=== PATIENT | male | born 1950 | race Caucasian/White ===

== ENCOUNTER 2019-04-09 15:58 | Inpatient (IN) | payer BC, MEDICARE, OTHER ==
[2019-04-09] MEDS ORDERED: SODIUM CHLORIDE 0.9% 1,000 ML IV STA (16:33)
[2019-04-09] MEDS ORDERED: cefTRIAXone IN SWFI 1,000 MG/10 ML SYRINGE IVP STA (17:10)
[2019-04-09 18:07] LABS: Basophils % (A) 1 %; Eosinophils # (A) 0.4 k/uL (0-0.7); Eosinophils % (A) 6 %; HCT 38.9 % (39.0-53.0); HGB 12.5 gm/dL (13.0-17.5); Hypochromasia Slight; Lymphocytes # (A) 2.7 k/uL (1.0-4.8); Lymphocytes % (A) 36 %; MCH 29.5 pg (25.0-35.0); Mean Platelet Volume 6.8; Monocytes # (A) 0.4 k/uL (0-1.0); Monocytes % (A) 5 %; Neutrophils # (A) 3.9 k/uL (1.3-7.7); Neutrophils % (A) 52 %; Platelet Count 241 k/uL (150-450); RBC 4.23 m/uL (4.30-5.90); RDW 14.1 % (11.5-15.5); WBC 7.5 k/uL (3.8-10.6)
[2019-04-09 18:12] LABS: Appearance,Urine Clear (Clear); Bacteria,Urine Few /hpf; Bilirubin,Urine Negative (Negative); Blood,Urine Negative (Negative); Color,Urine Yellow; Glucose,Urine (UA) Negative (Negative); Ketones,Urine Negative (Negative); Leukocyte Esterase,Urine Trace (Negative); Mucus,Urine Rare /hpf; Nitrite,Urine Negative (Negative); PH, Urine 6.5 (5.0-8.0); Protein,Urine Negative (Negative); RBC,Urine <1 /hpf (0-5); Specific Gravity,Urine 1.008 (1.001-1.035); Sperm,Urine Rare /hpf; Squamous Epithelial Cell,Urine <1 /hpf (0-4); WBC,Urine 4 /hpf (0-5)
[2019-04-09 18:16] LABS: ALT 11 U/L (21-72); AST 24 U/L (17-59); African American GFR (CKD) >90 (>60 ml/min/1.73 sqM); Albumin 3.7 g/dL (3.5-5.0); Alkaline Phosphatase 64 U/L (38-126); Anion Gap 7 mmol/L; Blood Urea Nitrogen 9 mg/dL (9-20); Calcium 9.5 mg/dL (8.4-10.2); Carbon Dioxide 33 mmol/L (22-30); Chloride 101 mmol/L (98-107); Glucose 108 mg/dL (74-99); Magnesium 1.7 mg/dL (1.6-2.3); Non-African American GFR(CKD) 89 (>60 ml/min/1.73 sqM); Potassium 4.3 mmol/L (3.5-5.1); Sodium 141 mmol/L (137-145); Total Bilirubin 0.7 mg/dL (0.2-1.3); Total Protein 7.4 g/dL (6.3-8.2)
--- NOTE | 2019-04-09 18:17 | XR ---
EXAMINATION TYPE: XR femur LT DATE OF EXAM: 04/09/2019 COMPARISON: NONE HISTORY: Leg infection TECHNIQUE: 4 views FINDINGS: There is left hip prosthesis. Components are in anatomic position. Knee joint appears intac t. I see no focal bone destruction. There is atherosclerotic vascular calcification. IMPRESSION: Previous surgery. No acute abnormality of the left femur.
--- NOTE | 2019-04-09 19:19 | ED ---
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 Patient is seen by a wound care nurse. Patient was previously on 3 antibiotics for cellulitis and his left femur region. These were oral antibiotics. Patient did complete these, however does have some residual erythema in this region. Patient was advised wound care nurse who presented to ED. Denies any systemic symptoms. Denies other complaints. Systemic: Pt denies fatigue, fever/chills, rash. Pt denies weakness, night sweats, weight loss. Neuro: Pt denies headache, visual disturbances, syncope or pre-syncope. HEENT: Pt denies ocular discharge or irritation, otalgia, rhinorrhea, pharyngitis or notable lymphadenopathy. Cardiopulmonary: Pt denies chest pain, SOB, heart palpitations, dyspnea on exertion. Abdominal/GI: Pt denies abdominal pain, n/v/d. : Pt denies dysuria, burning w/ urination, frequency/urgency. Denies new onset urinary or bowel incontinence. MSK: Pt denies myalgia, loss of strength or function in extremities. Neuro: Pt denies new onset weakness, paresthesias. (Bryn Ching) - Related Data Allergies Allergy/AdvReac Type Severity Reaction Status Date / Time No Known Allergies Allergy Verified 04/09/19 16:04 Review of Systems ROS Other: All systems not noted in ROS Statement are negative. <Raul Mooney - Last Filed: 04/09/19 19:26> ROS Other: All systems not noted in ROS Statement are negative. <Bryn Ching - Last Filed: 04/09/19 19:39> ROS Statement: Those systems with pertinent positive or pertinent negative responses have been documented in the HPI. Past Medical History Past Medical History: CVA/TIA, Diabetes Mellitus, Hyperlipidemia, Hypertension, Myocardial Infarction ([place]) History of Any Multi-Drug Resistant Organisms: None Reported Past Surgical History: Appendectomy, Cholecystectomy, Coronary Bypass/CABG, Orthopedic Surgery Additional Past Surgical History / Comment(s): ANEURYSM REPAIR Past Psychological History: No Psychological Hx Reported Smoking Status: Former smoker Past Alcohol Use History: None Reported Past Drug Use History: None Reported <Bryn Ching - Last Filed: 04/09/19 19:39> General Exam Limitations: physical limitation <Bryn Ching - Last Filed: 04/09/19 19:39> - General Exam Comments Initial Comments: Constitutional: NAD, AOX3, Pt has pleasant affect. HEENT: NC/AT, trachea midline, neck supple, no lymphadenopathy. Posterior pharynx non erythematous, without exudates. External ears appear normal, without discharge. Mucous membranes moist. Eyes PERRLA, EOM intact. There is no scleral icterus. No pallor noted. Cardiopulmonary: RRR, no murmurs, rubs or gallops, no JVD noted. Lungs CTAB in anterior and posterior lan. No peripheral edema. Abdominal exam: Abdomen soft and non-distended. Abdomen non-tender to palpation in all 4 quadrants. Bowel sounds active in LLQ. No hepatosplenomegaly. No ecchymosis Neuro: CN II-XII grossly intact. No nuchal rigidity. No raccon eyes, no castillo sign, no hemotympanum. No cervical spinal tenderness. MSK: No posterior calf tenderness bilaterally, homans sign negative bilaterally. Posterior tibialis and radial pulse +2 bilaterally. Sensation intact in upper and lower extremities. Full active ROM in upper and lower extremities, 5/5 stregnth. Derm: Cellulitis noted on left lateral femur region. No fluctuance. No discharge. Intertrigo noted that skin flaps. (Bryn Ching) Course <Raul Mooney - Last Filed: 04/09/19 19:26> Vital Signs 04/09/19 04/09/19 04/09/19 16:05 16:30 17:00 Temperature 97.1 F L Pulse Rate 66 65 68 Respiratory 18 16 19 Rate Blood Pressure 105/71 105/71 105/71 O2 Sat by Pulse 98 97 Oximetry 04/09/19 04/09/19 17:30 18:30 Temperature Pulse Rate 67 66 Respiratory 15 16 Rate Blood Pressure 142/76 136/67 O2 Sat by Pulse 97 97 Oximetry - Reevaluation(s) Reevaluation #1: 04/09/19 19:26 PA supervision: I proceeded evaluate this case patient does demonstrate evidence of cellulitis. He will require admission with wound care and infectious disease consultation the case is discussed with Dr. Guerrero (Raul Mooney) Medical Decision Making - Lab Data Result diagrams: 04/09/19 17:39 04/09/19 17:39 <Raul Mooney - Last Filed: 04/09/19 19:26> - Lab Data Result diagrams: 04/09/19 17:39 04/09/19 17:39 <Bryn Ching - Last Filed: 04/09/19 19:39> - Medical Decision Making 69-year-old male patient presented to ED for cellulitis and left femur. Patient was in stable, afebrile. Physical exam displayed cellulitis, intertrigo. Laboratory investigations non-impressive. Plain film femur did not display acute process. Patient will be admitted, started on Rocephin. Blood cultures pending. Accepting physician Dr. Guerrero, ID on consult. Case discussed with Dr. Mooney. (Bryn Ching) - Lab Data Lab Results 04/09/19 04/09/19 04/09/19 Range/Units 17:39 17:39 17:42 WBC 7.5 (3.8-10.6) k/uL RBC 4.23 L (4.30-5.90) m/uL Hgb 12.5 L (13.0-17.5) gm/dL Hct 38.9 L (39.0-53.0) % MCV 92.0 (80.0-100.0) fL MCH 29.5 (25.0-35.0) pg MCHC 32.0 (31.0-37.0) g/dL RDW 14.1 (11.5-15.5) % Plt Count 241 (150-450) k/uL Neutrophils % 52 % Lymphocytes % 36 % Monocytes % 5 % Eosinophils % 6 % Basophils % 1 % Neutrophils # 3.9 (1.3-7.7) k/uL Lymphocytes # 2.7 (1.0-4.8) k/uL Monocytes # 0.4 (0-1.0) k/uL Eosinophils # 0.4 (0-0.7) k/uL Basophils # 0.0 (0-0.2) k/uL Hypochromasia Slight Sodium 141 (137-145) mmol/L Potassium 4.3 (3.5-5.1) mmol/L Chloride 101 (98-107) mmol/L Carbon Dioxide 33 H (22-30) mmol/L Anion Gap 7 mmol/L BUN 9 (9-20) mg/dL Creatinine 0.83 (0.66-1.25) mg/dL Est GFR (CKD-EPI)AfAm >90 (>60 ml/min/1.73 sqM) Est GFR (CKD-EPI)NonAf 89 (>60 ml/min/1.73 sqM) Glucose 108 H (74-99) mg/dL Plasma Lactic Acid [place] (0.7-2.0) mmol/L Calcium 9.5 (8.4-10.2) mg/dL Magnesium 1.7 (1.6-2.3) mg/dL Total Bilirubin 0.7 (0.2-1.3) mg/dL AST 24 (17-59) U/L ALT 11 L (21-72) U/L Alkaline Phosphatase 64 (38-126) U/L Total Protein 7.4 (6.3-8.2) g/dL Albumin 3.7 (3.5-5.0) g/dL Urine Color Yellow Urine Appearance Clear (Clear) Urine pH 6.5 (5.0-8.0) Ur Specific [place] 1.008 (1.001-1.035) Urine Protein Negative (Negative) Urine Glucose (UA) Negative (Negative) Urine Ketones Negative (Negative) Urine Blood Negative (Negative) Urine Nitrite Negative (Negative) Urine Bilirubin Negative (Negative) Urine Urobilinogen 2.0 (<2.0) mg/dL Ur Leukocyte Esterase Trace H (Negative) Urine RBC <1 (0-5) /hpf Urine WBC 4 (0-5) /hpf Ur Squamous Epith Cells <1 (0-4) /hpf Urine Bacteria Few H (None) /hpf Urine Mucus Rare H (None) /hpf Urine Sperm Rare (None) /hpf 04/09/19 Range/Units 18:00 WBC (3.8-10.6) k/uL RBC (4.30-5.90) m/uL Hgb (13.0-17.5) gm/dL Hct (39.0-53.0) % MCV (80.0-100.0) fL MCH (25.0-35.0) pg MCHC (31.0-37.0) g/dL RDW (11.5-15.5) % Plt Count (150-450) k/uL Neutrophils % % Lymphocytes % % Monocytes % % Eosinophils % % Basophils % % Neutrophils # (1.3-7.7) k/uL Lymphocytes # (1.0-4.8) k/uL Monocytes # (0-1.0) k/uL Eosinophils # (0-0.7) k/uL Basophils # (0-0.2) k/uL Hypochromasia Sodium (137-145) mmol/L Potassium (3.5-5.1) mmol/L Chloride (98-107) mmol/L Carbon Dioxide (22-30) mmol/L Anion Gap mmol/L BUN (9-20) mg/dL Creatinine (0.66-1.25) mg/dL Est GFR (CKD-EPI)AfAm (>60 ml/min/1.73 sqM) Est GFR (CKD-EPI)NonAf (>60 ml/min/1.73 sqM) Glucose (74-99) mg/dL Plasma Lactic Acid [place] 1.5 (0.7-2.0) mmol/L Calcium (8.4-10.2) mg/dL Magnesium (1.6-2.3) mg/dL Total Bilirubin (0.2-1.3) mg/dL AST (17-59) U/L ALT (21-72) U/L Alkaline Phosphatase (38-126) U/L Total Protein (6.3-8.2) g/dL Albumin (3.5-5.0) g/dL Urine Color Urine Appearance (Clear) Urine pH (5.0-8.0) Ur Specific [place] (1.001-1.035) Urine Protein (Negative) Urine Glucose (UA) (Negative) Urine Ketones (Negative) Urine Blood (Negative) Urine Nitrite (Negative) Urine Bilirubin (Negative) Urine Urobilinogen (<2.0) mg/dL Ur Leukocyte Esterase (Negative) Urine RBC (0-5) /hpf Urine WBC (0-5) /hpf Ur Squamous Epith Cells (0-4) /hpf Urine Bacteria (None) /hpf Urine Mucus (None) /hpf Urine Sperm (None) /hpf Disposition <Raul Mooney - Last Filed: 04/09/19 19:26> Is patient prescribed a controlled substance at d/c from ED?: No <Bryn Ching - Last Filed: 04/09/19 19:39> Clinical Impression: Cellulitis Disposition: ADMITTED IP TO THIS HOSP Condition: Fair Referrals: [facility],Clinic [Primary Care Provider] - 1-2 days
[2019-04-09] MEDS ORDERED: NALOXONE 0.4 MG/ML 1 ML VIAL IV PRN (19:39)
[2019-04-09] MEDS ORDERED: IBUPROFEN 400 MG TAB PO PRN (19:39)
[2019-04-09] MEDS: SODIUM CHLORIDE 0.9% 1,000 ML IV SCH (20:22)
[2019-04-09] MEDS: PIPERACILLIN-TAZOBACTAM 3.375 GM in SODIUM CHLORIDE 0.9% 100 ML IVPB SCH (20:23)
[2019-04-09] MEDS ORDERED: ALPRAZolam 0.5 MG TAB PO PRN (21:12)
[2019-04-09] MEDS ORDERED: FLUCONAZOLE 100 MG TAB PO ONE (21:14)
[2019-04-09 21:33] LABS: Glucose,Whole Blood 88 mg/dL (75-99)
[2019-04-09 21:36] VITALS: BMI 78.1
--- NOTE | 2019-04-09 23:54 | HP ---
HISTORY AND PHYSICAL CHIEF COMPLAINT: Pain and swelling of the left leg. HISTORY OF PRESENT ILLNESS: This 69-year-old gentleman with a past medical history of multiple medical problems, including a stroke on the left side in July, history of diabetes, hypertension, hyperlipidemia, myocardial infarction, cholecystectomy, CAD, CABG being followed by Dr. Fernandez in the outpatient setting was noted to have significant ulcerations, cellulitis on the left femur area. The patient also excoriated, the patient apparently had some urinary incontinence. External urinary catheter is also being used. The patient presented to [facility] Emergency Room and was admitted for further evaluation and treatment. Minimal areas of excoriations noted. There is no history of fever, rigors, chills at this time. PAST MEDICAL HISTORY: CVA, TIA, diabetes type 2, hypertension, hyperlipidemia, myocardial infarction, appendectomy, CAD, CABG, aneurysm repair. MEDICATIONS: Home medications are: 1. Simvastatin 1 tablet p.o. daily. 2. Multivitamins 1 p.o. daily. 3. Melatonin 5 mg q.h.s. 4. Prinivil 10 mg p.o. daily. 5. Lantus 40 units subcu daily. 6. Imdur 1 tab. 7. Hydrochlorothiazide 1 tab daily. 8. Hydrocodone. 9. [place] 5 mg daily. 10.Neurontin 300 mg p.o. daily. 11.Effexor XR 1 capsule p.o. daily. 12.Plavix 75 mg p.o. daily. 13.Tenormin 12.5 mg p.o. daily. 14.Ecotrin 81 mg p.o. daily. 15.Xanax 0.5 daily p.r.n. ALLERGIES: None. FAMILY HISTORY: No history of heart disease or strokes in the family. SOCIAL HISTORY: Previous history of smoking. No history of alcohol or smoking currently. REVIEW OF SYSTEMS: ENT diminished vision. Diminished hearing. CARDIOVASCULAR: No angina or palpitations. RESPIRATION: No cough or hemoptysis. GI no nausea or vomiting. : As mentioned earlier. NERVOUS SYSTEM: As mentioned earlier. ALLERGY/IMMUNOLOGY: No asthma or hayfever. MUSCULOSKELETAL: As mentioned earlier. HEMATOLOGY/ONCOLOGY: No history of anemia. ENDOCRINE: As mentioned earlier. CONSTITUTIONAL: As mentioned earlier. DERMATOLOGY negative. PSYCHIATRY as mentioned. RHEUMATOLOGY: Negative. PHYSICAL EXAMINATION: Alert and oriented x3. Pulse is 67. Blood pressure 142/70. Respirations 20. Temperature normal. Pulse ox 97% on room air. HEENT: Conjunctivae normal. Oral mucosa moist. NECK is no jugular venous distention. No carotid bruit. No lymph node enlargement. CARDIOVASCULAR: S1, S2 muffled. RESPIRATORY: Breath sounds diminished in the bases. A few scattered rhonchi. No crackles. ABDOMEN: Soft, nontender. No mass palpable. LEGS: Significant erythema and cellulitis. Excoriation of the left femur in the groin area also present. NERVOUS SYSTEM: Higher functions as mentioned earlier, significant weakness of the left side with some contractures also present. SKIN: As mentioned earlier. JOINTS: No active deforming arthropathy. Lymphatics: No lymph nodes palpable in the neck, axillae or groin. LAB: WBC 7.5, hemoglobin 12.5. Other labs are reviewed. UA noted. Femur x-ray reviewed which showed previous surgery. No acute fracture. ASSESSMENT: 1. Significant cellulitis and severe pain of the left leg with failure of outpatient treatment. 2. Possibly candidal intertrigo. 3. Cerebrovascular accident, transient ischemic attack history with left-sided residual paralysis/weakness. 4. Diabetes mellitus type 2. 5. Hypertension. 6. Hyperlipidemia. 7. Gait dysfunction. 8. History of myocardial infarction. 9. History of coronary artery disease, coronary artery bypass grafting. 10.History of orthopedic surgery. 11.History of aneurysm repair. 12.History of nicotine dependence. 13.Obesity with body mass index of 34.4. RECOMMENDATIONS AND DISCUSSION: In this 69-year-old gentleman who presented with multiple complex medical issues, we will monitor the patient closely, continue the current medications, management and we will initiate broad-spectrum antibiotics and antifungals. Symptomatic treatment, pain management. Otherwise DVT prophylaxis and also Infectious Disease evaluation. Resume the home medication. Monitor blood sugars closely. Prognosis guarded because of multiple complex medical issues. A copy of this dictation being forwarded to Dr. Fernandez who is the primary physician. MMODL / IJN: [id number] /
[2019-04-10] MEDS: SODIUM CHLORIDE 0.9% 1,000 ML IV SCH (05:51)
[2019-04-10 07:03] LABS: Glucose,Whole Blood 119 mg/dL (75-99)
[2019-04-10] MEDS: PANTOPRAZOLE 40 MG TABLET PO SCH (08:13)
[2019-04-10] MEDS: GABAPENTIN 300 MG CAP PO SCH (08:13)
[2019-04-10] MEDS: CLOPIDOGREL 75 MG TAB PO SCH (08:13)
[2019-04-10] MEDS: ASPIRIN 81 MG PO SCH (08:13)
[2019-04-10] MEDS: MULTIVITAMINS, THERA 1 EACH TAB PO SCH (08:13)
[2019-04-10] MEDS: ATENOLOL 25 MG TAB PO SCH (08:14)
[2019-04-10] MEDS: LISINOPRIL 10 MG TAB PO SCH (08:14)
[2019-04-10] MEDS: FLUCONAZOLE 100 MG TAB PO SCH (08:14)
[2019-04-10] MEDS: INSULIN DETEMIR (LEVEMIR) 100 UNIT/ML SYR SQ SCH (08:14)
[2019-04-10] MEDS: HEPARIN SODIUM,PORCINE 5,000 UNIT/ML 1 ML VIAL SQ SCH ×2 (08:15→21:56)
[2019-04-10] MEDS: INSULIN ASPART (NovoLOG) 100 UNIT/ML VIAL SQ SCH ×4 (08:29→21:59)
[2019-04-10] MEDS: PIPERACILLIN-TAZOBACTAM 3.375 GM in SODIUM CHLORIDE 0.9% 100 ML IVPB SCH ×2 (08:37→15:05)
[2019-04-10 08:57] LABS: Basophils % (A) 1 %; Eosinophils # (A) 0.4 k/uL (0-0.7); Eosinophils % (A) 5 %; HCT 40.7 % (39.0-53.0); HGB 12.5 gm/dL (13.0-17.5); Hypochromasia Slight; Lymphocytes # (A) 2.3 k/uL (1.0-4.8); Lymphocytes % (A) 33 %; MCH 28.6 pg (25.0-35.0); MCHC 30.7 g/dL (31.0-37.0); Mean Platelet Volume 6.8; Monocytes # (A) 0.4 k/uL (0-1.0); Monocytes % (A) 6 %; Neutrophils # (A) 3.8 k/uL (1.3-7.7); Neutrophils % (A) 54 %; Platelet Count 237 k/uL (150-450); RBC 4.37 m/uL (4.30-5.90); RDW 13.9 % (11.5-15.5)
[2019-04-10] MEDS ORDERED: HYDROcodone/APAP 5-325MG 1 EACH TAB PO PRN (09:00)
[2019-04-10 09:12] LABS: African American GFR (CKD) >90 (>60 ml/min/1.73 sqM); Anion Gap 9 mmol/L; Blood Urea Nitrogen 8 mg/dL (9-20); Calcium 9.2 mg/dL (8.4-10.2); Carbon Dioxide 27 mmol/L (22-30); Chloride 106 mmol/L (98-107); Glucose 113 mg/dL (74-99); Non-African American GFR(CKD) 89 (>60 ml/min/1.73 sqM); Potassium 4.3 mmol/L (3.5-5.1); Sodium 142 mmol/L (137-145)
[2019-04-10 12:32] LABS: Glucose,Whole Blood 114 mg/dL (75-99)
[2019-04-10] MEDS: ATORVASTATIN 20 MG TAB PO SCH (15:04)
[2019-04-10] MEDS: VENLAFAXINE HCL ER 37.5 MG CAP PO SCH (15:05)
[2019-04-10] MEDS: ISOSORBIDE MONONITRATE ER 30 MG TAB.ER.24H PO SCH (15:05)
[2019-04-10 17:25] LABS: Glucose,Whole Blood 83 mg/dL (75-99)
--- NOTE | 2019-04-10 17:43 | PN ---
PROGRESS NOTE DATE OF SERVICE: 04/10/2019 This is 69-year-old gentleman who had a past medical history of significant stroke was admitted with significant cellulitis and fungal candidiasis to the hospital. The patient was given IV antibiotics. Patient being closely monitored at this time. Infectious Disease following the patient closely. PAST MEDICAL HISTORY: Reviewed. REVIEW OF SYSTEMS: CARDIOVASCULAR SYSTEM: No angina or palpitations. RESPIRATORY: As mentioned earlier. GI no nausea or vomiting. no dysuria. NERVOUS SYSTEM: No numbness or weakness. CURRENT MEDICATIONS: Reviewed and include: 1. [place] 5 mg q.4 p.r.n. 2. Xanax 0.5 daily. 3. Aspirin 81 mg daily. 4. Tenormin 12.5 mg. 5. Lipitor 20 mg daily. 6. Plavix 75 mg daily. 7. Diflucan 100 mg p.o. daily. 8. Neurontin 300 mg p.o. daily. 9. Heparin 5000 units subcu b.i.d. 10.Motrin 400 mg q.6h. 11.NovoLog scale. 12.Levemir 40 units subcu daily. 13.Imdur 30 mg p.o. daily. 14.Zestril 10 mg p.o. daily. 15.Melatonin 5 mg p.o. q.h.s. 16.Multivitamins one p.o. daily. 17.Narcan 0.2 q.2 p.r.n. 18.Protonix 40 mg daily. 19.Zosyn 3.375 IV q.8. 20.Effexor XR 37.5 mg p.o. daily. PHYSICAL EXAMINATION: Alert and oriented times three. Pulse 62, blood pressure 150/55, respiration 16, temperature 98 degrees, pulse ox 98% on room air. HEENT: Conjunctivae normal. Oral mucosa moist. NECK is no jugular venous distention. No carotid bruit. No lymph node enlargement. CARDIOVASCULAR: S1, S2 muffled. RESPIRATORY: Breath sounds diminished in the bases. A few scattered rhonchi and crackles. ABDOMEN: Soft. Nontender. LEGS significant swelling and edema and erythema of the left leg present. Fungal intertrigo present. NERVOUS SYSTEM: Higher functions as mentioned earlier. Moves right-sided. Left-sided hemiplegia with some contractures present. SKIN as mentioned. JOINTS: No active deforming arthropathy. LABS: WBC 7, hemoglobin 12.5, glucose 113. ASSESSMENT: 1. Severe cellulitis and severe pain of the left leg with failure of outpatient treatment. 2. Possibly [place] intertrigo. 3. Cerebrovascular accident/transient ischemic attack with history of left-sided residual paralysis and weakness. 4. Diabetes type 2. 5. Hypertension. 6. Hyperlipidemia. 7. Gait dysfunction. 8. History of myocardial infarction. 9. History of coronary artery disease, coronary artery bypass grafting. 10.History of orthopedic surgery. 11.History of aneurysm repair. 12.History of nicotine dependence. 13.History of obesity with body mass index of 34.4. RECOMMENDATIONS AND DISCUSSION: I recommend to continue current medications, management and continue the antibiotics, antifungals. Continue symptomatic treatment. DVT prophylaxis. Resume the home medications. Repeat labs. Monitor blood sugars closely. Prognosis guarded because of multiple complex medical issues. Further recommendations to follow. DONNA / SUBHA: [id number] /
[2019-04-10 20:53] LABS: Glucose,Whole Blood 120 mg/dL (75-99)
--- NOTE | 2019-04-10 23:48 | P.CONS ---
History of Present Illness - Reason for Consult Consult date: 04/10/19 - Chief Complaint Weakness and tenderness - History of Present Illness 69 male who has a long-standing history of many medical troubles and includes diabetes hypertension coronary artery disease and this past year developed a cerebrovascular accident with dense left hemiparesis. He is cared for by family in the home setting. Is having increasing difficulties with the irritation to the skin in the groin as well as onto the left lateral thigh area. It's become painful a to feel poorly and low-grade fever Lorenzo was brought to Hospital further evaluation. He is not a good historian. Transfer text Review of Systems HEENT:Denies headache or acute visual change. Has had some chronic sinus difficulties no difficulty with swallowing after his stroke. Lungs: Denies significant shortness of breath, cough, sputum production, or hemoptysis. Cardiovascular: Denies significant shortness of breath, chest pain, chest wall pain, orthopnea, dyspnea on exertion, syncope Gastrointestinal:Denies nausea, vomiting, diarrhea, constipation, hematemesis, melena, hematochezia. No no significant change of bowel habit noticed. Musculoskeletal: denies significant myalgias or arthralgias. No new joint swelling. Denies new back pain. Skin: Denies new rash or lesions. No new ulcers or wounds are related.. Neuro: Chronic left hemiparesis, relates that with a walker is able to stand briefly on the right lower extremity which helps him with his transfers at home they do utilize slide boards also no Marlene lift Psychiatric: Chronic anxiety and depression since the stroke Endocrine: Chronic fatigue weight has increased Past Medical History Past Medical History: CVA/TIA, Diabetes Mellitus, Hyperlipidemia, Hypertension, Myocardial Infarction (DE) Additional Past Medical History / Comment(s): CVA July 2018. Last Myocardial Infarction Date:: 1998 History of Any Multi-Drug Resistant Organisms: None Reported Past Surgical History: Appendectomy, Cholecystectomy, Coronary Bypass/CABG, Orthopedic Surgery Additional Past Surgical History / Comment(s): ANEURYSM REPAIR Past Psychological History: No Psychological Hx Reported Additional Psychological History / Comment(s): and lives in the family home with the and family members. Moved from [place]. 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 No tobacco use. No experience. No recent travel. Pet dog in the home Smoking Status: Former smoker Past Alcohol Use History: None Reported Past Drug Use History: None Reported Medications and Allergies Home Medications and Allergies Comment(s): Current Medications Hydrocodone Bitart/Acetaminophen (Ralston 5-325) 1 each PO Q4HR PRN PRN Reason: Moderate Pain Hydrocodone Bitart/Acetaminophen (Ralston 5-325) 1 each PO DAILY PRN PRN Reason: MODERATE PAIN Alprazolam (Xanax) 0.5 mg PO DAILY PRN PRN Reason: Anxiety Aspirin (Aspirin) 81 mg PO DAILY [facility] Last Admin: 04/10/19 08:13 Dose: 81 mg Documented by: Atenolol (Tenormin) 12.5 mg PO DAILY [facility] Last Admin: 04/10/19 08:14 Dose: 12.5 mg Documented by: Atorvastatin Calcium (Lipitor) 20 mg PO DAILY [facility] Last Admin: 04/10/19 15:04 Dose: 20 mg Documented by: Clopidogrel Bisulfate (Plavix) 75 mg PO DAILY [facility] Last Admin: 04/10/19 08:13 Dose: 75 mg Documented by: Fluconazole (Diflucan) 100 mg PO DAILY [facility] Last Admin: 04/10/19 08:14 Dose: 100 mg Documented by: Gabapentin (Neurontin) 300 mg PO DAILY [facility] Last Admin: 04/10/19 08:13 Dose: 300 mg Documented by: Heparin Sodium (Porcine) (Heparin) 5,000 unit SQ Q12HR [facility] Last Admin: 04/10/19 21:56 Dose: 5,000 unit Documented by: Sodium Chloride (Saline 0.9%) 1,000 mls @ 20 mls/hr IV .Q24H [facility] Last Admin: 04/10/19 05:51 Dose: Not Given Documented by: Piperacillin Sod/Tazobactam (Sod 3.375 gm/ Sodium Chloride) 100 mls @ 25 mls/hr IVPB Q8HR [facility] Last Admin: 04/10/19 15:05 Dose: 25 mls/hr Documented by: Ibuprofen (Motrin) 400 mg PO Q6HR PRN PRN Reason: Mild Pain or Fever > 100.5 Insulin Aspart (Novolog) 0 unit SQ ACHS [facility]; Protocol Last Admin: 04/10/19 21:59 Dose: Not Given Documented by: Insulin Detemir (Levemir) 40 unit SQ DAILY@0700 [facility] Last Admin: 04/10/19 08:14 Dose: 40 unit Documented by: Isosorbide Mononitrate (Imdur) 30 mg PO DAILY [facility] Last Admin: 04/10/19 15:05 Dose: 30 mg Documented by: Lisinopril (Zestril) 10 mg PO DAILY [facility] Last Admin: 04/10/19 08:14 Dose: 10 mg Documented by: Melatonin (Melatonin) 5 mg PO HS PRN PRN Reason: Insomnia Multivitamins (Theragran) 1 each PO DAILY [facility] Last Admin: 04/10/19 08:13 Dose: 1 each Documented by: Naloxone HCl (Narcan) 0.2 mg IV Q2M PRN PRN Reason: Opioid Reversal Pantoprazole Sodium (Protonix) 40 mg PO AC-BRKFST [facility] Last Admin: 04/10/19 08:13 Dose: 40 mg Documented by: Venlafaxine HCl (Effexor Xr) 37.5 mg PO DAILY [facility] Last Admin: 04/10/19 15:05 Dose: 37.5 mg Documented by: Home Medications Medication Instructions Recorded Confirmed Type ALPRAZolam [Xanax] 0.5 mg PO DAILY PRN 04/09/19 04/09/19 History Aspirin EC [Ecotrin Low Dose] 81 mg PO DAILY 04/09/19 04/09/19 History Atenolol [Tenormin] 12.5 mg PO DAILY 04/09/19 04/09/19 History Clopidogrel [Plavix] 75 mg PO DAILY 04/09/19 04/09/19 History Gabapentin [Neurontin] 300 mg PO DAILY 04/09/19 04/09/19 History HYDROcodone/APAP 5-325MG [Ralston 1 tab PO DAILY 04/09/19 04/09/19 History 5-325] Insulin Glargine,Hum.rec.anlog 40 unit SQ DAILY 04/09/19 04/09/19 History [Lantus Solostar] Lisinopril [Prinivil] 10 mg PO DAILY 04/09/19 04/09/19 History Melatonin 5 mg PO HS 04/09/19 04/09/19 History Multivitamins, Thera [Multivitamin 1 tab PO DAILY 04/09/19 04/09/19 History (formulary)] Hydrochlorothiazide 12.5 mg PO DAILY 04/10/19 04/10/19 History Isosorbide Mononitrate ER [Imdur] 30 mg PO DAILY 04/10/19 04/10/19 History Simvastatin [Zocor] 40 mg PO DAILY 04/10/19 04/10/19 History Venlafaxine HCl ER [Effexor Xr] 37.5 mg PO DAILY 04/10/19 04/10/19 History Allergies Allergy/AdvReac Type Severity Reaction Status Date / Time No Known Allergies Allergy Verified 04/09/19 19:58 Physical Exam Vitals: Vital Signs Temp Pulse Resp BP Pulse Ox 04/10/19 13:10 98.0 F 62 16 150/55 98 04/10/19 04:35 98.2 F 76 20 134/69 96 Intake and Output 04/10/19 04/10/19 04/11/19 14:59 22:59 06:59 Intake Total 950 Balance 950 Intake: Oral 950 Other: Voiding Method Urinal Urinal # Voids 3 0 # Bowel Movements 1 Obese 69-year-old male comfortable HEENT: Anicteric conjunctiva are pink and moist nasal mucosa grossly intact without significant lesions, there is no thrush. Neck: The neck is supple without significant lymphadenopathy or thyromegaly. Lungs: Good bilateral air entry without significant crackles or wheezing. There is no significant bronchial sounds. There is no egophony or dullness. Heart: Regular rate and rhythm with an audible S1-S2, no S3 no S4. There is no significant murmur click or rub, PMI was nondisplaced. Abdomen: Positive bowel sounds soft and nontender without palpable masses or organomegaly. There was no guarding or rebound. Extremities: The upper extremities have excellent pulses they are symmetric, no significant petechiae or telangiectasia. No splinter hemorrhages were noted. The lower extremities are free from significant edema. The peripheral pulses were 2+ and symmetric. Neuro: Dense left hemiparesis is able to speak, he is able to self feed. Skin reveals evidence of the dense erythema to the groin and upper thighs and lateral left thigh area. There is some mild erythema also to the base of the scrotum but no significant ulcerations are seen at this time. Results CBC & Chem 7: 04/10/19 08:04 04/10/19 08:04 Labs: Abnormal Lab Results - Last 24 Hours (Table) 04/10/19 04/10/19 04/10/19 Range/Units 07:01 08:04 08:04 Hgb 12.5 L (13.0-17.5) gm/dL MCHC 30.7 L (31.0-37.0) g/dL BUN 8 L (9-20) mg/dL Glucose 113 H (74-99) mg/dL POC Glucose (mg/dL) 119 H (75-99) mg/dL 04/10/19 04/10/19 Range/Units 12:24 20:49 Hgb (13.0-17.5) gm/dL MCHC (31.0-37.0) g/dL BUN (9-20) mg/dL Glucose (74-99) mg/dL POC Glucose (mg/dL) 114 H 120 H (75-99) mg/dL Microbiology - Last 24 Hours (Table) 04/09/19 17:39 Blood Culture - Preliminary Blood No Growth after 24 hours 04/10/19 04:45 Gram Stain - Preliminary Thigh - Left Wound Culture - Preliminary 04/10/19 04:45 Anaerobic Culture - Preliminary Thigh - Left Laboratory Results WBC 7.0 k/uL (3.8-10.6) 04/10/19 08:04 RBC 4.37 m/uL (4.30-5.90) 04/10/19 08:04 Hgb 12.5 gm/dL (13.0-17.5) L 04/10/19 08:04 Hct 40.7 % (39.0-53.0) 04/10/19 08:04 MCV 93.0 fL (80.0-100.0) 04/10/19 08:04 MCH 28.6 pg (25.0-35.0) 04/10/19 08:04 MCHC 30.7 g/dL (31.0-37.0) L 04/10/19 08:04 RDW 13.9 % (11.5-15.5) 04/10/19 08:04 Plt Count 237 k/uL (150-450) 04/10/19 08:04 Neutrophils % 54 % 04/10/19 08:04 Lymphocytes % 33 % 04/10/19 08:04 Monocytes % 6 % 04/10/19 08:04 Eosinophils % 5 % 04/10/19 08:04 Basophils % 1 % 04/10/19 08:04 Neutrophils # 3.8 k/uL (1.3-7.7) 04/10/19 08:04 Lymphocytes # 2.3 k/uL (1.0-4.8) 04/10/19 08:04 Monocytes # 0.4 k/uL (0-1.0) 04/10/19 08:04 Eosinophils # 0.4 k/uL (0-0.7) 04/10/19 08:04 Basophils # 0.0 k/uL (0-0.2) 04/10/19 08:04 Hypochromasia Slight 04/10/19 08:04 Sodium 142 mmol/L (137-145) 04/10/19 08:04 Potassium 4.3 mmol/L (3.5-5.1) 04/10/19 08:04 Chloride 106 mmol/L (98-107) 04/10/19 08:04 Carbon Dioxide 27 mmol/L (22-30) 04/10/19 08:04 Anion Gap 9 mmol/L 04/10/19 08:04 BUN 8 mg/dL (9-20) L 04/10/19 08:04 Creatinine 0.81 mg/dL (0.66-1.25) 04/10/19 08:04 Est GFR (CKD-EPI)AfAm >90 (>60 ml/min/1.73 sqM) 04/10/19 08:04 Est GFR (CKD-EPI)NonAf 89 (>60 ml/min/1.73 sqM) 04/10/19 08:04 Glucose 113 mg/dL (74-99) H 04/10/19 08:04 POC Glucose (mg/dL) 120 mg/dL (75-99) H 04/10/19 20:49 POC Glu [employer] Supervisor ID Allie Martin 04/10/19 20:49 Plasma Lactic Acid Deangelo 1.5 mmol/L (0.7-2.0) 04/09/19 18:00 Calcium 9.2 mg/dL (8.4-10.2) 04/10/19 08:04 Magnesium 1.7 mg/dL (1.6-2.3) 04/09/19 17:39 Total Bilirubin 0.7 mg/dL (0.2-1.3) 04/09/19 17:39 AST 24 U/L (17-59) 04/09/19 17:39 ALT 11 U/L (21-72) L 04/09/19 17:39 Alkaline Phosphatase 64 U/L (38-126) 04/09/19 17:39 Total Protein 7.4 g/dL (6.3-8.2) 04/09/19 17:39 Albumin 3.7 g/dL (3.5-5.0) 04/09/19 17:39 Urine Color Yellow 04/09/19 17:42 Urine Appearance Clear (Clear) 04/09/19 17:42 Urine pH 6.5 (5.0-8.0) 04/09/19 17:42 Ur Specific [place] 1.008 (1.001-1.035) 04/09/19 17:42 Urine Protein Negative (Negative) 04/09/19 17:42 Urine Glucose (UA) Negative (Negative) 04/09/19 17:42 Urine Ketones Negative (Negative) 04/09/19 17:42 Urine Blood Negative (Negative) 04/09/19 17:42 Urine Nitrite Negative (Negative) 04/09/19 17:42 Urine Bilirubin Negative (Negative) 04/09/19 17:42 Urine Urobilinogen 2.0 mg/dL (<2.0) 04/09/19 17:42 Ur Leukocyte Esterase Trace (Negative) H 04/09/19 17:42 Urine RBC <1 /hpf (0-5) 04/09/19 17:42 Urine WBC 4 /hpf (0-5) 04/09/19 17:42 Ur Squamous Epith Cells <1 /hpf (0-4) 04/09/19 17:42 Urine Bacteria Few /hpf (None) H 04/09/19 17:42 Urine Mucus Rare /hpf (None) H 04/09/19 17:42 Urine Sperm Rare /hpf (None) 04/09/19 17:42 Microbiology 04/09/19 17:39 Blood Blood Culture - Preliminary No Growth after 24 hours 04/10/19 04:45 Thigh - Left Gram Stain - Preliminary 04/10/19 04:45 Thigh - Left Wound Culture - Preliminary 04/10/19 04:45 Thigh - Left Anaerobic Culture - Preliminary Assessment and Plan (1) Cellulitis Narrative/Plan: 69-year-old male who has a history of obesity, diabetes, coronary artery disease in the extensive stroke with the left hemiparesis is under the care of his family home setting. He has difficulty with urinary incontinence is now developed evidence of the stability and irritation to the skin in the perineum bilateral thighs and on the left lateral thigh. There are no significant open ulcerations but there is evidence of the significant erythema and Eloise infection of this region. Antibiotic therapy has been initiated with Zosyn and antifungal therapy with fluconazole. Intertrigo is requested for the abdominal fold. And from the cart with thick zinc cream can be utilized to cover all of these areas to allow some healing. Cultures are process will further help direct antibiotic therapy. It is not clear if the plan at this point in time is for the patient to go to rehab for a while to allow some improvement of his status. Assessment of his equipment for home could be helpful ensure that he has an air mattress, Roho cushion for his wheelchair and may do well to have a Marlene lift if needed. Enhance glucose control will help with the cutaneous infections. Current Visit: Yes Status: Acute Code(s): L03.90 - CELLULITIS, UNSPECIFIED SNOMED Code(s): 177444590 (2) Eloise infection Current Visit: Yes Status: Acute Code(s): B37.9 - CANDIDIASIS, UNSPECIFIED SNOMED Code(s): 59218510 (3) Eloise infection of genital region Current Visit: Yes Status: Acute Code(s): B37.49 - OTHER UROGENITAL CANDIDIASIS SNOMED Code(s): 911064796 (4) Hemiparesis affecting left side as late effect of cerebrovascular accident Current Visit: Yes Status: Acute Code(s): I69.354 - HEMIPLGA FOLLOWING CEREBRAL INFRC AFFECTING LEFT NONDOM SIDE SNOMED Code(s): 181092825
[2019-04-11] MEDS: PIPERACILLIN-TAZOBACTAM 3.375 GM in SODIUM CHLORIDE 0.9% 100 ML IVPB SCH ×4 (00:20→23:34)
[2019-04-11] MEDS: SODIUM CHLORIDE 0.9% 1,000 ML IV SCH (06:04)
[2019-04-11 07:04] LABS: Glucose,Whole Blood 110 mg/dL (75-99)
[2019-04-11] MEDS: INSULIN ASPART (NovoLOG) 100 UNIT/ML VIAL SQ SCH ×4 (07:11→22:29)
[2019-04-11] MEDS: ATORVASTATIN 20 MG TAB PO SCH (08:22)
[2019-04-11] MEDS: CLOPIDOGREL 75 MG TAB PO SCH (08:22)
[2019-04-11] MEDS: FLUCONAZOLE 100 MG TAB PO SCH (08:22)
[2019-04-11] MEDS: PANTOPRAZOLE 40 MG TABLET PO SCH (08:22)
[2019-04-11] MEDS: ASPIRIN 81 MG PO SCH (08:22)
[2019-04-11] MEDS: LISINOPRIL 10 MG TAB PO SCH (08:23)
[2019-04-11] MEDS: ATENOLOL 25 MG TAB PO SCH (08:23)
[2019-04-11] MEDS: MULTIVITAMINS, THERA 1 EACH TAB PO SCH (08:23)
[2019-04-11] MEDS: VENLAFAXINE HCL ER 37.5 MG CAP PO SCH (08:23)
[2019-04-11] MEDS: ISOSORBIDE MONONITRATE ER 30 MG TAB.ER.24H PO SCH (08:23)
[2019-04-11] MEDS: GABAPENTIN 300 MG CAP PO SCH (08:23)
[2019-04-11] MEDS: INSULIN DETEMIR (LEVEMIR) 100 UNIT/ML SYR SQ SCH (08:24)
[2019-04-11] MEDS: HEPARIN SODIUM,PORCINE 5,000 UNIT/ML 1 ML VIAL SQ SCH ×2 (08:27→22:29)
[2019-04-11 08:36] LABS: Basophils # (A) 0.1 k/uL (0-0.2); Basophils % (A) 1 %; Eosinophils # (A) 0.3 k/uL (0-0.7); Eosinophils % (A) 4 %; HCT 37.1 % (39.0-53.0); HGB 11.8 gm/dL (13.0-17.5); Lymphocytes # (A) 2.5 k/uL (1.0-4.8); Lymphocytes % (A) 33 %; MCH 29.6 pg (25.0-35.0); MCHC 31.7 g/dL (31.0-37.0); MCV 93.4 fL (80.0-100.0); Mean Platelet Volume 7.1; Monocytes # (A) 0.5 k/uL (0-1.0); Monocytes % (A) 6 %; Neutrophils # (A) 4.2 k/uL (1.3-7.7); Neutrophils % (A) 55 %; Platelet Count 216 k/uL (150-450); RBC 3.98 m/uL (4.30-5.90); RDW 15.1 % (11.5-15.5); WBC 7.7 k/uL (3.8-10.6)
[2019-04-11 08:41] LABS: African American GFR (CKD) >90 (>60 ml/min/1.73 sqM); Anion Gap 5 mmol/L; Blood Urea Nitrogen 8 mg/dL (9-20); Calcium 8.9 mg/dL (8.4-10.2); Carbon Dioxide 29 mmol/L (22-30); Chloride 107 mmol/L (98-107); Glucose 110 mg/dL (74-99); Non-African American GFR(CKD) 82 (>60 ml/min/1.73 sqM); Potassium 4.1 mmol/L (3.5-5.1); Sodium 141 mmol/L (137-145)
[2019-04-11] MEDS: HYDROcodone/APAP 5-325MG 1 EACH TAB PO PRN (09:55)
[2019-04-11 12:02] LABS: Glucose,Whole Blood 100 mg/dL (75-99)
[2019-04-11 16:59] LABS: Glucose,Whole Blood 101 mg/dL (75-99)
--- NOTE | 2019-04-11 17:41 | PN ---
PROGRESS NOTE DATE OF SERVICE: 04/11/2019 This 69-year-old gentleman was admitted with acute cellulitis and pain is being closely monitored at this time. No chest pain. No palpitations. No fever. Infectious Disease following the patient closely. The patient is on IV antibiotics. PHYSICAL EXAM: Alert and oriented x3. Pulse 79, blood pressure 150/70, respiration 20, temperature 97.6, pulse ox 94% on room air. HEENT are conjunctivae normal. Oral mucosa moist. NECK is no jugular venous distention. No carotid bruit. No lymph node enlargement. Cardiovascular system: S1, S2 muffled. RESPIRATORY: Breath sounds diminished in the bases. Scattered rhonchi. ABDOMEN: Soft, nontender. LEGS: Significant pain and swelling and infection of the left leg all the present from the groin cellulitis. Significantly Eloise intertrigo also present. Neurology unchanged. LABORATORY DATA: WBC 7.2, hemoglobin 11.8, glucose noted. ASSESSMENT: 1. Severe cellulitis with severe pain of the left leg with failure of outpatient treatment. 2. Possible Eloise intertrigo. 3. Cerebrovascular accident/transient ischemic attack with history of left-sided residual weakness with residual weakness and paralysis. 4. Diabetes type 2. 5. Hypertension. 6. Hyperlipidemia. 7. Gait dysfunction. 8. History of myocardial infarction. 9. History of coronary artery disease, coronary artery bypass grafting. 10.History of orthopedic surgery. 11.History of aneurysm repair. 12.History of nicotine dependence. 13.Obesity with body mass index of 34.4. RECOMMENDATIONS AND DISCUSSION: Recommend to continue current medications, management and symptomatic treatment. Continue with IV antibiotics. PT/OT evaluation. The patient would like to return home at this time. Further recommendations to follow. MMODL / IJN: [id number] / LAVON
[2019-04-11 21:01] LABS: Glucose,Whole Blood 99 mg/dL (75-99)
[2019-04-12] MEDS: SODIUM CHLORIDE 0.9% 1,000 ML IV SCH (04:51)
[2019-04-12 07:24] LABS: Glucose,Whole Blood 95 mg/dL (75-99)
[2019-04-12] MEDS: INSULIN ASPART (NovoLOG) 100 UNIT/ML VIAL SQ SCH ×4 (08:16→20:36)
[2019-04-12] MEDS: ATORVASTATIN 20 MG TAB PO SCH (08:18)
[2019-04-12] MEDS: PANTOPRAZOLE 40 MG TABLET PO SCH (08:18)
[2019-04-12] MEDS: ISOSORBIDE MONONITRATE ER 30 MG TAB.ER.24H PO SCH (08:18)
[2019-04-12] MEDS: LISINOPRIL 10 MG TAB PO SCH (08:18)
[2019-04-12] MEDS: CLOPIDOGREL 75 MG TAB PO SCH (08:18)
[2019-04-12] MEDS: INSULIN DETEMIR (LEVEMIR) 100 UNIT/ML SYR SQ SCH (08:18)
[2019-04-12] MEDS: VENLAFAXINE HCL ER 37.5 MG CAP PO SCH (08:18)
[2019-04-12] MEDS: GABAPENTIN 300 MG CAP PO SCH (08:19)
[2019-04-12] MEDS: HEPARIN SODIUM,PORCINE 5,000 UNIT/ML 1 ML VIAL SQ SCH ×2 (08:19→20:37)
[2019-04-12] MEDS: ATENOLOL 25 MG TAB PO SCH (08:19)
[2019-04-12] MEDS: FLUCONAZOLE 100 MG TAB PO SCH (08:19)
[2019-04-12] MEDS: PIPERACILLIN-TAZOBACTAM 3.375 GM in SODIUM CHLORIDE 0.9% 100 ML IVPB SCH ×3 (08:20→23:52)
[2019-04-12] MEDS: ASPIRIN 81 MG PO SCH (08:20)
[2019-04-12] MEDS: MULTIVITAMINS, THERA 1 EACH TAB PO SCH (08:20)
[2019-04-12 08:22] LABS: Basophils # (A) 0.1 k/uL (0-0.2); Basophils % (A) 1 %; Eosinophils # (A) 0.4 k/uL (0-0.7); Eosinophils % (A) 6 %; HCT 38.6 % (39.0-53.0); HGB 12.1 gm/dL (13.0-17.5); Lymphocytes # (A) 2.7 k/uL (1.0-4.8); Lymphocytes % (A) 39 %; MCH 29.1 pg (25.0-35.0); MCHC 31.3 g/dL (31.0-37.0); MCV 93.2 fL (80.0-100.0); Monocytes # (A) 0.4 k/uL (0-1.0); Monocytes % (A) 6 %; Neutrophils # (A) 3.2 k/uL (1.3-7.7); Neutrophils % (A) 47 %; Platelet Count 247 k/uL (150-450); RBC 4.14 m/uL (4.30-5.90); RDW 15.3 % (11.5-15.5); WBC 6.8 k/uL (3.8-10.6)
[2019-04-12 08:33] LABS: Calcium 9.4 mg/dL (8.4-10.2); Potassium 4.1 mmol/L (3.5-5.1)
[2019-04-12 11:59] LABS: Glucose,Whole Blood 93 mg/dL (75-99)
[2019-04-12] MEDS ORDERED: VANCOMYCIN IV PER PHARMACY 1 EACH MISC MISCELLANE PRN (13:07)
[2019-04-12] MEDS ORDERED: SODIUM CHLORIDE 0.9% IVPB ONE (13:07)
[2019-04-12] MEDS ORDERED: VANCOMYCIN IVPB ONE (13:07)
[2019-04-12] MEDS ORDERED: VANCOMYCIN 2,000 MG in SODIUM CHLORIDE 0.9% 500 ML 500 ML IVPB ONE (14:00)
[2019-04-12 17:30] LABS: Glucose,Whole Blood 101 mg/dL (75-99)
--- NOTE | 2019-04-12 19:54 | PN ---
PROGRESS NOTE DATE OF SERVICE: 04/12/2019 This 69-year-old gentleman admitted with severe cellulitis also growing MRSA and Pseudomonas aeruginosa from the wound. The patient was also seen by Infectious Disease. Patient is on broad-spectrum IV antibiotics, Zosyn and vancomycin have been initiated. No chest pain. No palpitations. No fever. EXAM: Alert and oriented x3. Pulse 55, blood pressure 160/81, respiration 18, temperature 97.8, pulse ox 98% on room air. HEENT: Conjunctivae normal. Oral mucosa moist. NECK: No jugular venous distention. No lymph node enlargement. CARDIOVASCULAR: S1, S2. RESPIRATORY: Diminished breath sounds at the bases. Scattered rhonchi, no crackles. ABDOMEN: Soft, nontender. LEGS: Significant swelling and erythema of the left leg present. NERVOUS SYSTEM: No focal deficits. LABS: WBC 6.2, hemoglobin 12.1. ASSESSMENT: 1. Severe cellulitis with severe pain of the left leg with failure of outpatient treatment. 2. Possible Eloise intertrigo. 3. Cerebrovascular accident, transient ischemic attack with history of left-sided weakness with residual weakness and paralysis. 4. Diabetes mellitus type 2. 5. Gait dysfunction. 6. Hypertension. 7. Hyperlipidemia. 8. History of myocardial infarction. 9. History of coronary artery disease, coronary artery bypass graft. 10.History of orthopedic surgery. 11.History of aneurysm repair. 12.History of nicotine dependence. 13.Obesity with body mass index of 34.4. RECOMMENDATIONS AND DISCUSSION: Recommend to continue current medications, continue to monitor, continue symptomatic treatment. At this time I would recommend broad-spectrum IV antibiotics and continue to monitor. DVT prophylaxis. Closely follow with Infectious Disease. Guarded prognosis. Further recommendations to follow. MMODL / IJN: [id number] /
[2019-04-12 20:33] LABS: Glucose,Whole Blood 94 mg/dL (75-99)
[2019-04-12] MEDS: HYDROcodone/APAP 5-325MG 1 EACH TAB PO PRN (20:43)
[2019-04-12] MEDS: MELATONIN 5 MG TABLET PO PRN (20:45)
[2019-04-12] MEDS: VANCOMYCIN 1,500 MG in SODIUM CHLORIDE 0.9% 250 ML IVPB SCH (23:40)
[2019-04-13] MEDS: SODIUM CHLORIDE 0.9% 1,000 ML IV SCH (05:45)
[2019-04-13 07:30] LABS: Glucose,Whole Blood 126 mg/dL (75-99)
[2019-04-13] MEDS: PIPERACILLIN-TAZOBACTAM 3.375 GM in SODIUM CHLORIDE 0.9% 100 ML IVPB SCH ×2 (07:46→16:21)
[2019-04-13] MEDS: INSULIN DETEMIR (LEVEMIR) 100 UNIT/ML SYR SQ SCH (07:46)
[2019-04-13] MEDS: ISOSORBIDE MONONITRATE ER 30 MG TAB.ER.24H PO SCH (07:47)
[2019-04-13] MEDS: FLUCONAZOLE 100 MG TAB PO SCH (07:47)
[2019-04-13] MEDS: VENLAFAXINE HCL ER 37.5 MG CAP PO SCH (07:47)
[2019-04-13] MEDS: ASPIRIN 81 MG PO SCH (07:47)
[2019-04-13] MEDS: GABAPENTIN 300 MG CAP PO SCH (07:47)
[2019-04-13] MEDS: ATORVASTATIN 20 MG TAB PO SCH (07:47)
[2019-04-13] MEDS: HEPARIN SODIUM,PORCINE 5,000 UNIT/ML 1 ML VIAL SQ SCH ×2 (07:48→21:44)
[2019-04-13] MEDS: PANTOPRAZOLE 40 MG TABLET PO SCH (07:48)
[2019-04-13] MEDS: ATENOLOL 25 MG TAB PO SCH (07:48)
[2019-04-13] MEDS: MULTIVITAMINS, THERA 1 EACH TAB PO SCH (07:48)
[2019-04-13] MEDS: LISINOPRIL 10 MG TAB PO SCH (07:48)
[2019-04-13] MEDS: INSULIN ASPART (NovoLOG) 100 UNIT/ML VIAL SQ SCH ×4 (08:03→21:20)
[2019-04-13] MEDS: CLOPIDOGREL 75 MG TAB PO SCH (08:04)
[2019-04-13] MEDS: VANCOMYCIN 1,500 MG in SODIUM CHLORIDE 0.9% 250 ML IVPB SCH (11:32)
[2019-04-13 12:43] LABS: Glucose,Whole Blood 68 mg/dL (75-99)
[2019-04-13 13:08] LABS: Glucose,Whole Blood 77 mg/dL (75-99)
[2019-04-13 17:39] LABS: Glucose,Whole Blood 117 mg/dL (75-99)
--- NOTE | 2019-04-13 19:43 | PN ---
PROGRESS NOTE . DATE OF SERVICE: 04/13/2019 This 69-year-old gentleman who was admitted with severe cellulitis and severe pain also had MRSA grown from the culture. Patient started on IV vancomycin. No chest pain. No palpitations. No fever. EXAM: Alert and oriented times three. Pulse 59, blood pressure 140/72, respirations 16, temperature 97.9, pulse ox 94% on room air. HEENT: Conjunctivae normal. NECK: No jugular venous distention. CARDIOVASCULAR: S1, S2 muffled. RESPIRATIONS: Breath sounds diminished in the bases. A few scattered rhonchi. No crackles. ABDOMEN is soft, nontender. LEGS: Significant swelling in the left leg, which is improving. Eloise intertrigo present. LABS: Accu-Cheks 68 and 77. WBC 6.8, hemoglobin 12.1. ASSESSMENT: 1. Severe cellulitis with severe pain of the left leg with failure of outpatient treatment with MRSA. 2. Possible Eloise intertrigo. 3. Cerebrovascular accident/transient ischemic attack with history of left-sided weakness, residual weakness and paralysis. 4. Diabetes mellitus type 2. 5. Gait dysfunction. 6. Hypertension. 7. Hyperlipidemia. 8. History of myocardial infarction. 9. History of coronary artery disease, coronary artery bypass grafting. 10.History of orthopedic surgery. 11.History of aneurysm repair. 12.History of nicotine dependence. 13.Obesity with body mass index of 34.4. RECOMMENDATIONS AND DISCUSSION: Recommend to continue current medications, symptomatic treatment, management. Continue with vancomycin at this time. Closely follow with Infectious Disease. Continue the rest of medications including Diflucan. Guarded prognosis. Further recommendations to follow. MMODL / IJN: [id number] /
[2019-04-13 21:37] LABS: Glucose,Whole Blood 103 mg/dL (75-99)
[2019-04-13] MEDS: MELATONIN 5 MG TABLET PO PRN (21:44)
[2019-04-14] MEDS: VANCOMYCIN 1,500 MG in SODIUM CHLORIDE 0.9% 250 ML IVPB SCH ×2 (00:03→11:41)
[2019-04-14] MEDS: PIPERACILLIN-TAZOBACTAM 3.375 GM in SODIUM CHLORIDE 0.9% 100 ML IVPB SCH ×2 (00:03→07:32)
[2019-04-14] MEDS: SODIUM CHLORIDE 0.9% 1,000 ML IV SCH (05:53)
[2019-04-14 07:15] VITALS: BP 195/74; PULSE 72; RESP 16; TEMP 97.8
[2019-04-14 07:18] LABS: Glucose,Whole Blood 79 mg/dL (75-99)
[2019-04-14] MEDS: INSULIN ASPART (NovoLOG) 100 UNIT/ML VIAL SQ SCH ×2 (07:18→12:10)
[2019-04-14] MEDS: ISOSORBIDE MONONITRATE ER 30 MG TAB.ER.24H PO SCH (07:29)
[2019-04-14] MEDS: PANTOPRAZOLE 40 MG TABLET PO SCH (07:30)
[2019-04-14] MEDS: HEPARIN SODIUM,PORCINE 5,000 UNIT/ML 1 ML VIAL SQ SCH (07:30)
[2019-04-14] MEDS: ASPIRIN 81 MG PO SCH (07:30)
[2019-04-14] MEDS: CLOPIDOGREL 75 MG TAB PO SCH (07:30)
[2019-04-14] MEDS: FLUCONAZOLE 100 MG TAB PO SCH (07:30)
[2019-04-14] MEDS: ATENOLOL 25 MG TAB PO SCH (07:30)
[2019-04-14] MEDS: ATORVASTATIN 20 MG TAB PO SCH (07:30)
[2019-04-14] MEDS: VENLAFAXINE HCL ER 37.5 MG CAP PO SCH (07:31)
[2019-04-14] MEDS: LISINOPRIL 10 MG TAB PO SCH (07:31)
[2019-04-14] MEDS: INSULIN DETEMIR (LEVEMIR) 100 UNIT/ML SYR SQ SCH (07:31)
[2019-04-14] MEDS: MULTIVITAMINS, THERA 1 EACH TAB PO SCH (07:31)
[2019-04-14] MEDS: GABAPENTIN 300 MG CAP PO SCH (07:32)
[2019-04-14] MEDS ORDERED: VANCOMYCIN TROUGH DUE 1 EACH MISC MISCELLANE ONE (11:00)
[2019-04-14 11:41] LABS: African American GFR (CKD) >90 (>60 ml/min/1.73 sqM); Non-African American GFR(CKD) >90 (>60 ml/min/1.73 sqM)
[2019-04-14 12:09] LABS: Glucose,Whole Blood 77 mg/dL (75-99)
--- NOTE | 2019-04-14 18:11 | P.DS ---
Providers Date of admission: 04/12/19 07:58 Attending physician: Dale Guerrero MD Consults: 04/09/19 19:39 Consult Physician Stat Consulting Provider: Delon Serra Consult Reason/Comments: cellulitis Do you want consulting provider notified?: Yes Primary care physician: [facility] Hospital Course: patient appears to have cellulitis secondary to the intertrigo and fungal infection of the folds of the abdomen and inguinal area patient appears to cellulitis of the both bilateral thigh area wound cultures are positive for MRSA and Pseudomonas although fortunately assisted multiple antibiotics and patient is being discharged on 10 days of Cipro and Bactrim infectious disease evaluated the patient. PHYSICAL EXAMINATION: GENERAL: The patient is alert and oriented x3, not in any acute distress. Well developed, well nourished. HEENT: Pupils are round and equally reacting to light. EOMI. No scleral icterus. No conjunctival pallor. Normocephalic, atraumatic. No pharyngeal erythema. No thyromegaly. CARDIOVASCULAR: S1 and S2 present. No murmurs, rubs, or gallops. PULMONARY: Chest is clear to auscultation, no wheezing or crackles. ABDOMEN: Soft, nontender, nondistended, normoactive bowel sounds. No palpable organomegaly. MUSCULOSKELETAL: No joint swelling or deformity. EXTREMITIES: No cyanosis, clubbing, or pedal edema. NEUROLOGICAL: Gross neurological examination did not reveal any focal deficits. SKIN: fungal intertrigo with cellulitis as mentioned above for the chronic medical problems as physician course please refer to dictation from Dr. Blevins from yesterday Patient Condition at Discharge: Fair Plan - Discharge Summary Discharge Rx Participant: No New Discharge Prescriptions: New Ciprofloxacin HCl [Cipro] 500 mg PO Q12HR #20 tablet Sulfamethox-Tmp 800-160Mg [Bactrim DS 800-160 mg] 1 tab PO Q12HR #20 tab Nystatin 100,000 Unit/gm Powd [Mycostatin Powder] 1 applic TOPICAL BID #30 gm Continue Multivitamins, Thera [Multivitamin (formulary)] 1 tab PO DAILY Insulin Glargine,Hum.rec.anlog [Lantus Solostar] 40 unit SQ DAILY Clopidogrel [Plavix] 75 mg PO DAILY Aspirin EC [Ecotrin Low Dose] 81 mg PO DAILY Melatonin 5 mg PO HS Gabapentin [Neurontin] 300 mg PO DAILY Lisinopril [Prinivil] 10 mg PO DAILY HYDROcodone/APAP 5-325MG [Avera 5-325] 1 tab PO DAILY Atenolol [Tenormin] 12.5 mg PO DAILY ALPRAZolam [Xanax] 0.5 mg PO DAILY PRN PRN Reason: Anxiety Venlafaxine HCl ER [Effexor XR] 37.5 mg PO DAILY Simvastatin [Zocor] 40 mg PO DAILY Isosorbide Mononitrate ER [Imdur] 30 mg PO DAILY Discontinued Hydrochlorothiazide 12.5 mg PO DAILY Discharge Medication List ALPRAZolam [Xanax] 0.5 mg PO DAILY PRN 04/09/19 [History] Aspirin EC [Ecotrin Low Dose] 81 mg PO DAILY 04/09/19 [History] Atenolol [Tenormin] 12.5 mg PO DAILY 04/09/19 [History] Clopidogrel [Plavix] 75 mg PO DAILY 04/09/19 [History] Gabapentin [Neurontin] 300 mg PO DAILY 04/09/19 [History] HYDROcodone/APAP 5-325MG [Avera 5-325] 1 tab PO DAILY 04/09/19 [History] Insulin Glargine,Hum.rec.anlog [Lantus Solostar] 40 unit SQ DAILY 04/09/19 [History] Lisinopril [Prinivil] 10 mg PO DAILY 04/09/19 [History] Melatonin 5 mg PO HS 04/09/19 [History] Multivitamins, Thera [Multivitamin (formulary)] 1 tab PO DAILY 04/09/19 [History] Isosorbide Mononitrate ER [Imdur] 30 mg PO DAILY 04/10/19 [History] Simvastatin [Zocor] 40 mg PO DAILY 04/10/19 [History] Venlafaxine HCl ER [Effexor XR] 37.5 mg PO DAILY 04/10/19 [History] Ciprofloxacin HCl [Cipro] 500 mg PO Q12HR #20 tablet 04/13/19 [Rx] Nystatin 100,000 Unit/gm Powd [Mycostatin Powder] 1 applic TOPICAL BID #30 gm 04/14/19 [Rx] Sulfamethox-Tmp 800-160Mg [Bactrim DS 800-160 mg] 1 tab PO Q12HR #20 tab 04/14/19 [Rx] Follow up Appointment(s[facility] - As [facility]eded [facility]inic [Primary Care Provider] - 04/21/19 11:00 am Patient Instructions/Handouts: MRSA (Methicillin-Resistant Staphylococcus Aureus) (DC), Cellulitis (DC), Skin Yeast Infection (GEN) Discharge Disposition: HOME WITH HOME HEALTH SERVICES
--- NOTE | 2019-04-14 22:55 | P.PN ---
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 He is cared for by family in the home setting. Is having increasing difficulties with the irritation to the skin in the groin as well as onto the left lateral thigh area. It's become painful a to feel poorly and low-grade fever Lorenzo was brought to Hospital further evaluation. He is not a good historian. 04/14/2018 the patient's status is improved. The cellulitis of the groin and genitals is improved. He is more comfortable. He ready for transfer back to home. Objective - Vital Signs Vital signs: Vital Signs Temp 97.8 F 04/14/19 05:35 Pulse 72 04/14/19 05:35 Resp 16 04/14/19 05:35 BP 195/74 04/14/19 05:35 Pulse Ox 96 04/14/19 05:35 Intake & Output 04/14/19 04/14/19 04/15/19 06:59 18:59 06:59 Output Total 1825 1150 Balance -1825 -1150 Output: Urine 1175 1150 Straight 650 Post Void Residual 650 Other: Voiding Method Urinal # Voids 6 # Bowel Movements 4 - Exam Obese 69-year-old male comfortable HEENT: Anicteric conjunctiva are pink and moist nasal mucosa grossly intact without significant lesions, there is no thrush. Neck: The neck is supple without significant lymphadenopathy or thyromegaly. Lungs: Good bilateral air entry without significant crackles or wheezing. There is no significant bronchial sounds. There is no egophony or dullness. Heart: Regular rate and rhythm with an audible S1-S2, no S3 no S4. There is no significant murmur click or rub, PMI was nondisplaced. Abdomen: Positive bowel sounds soft and nontender without palpable masses or organomegaly. There was no guarding or rebound. Extremities: The upper extremities have excellent pulses they are symmetric, no significant petechiae or telangiectasia. No splinter hemorrhages were noted. The lower extremities are free from significant edema. The peripheral pulses were 2+ and symmetric. Neuro: Dense left hemiparesis is able to speak, he is able to self feed. Skin reveals evidence of the dense erythema to the groin and upper thighs and lateral left thigh area. There is some mild erythema also to the base of the scrotum but no significant ulcerations are seen at this time. - Labs CBC & Chem 7: 04/12/19 07:27 04/14/19 11:10 Labs: Microbiology - Last 24 Hours (Table) 04/09/19 17:39 Blood Culture - Preliminary Blood No Growth after 120 hours 04/10/19 04:45 Anaerobic Culture - Final Thigh - Left Laboratory Results WBC 6.8 k/uL (3.8-10.6) 04/12/19 07:27 RBC 4.14 m/uL (4.30-5.90) L 04/12/19 07:27 Hgb 12.1 gm/dL (13.0-17.5) L 04/12/19 07:27 Hct 38.6 % (39.0-53.0) L 04/12/19 07:27 MCV 93.2 fL (80.0-100.0) 04/12/19 07:27 MCH 29.1 pg (25.0-35.0) 04/12/19 07:27 MCHC 31.3 g/dL (31.0-37.0) 04/12/19 07:27 RDW 15.3 % (11.5-15.5) 04/12/19 07:27 Plt Count 247 k/uL (150-450) 04/12/19 07:27 Neutrophils % 47 % 04/12/19 07:27 Lymphocytes % 39 % 04/12/19 07:27 Monocytes % 6 % 04/12/19 07:27 Eosinophils % 6 % 04/12/19 07:27 Basophils % 1 % 04/12/19 07:27 Neutrophils # 3.2 k/uL (1.3-7.7) 04/12/19 07:27 Lymphocytes # 2.7 k/uL (1.0-4.8) 04/12/19 07:27 Monocytes # 0.4 k/uL (0-1.0) 04/12/19 07:27 Eosinophils # 0.4 k/uL (0-0.7) 04/12/19 07:27 Basophils # 0.1 k/uL (0-0.2) 04/12/19 07:27 Hypochromasia Slight 04/10/19 08:04 Sodium 143 mmol/L (137-145) 04/12/19 07:27 Potassium 4.1 mmol/L (3.5-5.1) 04/12/19 07:27 Chloride 107 mmol/L (98-107) 04/12/19 07:27 Carbon Dioxide 29 mmol/L (22-30) 04/12/19 07:27 Anion Gap 7 mmol/L 04/12/19 07:27 BUN 8 mg/dL (9-20) L 04/12/19 07:27 Creatinine 0.80 mg/dL (0.66-1.25) 04/14/19 11:10 Est GFR (CKD-EPI)AfAm >90 (>60 ml/min/1.73 sqM) 04/14/19 11:10 Est GFR (CKD-EPI)NonAf >90 (>60 ml/min/1.73 sqM) 04/14/19 11:10 Glucose 89 mg/dL (74-99) 04/12/19 07:27 POC Glucose (mg/dL) 77 mg/dL (75-99) 04/14/19 12:07 POC Glu Billing Services Manager ID Mariama Bernstein 04/14/19 12:07 Plasma Lactic Acid Deangelo 1.5 mmol/L (0.7-2.0) 04/09/19 18:00 Calcium 9.4 mg/dL (8.4-10.2) 04/12/19 07:27 Magnesium 1.7 mg/dL (1.6-2.3) 04/09/19 17:39 Total Bilirubin 0.7 mg/dL (0.2-1.3) 04/09/19 17:39 AST 24 U/L (17-59) 04/09/19 17:39 ALT 11 U/L (21-72) L 04/09/19 17:39 Alkaline Phosphatase 64 U/L (38-126) 04/09/19 17:39 Total Protein 7.4 g/dL (6.3-8.2) 04/09/19 17:39 Albumin 3.7 g/dL (3.5-5.0) 04/09/19 17:39 Urine Color Yellow 04/09/19 17:42 Urine Appearance Clear (Clear) 04/09/19 17:42 Urine pH 6.5 (5.0-8.0) 04/09/19 17:42 Ur Specific [place] 1.008 (1.001-1.035) 04/09/19 17:42 Urine Protein Negative (Negative) 04/09/19 17:42 Urine Glucose (UA) Negative (Negative) 04/09/19 17:42 Urine Ketones Negative (Negative) 04/09/19 17:42 Urine Blood Negative (Negative) 04/09/19 17:42 Urine Nitrite Negative (Negative) 04/09/19 17:42 Urine Bilirubin Negative (Negative) 04/09/19 17:42 Urine Urobilinogen 2.0 mg/dL (<2.0) 04/09/19 17:42 Ur Leukocyte Esterase Trace (Negative) H 04/09/19 17:42 Urine RBC <1 /hpf (0-5) 04/09/19 17:42 Urine WBC 4 /hpf (0-5) 04/09/19 17:42 Ur Squamous Epith Cells <1 /hpf (0-4) 04/09/19 17:42 Urine Bacteria Few /hpf (None) H 04/09/19 17:42 Urine Mucus Rare /hpf (None) H 04/09/19 17:42 Urine Sperm Rare /hpf (None) 04/09/19 17:42 Vancomycin Trough 20.7 ug/mL 04/14/19 11:10 Assessment and Plan (1) Cellulitis Narrative/Plan: 69-year-old male who has a history of obesity, diabetes, coronary artery disease in the extensive stroke with the left hemiparesis is under the care of his family home setting. He has difficulty with urinary incontinence is now developed evidence of the stability and irritation to the skin in the perineum bilateral thighs and on the left lateral thigh. There are no significant open ulcerations but there is evidence of the significant erythema and Eloise infection of this region. Antibiotic therapy has been initiated with Zosyn and antifungal therapy with fluconazole. Intertrigo is requested for the abdominal fold. And from the cart with thick zinc cream can be utilized to cover all of these areas to allow some healing. Cultures are process will further help direct antibiotic therapy. It is not clear if the plan at this point in time is for the patient to go to rehab for a while to allow some improvement of his status. Assessment of his equipment for home could be helpfu l ensure that he has an air mattress, Roho cushion for his wheelchair and may do well to have a Marlene lift if needed. Enhance glucose control will help with the cutaneous infections. 04/14/2018 the patient is improving and is being readied for discharge to home. Wound cultures are evaluation evidence of the MRSA in the pseudomonas that have been isolated. We'll be able to utilize trimethoprim sulfamethoxazole within ciprofloxacin for the next 10 days to complete the treatment of his cutaneous infection. Topical antifungal powder and barrier cream should be continued to be utilized. Trying to ensure that he is more dry and having less urine soaking will be helpful. Status: Acute Code(s): L03.90 - CELLULITIS, UNSPECIFIED SNOMED Code(s): 872057366 (2) Eloise infection Status: Acute Code(s): B37.9 - CANDIDIASIS, UNSPECIFIED SNOMED Code(s): 78839319 (3) Eloise infection of genital region Status: Acute Code(s): B37.49 - OTHER UROGENITAL CANDIDIASIS SNOMED Code(s): 704921821 (4) Hemiparesis affecting left side as late effect of cerebrovascular accident Status: Acute Code(s): I69.354 - HEMIPLGA FOLLOWING CEREBRAL INFRC AFFECTING LEFT NONDOM SIDE SNOMED Code(s): 751370622
[2019-04-15] MEDS ORDERED: VANCOMYCIN 1,500 MG in SODIUM CHLORIDE 0.9% 250 ML IVPB SCH (06:00)
== END 2019-04-14 15:28 | disposition home health service (06) | DRG 603 ==
LOC: EC 15:58 → 4MS4W 19:24 → OBSVTOIN 04-12 07:58 → 4MS4W 04-12 13:55
PROVIDERS: ADMIT Internal Medicine; ATTEND Internal Medicine
DX: L03.314 Cellulitis of groin (principal); I69.354 Hemiplegia and hemiparesis following cerebral infarction affecting left non-dominant side; B37.49 Other urogenital candidiasis; E11.9 Type 2 diabetes mellitus without complications; B95.62 Methicillin resistant Staphylococcus aureus infection as the cause of diseases classified elsewhere; B96.5 Pseudomonas (aeruginosa) (mallei) (pseudomallei) as the cause of diseases classified elsewhere; L03.311 Cellulitis of abdominal wall; L30.4 Erythema intertrigo; R32 Unspecified urinary incontinence; E78.5 Hyperlipidemia, unspecified; I10 Essential (primary) hypertension; R40.2362 Coma scale, best motor response, obeys commands, at arrival to emergency department; R40.2142 Coma scale, eyes open, spontaneous, at arrival to emergency department; R40.2252 Coma scale, best verbal response, oriented, at arrival to emergency department; I25.10 Atherosclerotic heart disease of native coronary artery without angina pectoris; I25.2 Old myocardial infarction; E66.9 Obesity, unspecified; Z68.35 Body mass index [BMI] 35.0-35.9, adult; Z79.82 Long term (current) use of aspirin; Z79.02 Long term (current) use of antithrombotics/antiplatelets; Z79.4 Long term (current) use of insulin; Z79.899 Other long term (current) drug therapy; Z90.49 Acquired absence of other specified parts of digestive tract; Z95.1 Presence of aortocoronary bypass graft; Z98.890 Other specified postprocedural states; Z87.891 Personal history of nicotine dependence; Z86.79 Personal history of other diseases of the circulatory system
CPT/HCPCS: 36415; 80048; 80053; 80202; 81001; 82565; 83605; 83735; 85025; 87040; 87070; 87075; 87077; 87186; 87205; 93005; 96361; 96374; 99285

== ENCOUNTER 2019-05-19 14:20 | Emergency (ER) | payer OTHER, MEDICARE, BC ==
[2019-05-19 14:38] VITALS: BP 118/72; PULSE 74; RESP 16; TEMP 99
--- NOTE | 2019-05-19 15:52 | ED ---
Skin/Abscess/FB HPI - General Stated complaint: LEFT THIGH WOUND CARE Time Seen by Provider: 05/19/19 14:31 Source: patient Mode of arrival: EMS Limitations: physical limitation - History of Present Illness Initial comments: Patient is a 69-year-old male presenting to the emergency department via EMS for a small boned on his left lateral thigh. Patient is also stating his rash and his skin folds is also increasing. Patient is worried he might be developing cellulitis. Patient was recently hospitalized approximately one month ago for MRSA infection. Patient denies any fever, chills, nausea, vomiting. Patient states he accidentally hit the side of his wheelchair and has a small wound to the left lateral thigh. Patient has history of stroke with residual left-sided paralysis and weakness. Patient has no other complaints at this time. Upon arrival to ER, vital signs are stable. - Related Data Home Medications Medication Instructions Recorded Confirmed ALPRAZolam [Xanax] 0.5 mg PO DAILY PRN 04/09/19 04/09/19 Aspirin EC [Ecotrin Low Dose] 81 mg PO DAILY 04/09/19 04/09/19 Atenolol [Tenormin] 12.5 mg PO DAILY 04/09/19 04/09/19 Clopidogrel [Plavix] 75 mg PO DAILY 04/09/19 04/09/19 Gabapentin [Neurontin] 300 mg PO DAILY 04/09/19 04/09/19 HYDROcodone/APAP 5-325MG [Busy 1 tab PO DAILY 04/09/19 04/09/19 5-325] Insulin Glargine,Hum.rec.anlog 40 unit SQ DAILY 04/09/19 04/09/19 [Lantus Solostar] Lisinopril [Prinivil] 10 mg PO DAILY 04/09/19 04/09/19 Melatonin 5 mg PO HS 04/09/19 04/09/19 Multivitamins, Thera [Multivitamin 1 tab PO DAILY 04/09/19 04/09/19 (formulary)] Isosorbide Mononitrate ER [Imdur] 30 mg PO DAILY 04/10/19 04/10/19 Simvastatin [Zocor] 40 mg PO DAILY 04/10/19 04/10/19 Venlafaxine HCl ER [Effexor XR] 37.5 mg PO DAILY 04/10/19 04/10/19 Previous Rx's Medication Instructions Recorded Ciprofloxacin HCl [Cipro] 500 mg PO Q12HR #20 tablet 04/13/19 Nystatin 100,000 Unit/gm Powd 1 applic TOPICAL BID #30 gm 04/14/19 [Mycostatin Powder] Sulfamethox-Tmp 800-160Mg [Bactrim 1 tab PO Q12HR #20 tab 04/14/19 DS 800-160 mg] Fluconazole [Diflucan] 100 mg PO DAILY 7 Days #7 tablet 05/19/19 Allergies Allergy/AdvReac Type Severity Reaction Status Date / Time No Known Allergies Allergy Verified 05/19/19 14:38 Review of Systems ROS Statement: Those systems with pertinent positive or pertinent negative responses have been documented in the HPI. ROS Other: All systems not noted in ROS Statement are negative. Past Medical History Past Medical History: CVA/TIA, Diabetes Mellitus, Hyperlipidemia, Hypertension, Myocardial Infarction ([place]) Additional Past Medical History / Comment(s): CVA July 2018. Last Myocardial Infarction Date:: 1998 History of Any Multi-Drug Resistant Organisms: MRSA Date of last positivie culture/infection: 04/10/19 MDRO Source:: left thigh Past Surgical History: Appendectomy, Cholecystectomy, Coronary Bypass/CABG, Orthopedic Surgery Additional Past Surgical History / Comment(s): ANEURYSM REPAIR Past Psychological History: No Psychological Hx Reported Smoking Status: Former smoker Past Alcohol Use History: None Reported Past Drug Use History: None Reported General Exam - General Exam Comments Initial Comments: GENERAL: Well-appearing, well-nourished and in no acute distress. HEAD: Atraumatic, normocephalic. EYES: Pupils equal round and reactive to light, extraocular movements intact, sclera anicteric, conjunctiva are normal. ENT: TMs normal, nares patent, oropharynx clear without exudates. Moist mucous membranes. NECK: Normal range of motion, supple without lymphadenopathy or JVD. LUNGS: Breath sounds clear to auscultation bilaterally and equal. No wheezes rales or rhonchi. HEART: Regular rate and rhythm without murmurs, rubs or gallops. ABDOMEN: Soft, nontender, normoactive bowel sounds. No guarding, no rebound. No masses appreciated. : Deferred EXTREMITIES: Patient has residual left-sided paralysis and weakness from stroke a few years ago. no pitting or edema. No clubbing or cyanosis. NEUROLOGICAL: Cranial nerves II through XII grossly intact. Normal speech, PSYCH: Normal mood, normal affect. SKIN: Warm, Dry, normal turgor. Patient has a small superficial abrasion to the left lateral thigh. There is no signs of erythema, swelling, drainage at this time. No signs cellulitis. Patient also has a rash in the skin folds of his groin area, underneath his abdomen, around his genitals and underneath his armpits that is erythematous, scaly, patchy in nature. Consistent with intertr igo candisias, Limitations: physical limitation Course Vital Signs 05/19/19 14:35 Temperature 99.0 F Pulse Rate 74 Respiratory 16 Rate Blood Pressure 118/72 O2 Sat by Pulse 94 L Oximetry Medical Decision Making - Medical Decision Making Patient is a 69-year-old male presenting with a small superficial abrasion to his left lateral thigh as well as an increasing rash in the folds of his abdomen, groin, gentle chills, bilateral armpits. Patient was concerned this is was developing cellulitis again. Patient was hospitalized approximately one month ago for cellulitis that was test positive for MRSA. Patient has history of stroke with residual left-sided weakness and paralysis. On exam patient's skin rash is consistent with intertrigo candidasis. Patient will be started on Diflucan once a day for 7 days and will follow-up with PCP for further m anagement or treatment. Patient's wound on the left lateral leg is superficial and showing no signs of infection. Topical antibiotic was applied along with a Band-Aid. Patient is stable for discharge at this time and he is in agreement with this plan of care. Return parameters were discussed with the patient he verbalizes understanding. Case discussed with Dr. Zavala. Disposition Clinical Impression: Candidal intertrigo Disposition: HOME SELF-CARE Condition: Stable Instructions (If sedation given, give patient instructions): Skin Yeast Infection (ED) Additional Instructions: Please return to the Emergency Department if symptoms worsen or any other concerns. Follow-up with PCP after one week if no improvement. Prescriptions: Fluconazole [Diflucan] 100 mg PO DAILY 7 Days #7 tablet Is patient prescribed a controlled substance at d/c from ED?: No Referrals: [facility],Clinic [Primary Care Provider] - 1-2 days
== END 2019-05-19 16:12 | disposition home or self-care (01) ==
LOC: EC 14:20
DX: L30.4 Erythema intertrigo (principal); I69.364 Other paralytic syndrome following cerebral infarction affecting left non-dominant side; G82.20 Paraplegia, unspecified; I10 Essential (primary) hypertension; E11.9 Type 2 diabetes mellitus without complications; E78.5 Hyperlipidemia, unspecified; I25.2 Old myocardial infarction; Z79.4 Long term (current) use of insulin; Z79.82 Long term (current) use of aspirin; Z79.02 Long term (current) use of antithrombotics/antiplatelets; Z79.899 Other long term (current) drug therapy; Z95.1 Presence of aortocoronary bypass graft
CPT/HCPCS: 99283

== ENCOUNTER 2019-06-02 14:28 | Observation (INO) | payer MEDICARE, BC ==
[2019-06-02] MEDS ORDERED: SODIUM CHLORIDE 0.9% 500 ML 500 ML IV STA (15:16)
--- NOTE | 2019-06-02 15:24 | ED ---
General Adult HPI - General Chief complaint: Weakness Stated complaint: Slurred speach Time Seen by Provider: 06/02/19 14:35 Source: patient, family, EMS, RN notes reviewed Mode of arrival: EMS Limitations: no limitations - History of Present Illness Initial comments: This is a 69-year-old male presents emergency department because he states his and caregiver sentiment because he had slurred speech. Patient states he doesn't think his speech is slurred at all. Patient states he gets tired and then he talks funny because he is exhausted. Patient does state he has a history of stroke. He states he doesn't believe he is having any strokelike symptoms today. Patient's voice is clear to me at this time. Patient denies any headache patient denies any numbness or new weakness. Patient denies any chest pain palpitations difficulty breathing first breath per patient denies abdominal pain patient denies any nausea vomiting or diarrhea. Patient denies any recent fever chills or cough recently. - Related Data Home Medications Medication Instructions Recorded Confirmed ALPRAZolam [Xanax] 0.5 mg PO DAILY PRN 04/09/19 06/02/19 Aspirin EC [Ecotrin Low Dose] 81 mg PO DAILY 04/09/19 06/02/19 Atenolol [Tenormin] 12.5 mg PO DAILY 04/09/19 06/02/19 Clopidogrel [Plavix] 75 mg PO DAILY 04/09/19 06/02/19 Gabapentin [Neurontin] 300 mg PO DAILY 04/09/19 06/02/19 HYDROcodone/APAP 5-325MG [Venus 1 tab PO DAILY 04/09/19 06/02/19 5-325] Insulin Glargine,Hum.rec.anlog 40 unit SQ DAILY 04/09/19 06/02/19 [Lantus Solostar] Lisinopril [Prinivil] 10 mg PO DAILY 04/09/19 06/02/19 Melatonin 5 mg PO HS 04/09/19 06/02/19 Isosorbide Mononitrate ER [Imdur] 30 mg PO DAILY 04/10/19 06/02/19 Simvastatin [Zocor] 40 mg PO DAILY 04/10/19 06/02/19 Venlafaxine HCl ER [Effexor XR] 37.5 mg PO DAILY 04/10/19 06/02/19 Nystatin 100,000 Unit/gm Powd 1 applic TOPICAL BID 06/02/19 06/02/19 [Mycostatin Powder] Previous Rx's Medication Instructions Recorded Fluconazole [Diflucan] 100 mg PO DAILY 7 Days #7 tablet 05/19/19 Allergies Allergy/AdvReac Type Severity Reaction Status Date / Time No Known Allergies Allergy Verified 06/02/19 15:06 Review of Systems ROS Statement: Those systems with pertinent positive or pertinent negative responses have been documented in the HPI. ROS Other: All systems not noted in ROS Statement are negative. Past Medical History Past Medical History: CVA/TIA, Diabetes Mellitus, Hyperlipidemia, Hypertension, Myocardial Infarction ([place]) Additional Past Medical History / Comment(s): CVA July 2018. Last Myocardial Infarction Date:: 1998 History of Any Multi-Drug Resistant Organisms: MRSA Date of last positivie culture/infection: 04/10/19 MDRO Source:: left thigh Past Surgical History: Appendectomy, Cholecystectomy, Coronary Bypass/CABG, Orthopedic Surgery Additional Past Surgical History / Comment(s): ANEURYSM REPAIR Past Psychological History: No Psychological Hx Reported Smoking Status: Former smoker Past Alcohol Use History: None Reported Past Drug Use History: None Reported General Exam - General Exam Comments Initial Comments: GENERAL: Patient is well-developed and well-nourished. Patient is nontoxic and well- hydrated and is in mild distress. ENT: Neck is soft and supple. No significant lymphadenopathy is noted. Oropharynx is clear. Moist mucous membranes. Neck has full range of motion without eliciting any pain. EYES: The sclera were anicteric and conjunctiva were pink and moist. Extraocular movements were intact and pupils were equal round and reactive to light. Eyelids were unremarkable. PULMONARY: Unlabored respirations. Good breath sounds bilaterally. No audible rales rhonchi or wheezing was noted. CARDIOVASCULAR: There is a regular rate and rhythm without any murmurs gallops or rubs. ABDOMEN: Soft and nontender with normal bowel sounds. No palpable organomegaly was noted. There is no palpable pulsatile mass. SKIN: Skin is clear with no lesions or rashes and otherwise unremarkable. NEUROLOGIC: Patient is alert and oriented x3. Cranial nerves II through XII are grossly intact. Patient is unable to move the left arm at all but he states this is chronic. Patient has some ability to lift the left leg but not as much as the right he states again this is chronic and there is no change. MUSCULOSKELETAL: Normal extremities with adequate strength and full range of motion. LYMPHATICS: No significant lymphadenopathy is noted PSYCHIATRIC: Normal psychiatric evaluation. Limitations: no limitations Course Vital Signs 06/02/19 14:36 Temperature 97.7 F Pulse Rate 72 Respiratory 16 Rate Blood Pressure 107/62 O2 Sat by Pulse 96 Oximetry Medical Decision Making - Medical Decision Making EKG shows normal sinus rhythm at 73 bpm OR interval is 204 QRSs 108 QT interval 390 QTC is 438. Patient's EKG shows no ST segment elevation or depression or T wave abnormalities are noted. When the showed up she was stating that he has been incontinent of urine even though he has a condom catheter on he states to her that he doesn't even know is going. Patient also has been more tired and sleepy and she thinks his speech is been slurred those episodes. Unable to assess the ataxia because the patient doesn't walks because of a prior stroke. Computed tomography scan shows possible normal pressure hydrocephalus. I spoke with the [facility] meniscuspractitioner Kourtney and she accepted the admission I admitted the patient I consulted neurology. - Lab Data Result diagrams: 06/02/19 15:35 06/02/19 15:35 Lab Results 06/02/19 06/02/19 06/02/19 Range/Units 15:35 15:35 15:35 WBC 7.8 (3.8-10.6) k/uL RBC 4.49 (4.30-5.90) m/uL Hgb 13.5 (13.0-17.5) gm/dL Hct 40.8 (39.0-53.0) % MCV 90.8 (80.0-100.0) fL MCH 30.1 (25.0-35.0) pg MCHC 33.2 (31.0-37.0) g/dL RDW 13.2 (11.5-15.5) % Plt Count 288 (150-450) k/uL Neutrophils % 54 % Lymphocytes % 33 % Monocytes % 7 % Eosinophils % 3 % Basophils % 1 % Neutrophils # 4.2 (1.3-7.7) k/uL Lymphocytes # 2.6 (1.0-4.8) k/uL Monocytes # 0.5 (0-1.0) k/uL Eosinophils # 0.3 (0-0.7) k/uL Basophils # 0.1 (0-0.2) k/uL PT (9.0-12.0) sec INR (<1.2) APTT (22.0-30.0) sec Sodium 137 (137-145) mmol/L Potassium 4.5 (3.5-5.1) mmol/L Chloride 98 (98-107) mmol/L Carbon Dioxide 29 (22-30) mmol/L Anion Gap 10 mmol/L BUN 10 (9-20) mg/dL Creatinine 0.81 (0.66-1.25) mg/dL Est GFR (CKD-EPI)AfAm >90 (>60 ml/min/1.73 sqM) Est GFR (CKD-EPI)NonAf 89 (>60 ml/min/1.73 sqM) Glucose 166 H (74-99) mg/dL Plasma Lactic Acid Deangelo 2.0 (0.7-2.0) mmol/L Calcium 9.8 (8.4-10.2) mg/dL Magnesium 1.9 (1.6-2.3) mg/dL Total Bilirubin 0.6 (0.2-1.3) mg/dL AST 22 (17-59) U/L ALT 17 L (21-72) U/L Alkaline Phosphatase 75 (38-126) U/L Troponin I (0.000-0.034) ng/mL Total Protein 7.8 (6.3-8.2) g/dL Albumin 3.9 (3.5-5.0) g/dL 06/02/19 06/02/19 Range/Units 15:35 15:35 WBC (3.8-10.6) k/uL RBC (4.30-5.90) m/uL Hgb (13.0-17.5) gm/dL Hct (39.0-53.0) % MCV (80.0-100.0) fL MCH (25.0-35.0) pg MCHC (31.0-37.0) g/dL RDW (11.5-15.5) % Plt Count (150-450) k/uL Neutrophils % % Lymphocytes % % Monocytes % % Eosinophils % % Basophils % % Neutrophils # (1.3-7.7) k/uL Lymphocytes # (1.0-4.8) k/uL Monocytes # (0-1.0) k/uL Eosinophils # (0-0.7) k/uL Basophils # (0-0.2) k/uL PT 10.3 (9.0-12.0) sec INR 1.0 (<1.2) APTT 25.0 (22.0-30.0) sec Sodium (137-145) mmol/L Potassium (3.5-5.1) mmol/L Chloride (98-107) mmol/L Carbon Dioxide (22-30) mmol/L Anion Gap mmol/L BUN (9-20) mg/dL Creatinine (0.66-1.25) mg/dL Est GFR (CKD-EPI)AfAm (>60 ml/min/1.73 sqM) Est GFR (CKD-EPI)NonAf (>60 ml/min/1.73 sqM) Glucose (74-99) mg/dL Plasma Lactic Acid Deangelo (0.7-2.0) mmol/L Calcium (8.4-10.2) mg/dL Magnesium (1.6-2.3) mg/dL Total Bilirubin (0.2-1.3) mg/dL AST (17-59) U/L ALT (21-72) U/L Alkaline Phosphatase (38-126) U/L Troponin I <0.012 (0.000-0.034) ng/mL Total Protein (6.3-8.2) g/dL Albumin (3.5-5.0) g/dL Disposition Clinical Impression: Normal pressure hydrocephalus, Altered mental status Disposition: ADMITTED IP TO THIS HOSP Referrals: [facility],Clinic [Primary Care Provider] - 1-2 days Time of Disposition: 17:58
[2019-06-02 15:58] LABS: Basophils # (A) 0.1 k/uL (0-0.2); Basophils % (A) 1 %; Eosinophils # (A) 0.3 k/uL (0-0.7); Eosinophils % (A) 3 %; HCT 40.8 % (39.0-53.0); HGB 13.5 gm/dL (13.0-17.5); Lymphocytes # (A) 2.6 k/uL (1.0-4.8); Lymphocytes % (A) 33 %; MCH 30.1 pg (25.0-35.0); MCHC 33.2 g/dL (31.0-37.0); MCV 90.8 fL (80.0-100.0); Mean Platelet Volume 6.4; Monocytes # (A) 0.5 k/uL (0-1.0); Monocytes % (A) 7 %; Neutrophils # (A) 4.2 k/uL (1.3-7.7); Neutrophils % (A) 54 %; Platelet Count 288 k/uL (150-450); RBC 4.49 m/uL (4.30-5.90); RDW 13.2 % (11.5-15.5); WBC 7.8 k/uL (3.8-10.6)
[2019-06-02 16:05] LABS: Prothrombin Time 10.3 sec (9.0-12.0)
--- NOTE | 2019-06-02 16:06 | XR ---
EXAMINATION TYPE: XR chest 2V DATE OF EXAM: 06/02/2019 COMPARISON: None INDICATION: Weakness, slurred speech TECHNIQUE: Frontal and lateral views of the chest are obtained. FINDINGS: The heart size is normal. The pulmonary vasculature is normal. The lungs are clear. Sternotomy wires are present from prior CABG. IMPRESSION: 1. No acute pulmonary process.
[2019-06-02 16:10] LABS: ALT 17 U/L (21-72); AST 22 U/L (17-59); African American GFR (CKD) >90 (>60 ml/min/1.73 sqM); Albumin 3.9 g/dL (3.5-5.0); Alkaline Phosphatase 75 U/L (38-126); Anion Gap 10 mmol/L; Blood Urea Nitrogen 10 mg/dL (9-20); Calcium 9.8 mg/dL (8.4-10.2); Carbon Dioxide 29 mmol/L (22-30); Chloride 98 mmol/L (98-107); Glucose 166 mg/dL (74-99); Magnesium 1.9 mg/dL (1.6-2.3); Potassium 4.5 mmol/L (3.5-5.1); Sodium 137 mmol/L (137-145); Total Bilirubin 0.6 mg/dL (0.2-1.3); Total Protein 7.8 g/dL (6.3-8.2)
--- NOTE | 2019-06-02 16:19 | CT ---
EXAMINATION TYPE: CT brain wo con DATE OF EXAM: 06/02/2019 COMPARISON: None HISTORY: weakness CT DLP: 1152.[address] of the brain was performed. The ventricles, basal cisterns and sulci overlying the cerebral convexities demonstrate to severe enl argement. Right or central component raising the possibility of normal pressure hydrocephalus. There is no evidence for intracranial hemorrhage or sulcal effacement. There is decreased attenuation about the periventricular white matter and deep white matter of both c erebral hemispheres, compatible with chronic small vessel ischemia. Differential diagnosis does inclu de demyelination. No mass effects are seen.No midline shift. Osseous calvarium is intact. If symptoms persist consider MRI. IMPRESSION: 1. Age related atrophic and chronic small vessel ischemic change without acute intracranial process s een at this time. Correlate for normal pressure hydrocephalus.
[2019-06-02] MEDS ORDERED: SODIUM CHLORIDE 0.9% 1,000 ML IV ONE (17:58)
[2019-06-02 18:07] LABS: Appearance,Urine Clear (Clear); Bilirubin,Urine Negative (Negative); Blood,Urine Negative (Negative); Color,Urine Yellow; Glucose,Urine (UA) Negative (Negative); Hyaline Casts,Urine 12 /lpf (0-2); Ketones,Urine Negative (Negative); Leukocyte Esterase,Urine Moderate (Negative); Mucus,Urine Rare /hpf; Nitrite,Urine Negative (Negative); Protein,Urine Negative (Negative); Sperm,Urine Rare /hpf; Squamous Epithelial Cell,Urine 1 /hpf (0-4); Urobilinogen,Urine <2.0 mg/dL (<2.0); WBC,Urine 14 /hpf (0-5)
[2019-06-02 20:54] LABS: Glucose,Whole Blood 160 mg/dL (75-99)
[2019-06-02 21:27] VITALS: BMI 34.4
[2019-06-02] MEDS ORDERED: ACETAMINOPHEN TAB 325 MG TAB PO PRN (23:43)
[2019-06-03] MEDS: NYSTATIN 100,000 UNIT/GM POWD 15 GM TOPICAL SCH ×2 (00:08→07:18)
[2019-06-03 02:29] VITALS: TEMP 97.5
[2019-06-03 07:59] LABS: Glucose,Whole Blood 110 mg/dL (75-99)
[2019-06-03 08:19] VITALS: BP 113/73; PULSE 77; RESP 18
[2019-06-03] MEDS ORDERED: ASPIRIN 81 MG PO SCH (09:00)
[2019-06-03] MEDS ORDERED: ATENOLOL 12.5 MG TAB PO SCH (09:00)
[2019-06-03] MEDS ORDERED: CLOPIDOGREL 75 MG TAB PO SCH (09:00)
[2019-06-03] MEDS ORDERED: INSULIN DETEMIR (LEVEMIR) 100 UNIT/ML SYR SQ SCH (09:00)
[2019-06-03] MEDS ORDERED: ISOSORBIDE MONONITRATE ER 30 MG TAB.ER.24H PO SCH (09:00)
[2019-06-03] MEDS ORDERED: LISINOPRIL 10 MG TAB PO SCH (09:00)
[2019-06-03] MEDS ORDERED: FLUCONAZOLE 100 MG TAB PO SCH (09:00)
[2019-06-03] MEDS ORDERED: ATORVASTATIN 20 MG TAB PO SCH (09:00)
[2019-06-03 11:45] LABS: Glucose,Whole Blood 136 mg/dL (75-99)
--- NOTE | 2019-06-03 12:13 | P.CNNES ---
History of Present Illness Consult date: 06/03/19 Reason for Consult: Concern for stroke Chief complaint: Slurred Speech History of Present Illness: REFERRING PHYSICIAN: Dr. Roel Pelayo HISTORY OF PRESENT ILLNESS: Thank you for allowing me to evaluate Mr. Tom Meek. Mr. Meek is a 69 year-old man with PMHx of stroke (in July 2018 with LUE/LLE weakness), diabetes, hyperlipidemia, hypertension, AL, presenting to [facility] for "looking different" per vat tender and also some slurred speech, consulting Neurology for CT head finding of possible consideration of NPH. Patient states that about 2-3 months ago, he had a stroke that caused slurred speech along with left upper extremity and lower extremity weakness. Patient was in a rehab facility for 100 days. At this time, patient lives with his . Patient has home care, and yesterday, when the nurse was taking his blood pressure, his blood pressure was "all over the place," and he appeared different. They called his primary care doctor, and his primary care doctor wanted him to go to the emergency room. Patient denies any headache, nausea, vomiting, dizziness, vision changes, numbness or tingling. Patient denies any worsening weakness that was already present from his previous stroke. Denies any coughing, diarrhea or constipation. patient denies any difficulty with memory, urinary incontinence or walking prior to the stroke. PAST MEDICAL HISTORY: Stroke (in July 2018 with LUE/LLE weakness), diabetes, hyperlipidemia, hypertension, AL PAST SURGICAL HISTORY: Cholecystectomy, appendectomy, coronary bypass, aneurysm repair HOME MEDICATIONS: Glargine, Plavix, aspirin, melatonin, gabapentin, lisinopril, hydrocodone, atenolol, Xanax, venlafaxine, simvastatin, Imdur ALLERGIES: NO KNOWN DRUG ALLERGIES SOCIAL HISTORY: Former smoker. REVIEW OF SYSTEMS: The 14 systems are reviewed and no additional points are identified compared to the review of systems documented history and physical PHYSICAL EXAMINATION: VITAL SIGNS: T 97.5 HR 77 RR 18 BP 113/73 O2 sat 92% on RA GEN.: NAD, pleasant and cooperative HEENT: NCAT, sclera without icterus NECK: Supple SKIN AND EXTREMITIES: Warm to touch, no edema NEURO: MENTAL STATUS: Patient alert and oriented to self, place, time. Able to name the current president. Speech fluent, able to name and repeat, following all commands readily. No right and left disorientation or neglect. Patient is able to spell WORLD forwards and backwards. Difficulty with serial 7's, but patient states he's never been good with math. CRANIAL NERVES II THROUGH XII: II: Pupils are equal and reactive to light symmetrically. No afferent pupillary defect. Visual lan are intact. III, IV, : No ptosis. Extraocular movements full. Vertical nystagmus when looking to the L and R. Denies any double vision. V: Facial sensation intact from V1-3. VII. No clear facial asymmetry. VIII: Hearing intact to finger rub bilaterally. IX, X: Symmetric palate elevation. XI: Shoulder shrug intact. XII: Tongue midline without fasciculation or atrophy. MOTOR: Increased tone in b/l UE, more in LUE than RUE. Barely able move his L fingers. Able to move his forearm with gravity removed somewhat. Unable to move against gravity. Patient able to bend his L knee but not against gravity. RUE/RLE 5/5 strength. SENSORY: Intact to light touch in all 4 extremities REFLEXES: 2+ in RUE/RLE. Brisk LUE/LLE. L toes upgoing. Sustained clonus in L ankle. Henry's positive in L hand. COORDINATION: Finger to nose intact with L hand. No dysmetria. GAIT: Deferred due to LLE weakness DIAGNOSTIC TESTING: LABORATORY: WBC 7.8 hemoglobin 13.5 platelet 288 PTT 10.3 INR 1.0 Sodium 137 potassium 4.5 chloride 98 bicarb 29 BUN 10 creatinine 0.1 glucose 166 AST 22 ALT 17 troponin <0.012 urinalysis moderate leukoesterase, 14 WBC, neg nitrite IMAGING: CT Head w/o contrast 06/02/19: Age-related atrophic and chronic small vessle ischemic change without acute intracranial process. Correlate for NPH. ASSESSMENT: Mr. Meek is a 69 year-old man with PMHx of stroke (in July 2018 with LUE/LLE weakness), diabetes, hyperlipidemia, hypertension, AL, presenting to [facility] for "looking different" per vat tender and also some slurred speech, consulting Neurology for CT head finding of possible consideration of NPH. Patient with recent hx of stroke with residual L-sided weakness. Patient's clinical picture does not correlate to NPH. Patient on dual antiplatelets at this time. RECOMMENDATIONS: 1. No further inpatient work-up or management 2. Pt states he does not have an appointment with a neurologist yet. Patient needs to see a neurologist as outpatient within 2-3 weeks of discharge. Please have patient bring records from his previous hospitalization for stroke. 3. Neurology will sign off at this time. Please feel free to contact Neurology again if with additional questions or concerns. Past Medical History Past Medical History: CVA/TIA, Diabetes Mellitus, Hyperlipidemia, Hypertension, Myocardial Infarction ([place]) Additional Past Medical History / Comment(s): CVA July 2018, states he had aneurysm unsure exactly where. Last Myocardial Infarction Date:: 1998 History of Any Multi-Drug Resistant Organisms: MRSA Date of last positivie culture/infection: 04/10/19 MDRO Source:: left thigh Past Surgical History: Appendectomy, Cholecystectomy, Coronary Bypass/CABG, Orthopedic Surgery Additional Past Surgical History / Comment(s): ANEURYSM REPAIR Past Psychological History: No Psychological Hx Reported Additional Psychological History / Comment(s): and lives in the family home with the and family members. Moved from [place]. 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 No tobacco use. No experience. No recent travel. Pet dog in the home Smoking Status: Former smoker Past Alcohol Use History: None Reported Past Drug Use History: None Reported Medications and Allergies Home Medications Medication Instructions Recorded Confirmed Type ALPRAZolam [Xanax] 0.5 mg PO DAILY PRN 04/09/19 06/02/19 History Aspirin EC [Ecotrin Low Dose] 81 mg PO DAILY 04/09/19 06/02/19 History Atenolol [Tenormin] 12.5 mg PO DAILY 04/09/19 06/02/19 History Clopidogrel [Plavix] 75 mg PO DAILY 04/09/19 06/02/19 History Gabapentin [Neurontin] 300 mg PO DAILY 04/09/19 06/02/19 History HYDROcodone/APAP 5-325MG [[place] 1 tab PO DAILY 04/09/19 06/02/19 History 5-325] Insulin Glargine,Hum.rec.anlog 40 unit SQ DAILY 04/09/19 06/02/19 History [Lantus Solostar] Lisinopril [Prinivil] 10 mg PO DAILY 04/09/19 06/02/19 History Melatonin 5 mg PO HS 04/09/19 06/02/19 History Isosorbide Mononitrate ER [Imdur] 30 mg PO DAILY 04/10/19 06/02/19 History Simvastatin [Zocor] 40 mg PO DAILY 04/10/19 06/02/19 History Venlafaxine HCl ER [Effexor XR] 37.5 mg PO DAILY 04/10/19 06/02/19 History Fluconazole [Diflucan] 100 mg PO DAILY 7 Days #7 tablet 05/19/19 06/02/19 Rx Nystatin 100,000 Unit/gm Powd 1 applic TOPICAL BID 06/02/19 06/02/19 History [Mycostatin Powder] Allergies Allergy/AdvReac Type Severity Reaction Status Date / Time No Known Allergies Allergy Verified 06/02/19 15:06 Physical Examination - Vital Signs Vital Signs: Vital Signs Temp Pulse Pulse Resp BP BP Pulse Ox 06/03/19 07:00 97.5 F L 77 18 113/73 92 L 06/02/19 21:10 97.5 F L 72 20 103/67 96 06/02/19 20:06 75 18 115/84 98 06/02/19 14:36 97.7 F 72 16 107/62 96 Intake and Output 06/02/19 06/03/19 06/03/19 22:59 06:59 14:59 Other: Voiding Method Diaper Urinal Incontinent Diaper Incontinent # Voids 1 Results - Laboratory Findings CBC and BMP: 06/02/19 15:35 06/02/19 15:35 Abnormal Lab Findings: Abnormal Labs 06/02/19 06/02/19 06/02/19 15:35 17:55 20:42 Glucose 166 H POC Glucose (mg/dL) 160 H ALT 17 L Ur Leukocyte Esterase Moderate H Urine WBC 14 H Hyaline Casts 12 H Urine Mucus Rare H 06/03/19 07:46 Glucose POC Glucose (mg/dL) 110 H ALT Ur Leukocyte Esterase Urine WBC Hyaline Casts Urine Mucus
--- NOTE | 2019-06-03 12:39 | P.HPIM ---
History of Present Illness Patient is a pleasant 77-year-old gentleman mostly wheelchair bound in the past was a valid by for stroke with right upper extremity and lower extremity weakness came in with complaints of slurred speech patient is already in January an tiplatelet therapy.'s CAT scan of the head was done because of his slurred speech which was read as consideration for NPH because of that reason patient was admitted and patient was evaluated by neurology. Patient doesn't have any other symptoms of normal pressure hydrocephalus including increasing confusion bladder incontinence. Patient's weakness is that is his baseline patient completed physical therapy and subacute rehabilitation for 100 days and patient is presently at home home care. Patient denied any fever chills nausea vomiting dysuria. Patient is on lisinopril as well as a beta yaima patient has low normal blood pressure because of his discomfort and is being discontinued and patient was asked to check the blood pressure at home. If it starts going up he can be started on a low-dose of lisinopril a primary care physician. Patient will be discharged today neurology evaluated the patient not recommending any further intervention at this time. Review of Systems REVIEW OF SYSTEMS: CONSTITUTIONAL: No fever, no malaise, no fatigue. HEENT: No recent visual problems or hearing problems. Denied any sore throat. CARDIOVASCULAR: No chest pain, orthopnea, PND, no palpitations, no syncope. PULMONARY: No shortness of breath, no cough, no hemoptysis. GASTROINTESTINAL: No diarrhea, no nausea, no vomiting, no abdominal pain. NEUROLOGICAL: No headaches, no weakness, no numbness. HEMATOLOGICAL: Denies any bleeding or petechiae. GENITOURINARY: Denies any burning micturition, frequency, or urgency. MUSCULOSKELETAL/RHEUMATOLOGICAL: Denies any joint pain, swelling, or any muscle pain. ENDOCRINE: Denies any polyuria or polydipsia. The rest of the 14-point review of systems is negative. Past Medical History Past Medical History: CVA/TIA, Diabetes Mellitus, Hyperlipidemia, Hypertension, Myocardial Infarction ([place]) Additional Past Medical History / Comment(s): CVA July 2018, states he had aneurysm unsure exactly where. Last Myocardial Infarction Date:: 1998 History of Any Multi-Drug Resistant Organisms: MRSA Date of last positivie culture/infection: 04/10/19 MDRO Source:: left thigh Past Surgical History: Appendectomy, Cholecystectomy, Coronary Bypass/CABG, Orthopedic Surgery Additional Past Surgical History / Comment(s): ANEURYSM REPAIR Past Psychological History: No Psychological Hx Reported Additional Psychological History / Comment(s): and lives in the family home with the and family members. 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 No tobacco use. No experience. No recent travel. Pet dog in the home Smoking Status: Former smoker Past Alcohol Use History: None Reported Past Drug Use History: None Reported Medications and Allergies Home Medications Medication Instructions Recorded Confirmed Type ALPRAZolam [Xanax] 0.5 mg PO DAILY PRN 04/09/19 06/02/19 History Aspirin EC [Ecotrin Low Dose] 81 mg PO DAILY 04/09/19 06/02/19 History Atenolol [Tenormin] 12.5 mg PO DAILY 04/09/19 06/02/19 History Clopidogrel [Plavix] 75 mg PO DAILY 04/09/19 06/02/19 History Gabapentin [Neurontin] 300 mg PO DAILY 04/09/19 06/02/19 History HYDROcodone/APAP 5-325MG [[place] 1 tab PO DAILY 04/09/19 06/02/19 History 5-325] Insulin Glargine,Hum.rec.anlog 40 unit SQ DAILY 04/09/19 06/02/19 History [Lantus Solostar] Melatonin 5 mg PO HS 04/09/19 06/02/19 History Isosorbide Mononitrate ER [Imdur] 30 mg PO DAILY 04/10/19 06/02/19 History Simvastatin [Zocor] 40 mg PO DAILY 04/10/19 06/02/19 History Venlafaxine HCl ER [Effexor XR] 37.5 mg PO DAILY 04/10/19 06/02/19 History Fluconazole [Diflucan] 100 mg PO DAILY 7 Days #7 tablet 05/19/19 06/02/19 Rx Nystatin 100,000 Unit/gm Powd 1 applic TOPICAL BID 06/02/19 06/02/19 History [Mycostatin Powder] Allergies Allergy/AdvReac Type Severity Reaction Status Date / Time No Known Allergies Allergy Verified 06/02/19 15:06 Physical Exam Vitals: Vital Signs Temp Pulse Pulse Resp BP BP Pulse Ox 06/03/19 07:00 97.5 F L 77 18 113/73 92 L 06/02/19 21:10 97.5 F L 72 20 103/67 96 06/02/19 20:06 75 18 115/84 98 06/02/19 14:36 97.7 F 72 16 107/62 96 Intake and Output 06/02/19 06/03/19 06/03/19 22:59 06:59 14:59 Output Total 300 Balance -300 Output: Urine 300 Other: Voiding Method Diaper Urinal Incontinent Diaper Incontinent # Voids 1 PHYSICAL EXAMINATION: GENERAL: The patient is alert and oriented x3, not in any acute distress. Well developed, well nourished. HEENT: Pupils are round and equally reacting to light. EOMI. No scleral icterus. No conjunctival pallor. Normocephalic, atraumatic. No pharyngeal erythema. No thyromegaly. CARDIOVASCULAR: S1 and S2 present. No murmurs, rubs, or gallops. PULMONARY: Chest is clear to auscultation, no wheezing or crackles. ABDOMEN: Soft, nontender, nondistended, normoactive bowel sounds. No palpable organomegaly. MUSCULOSKELETAL: No joint swelling or deformity. EXTREMITIES: No cyanosis, clubbing, or pedal edema. NEUROLOGICAL: Gross neurological examination did not reveal any new focal deficits. Patient does have chronic weakness and uses wheelchair patient SKIN: No rashes. Results CBC & Chem 7: 06/02/19 15:35 06/02/19 15:35 Labs: Abnormal Lab Results - Last 24 Hours (Table) 06/02/19 06/02/19 06/02/19 Range/Units 15:35 17:55 20:42 Glucose 166 H (74-99) mg/dL POC Glucose (mg/dL) 160 H (75-99) mg/dL ALT 17 L (21-72) U/L Ur Leukocyte Esterase Moderate H (Negative) Urine WBC 14 H (0-5) /hpf Hyaline Casts 12 H (0-2) /lpf Urine Mucus Rare H (None) /hpf 06/03/19 06/03/19 Range/Units 07:46 11:40 Glucose (74-99) mg/dL POC Glucose (mg/dL) 110 H 136 H (75-99) mg/dL ALT (21-72) U/L Ur Leukocyte Esterase (Negative) Urine WBC (0-5) /hpf Hyaline Casts (0-2) /lpf Urine Mucus (None) /hpf Thrombosis Risk Factor Assmnt - Choose All That Apply Any of the Below Risk Factors Present?: Yes Each Factor Represents 1 point: Medical pt on bed rest Other Risk Factors: Yes Each Risk Factor Represents 2 Points: Age 61-74 years Other congenital or acquired thrombophilia - If yes, enter type in comment: No Thrombosis Risk Factor Assessment Total Risk Factor Score: 3 Thrombosis Risk Factor Assessment Level: Moderate Risk Assessment and Plan Plan: Slurred speech ruled out cerebrovascular accident Episode was brief patient is already in dual antiplatelet therapy because of which neurology is not recommending any further workup patient underwent extensive workup in August 2018 for stroke. -Chronic weakness in both legs and patient uses a wheelchair- -Enlarged ventricles secondary to atrophy of the brain no clinical symptoms of normal pressure hydrocephalus. -Hyperlipidemia -Hypertension - coronary artery disease
--- NOTE | 2019-06-03 12:49 | P.DS ---
Providers Date of admission: 06/02/19 17:58 Attending physician: Denia Blevins Consults: 06/02/19 17:58 Consult Physician Urgent Consulting Provider: Haylie Guillen Consult Reason/Comments: Altered mental status, normal pressure hydrocephalus Do you want consulting provider notified?: Yes Primary care physician: [facility] Hospital Course: As mentioned in HPI Plan - Discharge Summary Discharge Rx Participant: No New Discharge Prescriptions: Continue Insulin Glargine,Hum.rec.anlog [Lantus Solostar] 40 unit SQ DAILY Clopidogrel [Plavix] 75 mg PO DAILY Aspirin EC [Ecotrin Low Dose] 81 mg PO DAILY Melatonin 5 mg PO HS Gabapentin [Neurontin] 300 mg PO DAILY HYDROcodone/APAP 5-325MG [[place] 5-325] 1 tab PO DAILY Atenolol [Tenormin] 12.5 mg PO DAILY ALPRAZolam [Xanax] 0.5 mg PO DAILY PRN PRN Reason: Anxiety Venlafaxine HCl ER [Effexor XR] 37.5 mg PO DAILY Simvastatin [Zocor] 40 mg PO DAILY Isosorbide Mononitrate ER [Imdur] 30 mg PO DAILY Fluconazole [Diflucan] 100 mg PO DAILY 7 Days #7 tablet Nystatin 100,000 Unit/gm Powd [Mycostatin Powder] 1 applic TOPICAL BID Discontinued Lisinopril [Prinivil] 10 mg PO DAILY Discharge Medication List ALPRAZolam [Xanax] 0.5 mg PO DAILY PRN 04/09/19 [History] Aspirin EC [Ecotrin Low Dose] 81 mg PO DAILY 04/09/19 [History] Atenolol [Tenormin] 12.5 mg PO DAILY 04/09/19 [History] Clopidogrel [Plavix] 75 mg PO DAILY 04/09/19 [History] Gabapentin [Neurontin] 300 mg PO DAILY 04/09/19 [History] HYDROcodone/APAP 5-325MG [[place] 5-325] 1 tab PO DAILY 04/09/19 [History] Insulin Glargine,Hum.rec.anlog [Lantus Solostar] 40 unit SQ DAILY 04/09/19 [History] Melatonin 5 mg PO HS 04/09/19 [History] Isosorbide Mononitrate ER [Imdur] 30 mg PO DAILY 04/10/19 [History] Simvastatin [Zocor] 40 mg PO DAILY 04/10/19 [History] Venlafaxine HCl ER [Effexor XR] 37.5 mg PO DAILY 04/10/19 [History] Fluconazole [Diflucan] 100 mg PO DAILY 7 Days #7 tablet 05/19/19 [Rx] Nystatin 100,000 Unit/gm Powd [Mycostatin Powder] 1 applic TOPICAL BID 06/02/19 [History] Follow up Appointment(s)/Referral(s): Fanny Preston [NON-STAFF] - [facility],Clinic [Primary Care Provider] - 3 Days Discharge Disposition: HOME WITH HOME HEALTH SERVICES
[2019-06-03] MEDS ORDERED: MELATONIN 5 MG TABLET PO SCH (21:00)
== END 2019-06-03 16:25 | disposition home health service (06) ==
LOC: EC 14:28 → 4MS4W 17:58
PROVIDERS: ADMIT Hospitalist; ATTEND Hospitalist
DX: R41.82 Altered mental status, unspecified (principal); G91.2 (Idiopathic) normal pressure hydrocephalus; Z99.3 Dependence on wheelchair; R47.81 Slurred speech; I69.351 Hemiplegia and hemiparesis following cerebral infarction affecting right dominant side; I69.354 Hemiplegia and hemiparesis following cerebral infarction affecting left non-dominant side; E11.9 Type 2 diabetes mellitus without complications; E78.5 Hyperlipidemia, unspecified; I10 Essential (primary) hypertension; R32 Unspecified urinary incontinence; I25.2 Old myocardial infarction; I25.10 Atherosclerotic heart disease of native coronary artery without angina pectoris; Z86.14 Personal history of Methicillin resistant Staphylococcus aureus infection; Z90.49 Acquired absence of other specified parts of digestive tract; Z95.1 Presence of aortocoronary bypass graft; Z87.891 Personal history of nicotine dependence; Z79.82 Long term (current) use of aspirin; Z79.02 Long term (current) use of antithrombotics/antiplatelets; Z79.899 Other long term (current) drug therapy; Z79.891 Long term (current) use of opiate analgesic; Z79.4 Long term (current) use of insulin
CPT/HCPCS: 96361 ×3; 96360; 99285; 36415; 94760; 93005; 80053; 83605; 83735; 84484; 85025; 85610; 85730; 81001; 71046; 70450; G0378 ×2; 96374

== ENCOUNTER 2020-02-20 12:42 | Inpatient (IN) | payer MEDICARE, BC ==
[2020-02-20] MEDS ORDERED: SODIUM CHLORIDE 0.9% 1,000 ML IV STA (12:53)
[2020-02-20] MEDS ORDERED: ONDANSETRON 4 MG/2 ML VIAL IVP STA (12:53)
--- NOTE | 2020-02-20 12:56 | ED ---
General Adult HPI - General Stated complaint: Nausea Time Seen by Provider: 02/20/20 12:50 Source: RN notes reviewed, old records reviewed - History of Present Illness Initial comments: This is a 70-year-old male presents emergency Department with a past medical history significant for stroke with left-sided paralysis as well as open heart surgery and repair of an aneurysm in his abdomen. Patient comes in today because he states since Saturday he's been having nausea and vomiting. Patient states she's been unable to tolerate any food. He has been drinking some water however. Patient states she's not had a bowel movement for 4 days but he occasionally passes some gas. Patient denies any chest pain or difficulty breathing or shortness of breath. Patient denies any recent fever chills per patient states she does not have any specific abdominal pain occasionally some cramping. Patient denies any dysuria hematuria urinary frequency. Patient denies any back pain. Patient denies lightheadedness or dizziness. Patient denies any numbness or weakness. Patient denies any headache. - Related Data Home Medications Medication Instructions Recorded Confirmed ALPRAZolam [Xanax] 0.5 mg PO DAILY PRN 04/09/19 06/02/19 Aspirin EC [Ecotrin Low Dose] 81 mg PO DAILY 04/09/19 06/02/19 Atenolol [Tenormin] 12.5 mg PO DAILY 04/09/19 06/02/19 Clopidogrel [Plavix] 75 mg PO DAILY 04/09/19 06/02/19 Gabapentin [Neurontin] 300 mg PO DAILY 04/09/19 06/02/19 HYDROcodone/APAP 5-325MG [[place] 1 tab PO DAILY 04/09/19 06/02/19 5-325] Insulin Glargine,Hum.rec.anlog 40 unit SQ DAILY 04/09/19 06/02/19 [Lantus Solostar] Melatonin 5 mg PO HS 04/09/19 06/02/19 Isosorbide Mononitrate ER [Imdur] 30 mg PO DAILY 04/10/19 06/02/19 Simvastatin [Zocor] 40 mg PO DAILY 04/10/19 06/02/19 Venlafaxine HCl ER [Effexor XR] 37.5 mg PO DAILY 04/10/19 06/02/19 Nystatin 100,000 Unit/gm Powd 1 applic TOPICAL BID 10/01/19 10/01/19 [Mycostatin Powder] Previous Rx's Medication Instructions Recorded Fluconazole [Diflucan] 100 mg PO DAILY 7 Days #7 tablet 05/19/19 Allergies Allergy/AdvReac Type Severity Reaction Status Date / Time No Known Allergies Allergy Verified 02/20/20 12:55 Review of Systems ROS Statement: Those systems with pertinent positive or pertinent negative responses have been documented in the HPI. ROS Other: All systems not noted in ROS Statement are negative. Past Medical History Past Medical History: CVA/TIA, Diabetes Mellitus, Hyperlipidemia, Hypertension, Myocardial Infarction ([place]) Additional Past Medical History / Comment(s): CVA July 2018, states he had aneurysm unsure exactly where. Last Myocardial Infarction Date:: 1998 History of Any Multi-Drug Resistant Organisms: MRSA Date of last positivie culture/infection: 04/10/19 MDRO Source:: left thigh Past Surgical History: Appendectomy, Cholecystectomy, Coronary Bypass/CABG, Orthopedic Surgery Additional Past Surgical History / Comment(s): ANEURYSM REPAIR Past Psychological History: No Psychological Hx Reported Additional Psychological History / Comment(s): and lives in the family home with the and family members. Moved from [place]. 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 No tobacco use. No experience. No recent travel. Pet dog in the home Smoking Status: Former smoker Past Alcohol Use History: None Reported Past Drug Use History: None Reported General Exam - General Exam Comments Initial Comments: GENERAL: Patient is well-developed and well-nourished. Patient is nontoxic and well- hydrated and is in mild distress. ENT: Neck is soft and supple. No significant lymphadenopathy is noted. Oropharynx is clear. Moist mucous membranes. Neck has full range of motion without eliciting any pain. EYES: The sclera were anicteric and conjunctiva were pink and moist. Extraocular movements were intact and pupils were equal round and reactive to light. Eyelids were unremarkable. PULMONARY: Unlabored respirations. Good breath sounds bilaterally. No audible rales rhonchi or wheezing was noted. CARDIOVASCULAR: There is a regular rate and rhythm without any murmurs gallops or rubs. ABDOMEN: Soft and nontender with normal bowel sounds. SKIN: Skin is clear with no lesions or rashes and otherwise unremarkable. NEUROLOGIC: Patient is alert and oriented x3. Cranial nerves II through XII are grossly intact. Motor and sensory are also intact. Normal speech, volume and content. Symmetrical smile. MUSCULOSKELETAL: Normal extremities with adequate strength and full range of motion. No lower extremity swelling or edema. No calf tenderness. LYMPHATICS: No significant lymphadenopathy is noted PSYCHIATRIC: Normal psychiatric evaluation. Course Vital Signs 02/20/20 12:52 Temperature 97.5 F L Pulse Rate 62 Respiratory 20 Rate Blood Pressure 137/64 O2 Sat by Pulse 95 Oximetry Medical Decision Making - Medical Decision Making KUB shows no acute abnormality I started the patient on D5 0.45. Patient has pancreatitis. I spoke with Dr. Blevins he agreed to admit the patient admitted the patient wrote admitting orders. - Lab Data Result diagrams: 02/20/20 13:00 02/20/20 13:00 Lab Results 02/20/20 02/20/20 02/20/20 Range/Units 13:00 13:00 13:00 WBC 18.4 H (3.8-10.6) k/uL RBC 4.55 (4.30-5.90) m/uL Hgb 13.9 (13.0-17.5) gm/dL Hct 40.7 (39.0-53.0) % MCV 89.5 (80.0-100.0) fL MCH 30.5 (25.0-35.0) pg MCHC 34.1 (31.0-37.0) g/dL RDW 12.9 (11.5-15.5) % Plt Count 258 (150-450) k/uL Neutrophils % 80 % Lymphocytes % 14 % Monocytes % 4 % Eosinophils % 2 % Basophils % 0 % Neutrophils # 14.7 H (1.3-7.7) k/uL Lymphocytes # 2.6 (1.0-4.8) k/uL Monocytes # 0.7 (0-1.0) k/uL Eosinophils # 0.3 (0-0.7) k/uL Basophils # 0.0 (0-0.2) k/uL Sodium 126 L (137-145) mmol/L Potassium 4.0 (3.5-5.1) mmol/L Chloride 87 L (98-107) mmol/L Carbon Dioxide 30 (22-30) mmol/L Anion Gap 9 mmol/L BUN 11 (9-20) mg/dL Creatinine 0.64 L (0.66-1.25) mg/dL Est GFR (CKD-EPI)AfAm >90 (>60 ml/min/1.73 sqM) Est GFR (CKD-EPI)NonAf >90 (>60 ml/min/1.73 sqM) Glucose 68 L (74-99) mg/dL Plasma Lactic Acid [place] 1.0 (0.7-2.0) mmol/L Calcium 8.6 (8.4-10.2) mg/dL Total Bilirubin 1.7 H (0.2-1.3) mg/dL AST 21 (17-59) U/L ALT 11 (4-49) U/L Alkaline Phosphatase 70 (38-126) U/L Total Protein 6.8 (6.3-8.2) g/dL Albumin 3.3 L (3.5-5.0) g/dL Amylase 98 (30-110) U/L Lipase 931 H (23-300) U/L Disposition Clinical Impression: Pancreatitis Disposition: ADMITTED IP TO THIS HOSP Referrals: [facility],Clinic [Primary Care Provider] - 1-2 days Time of Disposition: 14:21
[2020-02-20 13:15] LABS: Basophils % (A) 0 %; Eosinophils # (A) 0.3 k/uL (0-0.7); Eosinophils % (A) 2 %; HCT 40.7 % (39.0-53.0); HGB 13.9 gm/dL (13.0-17.5); Lymphocytes # (A) 2.6 k/uL (1.0-4.8); Lymphocytes % (A) 14 %; MCH 30.5 pg (25.0-35.0); MCHC 34.1 g/dL (31.0-37.0); MCV 89.5 fL (80.0-100.0); Mean Platelet Volume 6.9; Monocytes # (A) 0.7 k/uL (0-1.0); Monocytes % (A) 4 %; Neutrophils # (A) 14.7 k/uL (1.3-7.7); Neutrophils % (A) 80 %; Platelet Count 258 k/uL (150-450); RBC 4.55 m/uL (4.30-5.90); RDW 12.9 % (11.5-15.5); WBC 18.4 k/uL (3.8-10.6)
[2020-02-20 13:29] LABS: ALT 11 U/L (4-49); AST 21 U/L (17-59); African American GFR (CKD) >90 (>60 ml/min/1.73 sqM); Albumin 3.3 g/dL (3.5-5.0); Alkaline Phosphatase 70 U/L (38-126); Amylase 98 U/L (30-110); Anion Gap 9 mmol/L; Blood Urea Nitrogen 11 mg/dL (9-20); Calcium 8.6 mg/dL (8.4-10.2); Carbon Dioxide 30 mmol/L (22-30); Chloride 87 mmol/L (98-107); Glucose 68 mg/dL (74-99); Non-African American GFR(CKD) >90 (>60 ml/min/1.73 sqM); Sodium 126 mmol/L (137-145); Total Bilirubin 1.7 mg/dL (0.2-1.3); Total Protein 6.8 g/dL (6.3-8.2)
--- NOTE | 2020-02-20 13:42 | XR ---
EXAMINATION TYPE: XR KUB , 2 VIEWS DATE OF EXAM ORDERED: 02/20/2020 HISTORY: abdominal pain. COMPARISON: None. FINDINGS: Lung bases are clear. There is been a midline sternotomy. The gallbladder is been removed. Within the abdomen, there are bilateral hip prostheses in place. The abdominal gas pattern is within normal limits. There is no evidence of obstruction or free air. No unusual calcifications are seen. IMPRESSION: NO ACUTE INTRA-ABDOMINAL ABNORMALITY.
[2020-02-20] MEDS ORDERED: DEXTROSE 5%-0.45% NACL 1,000 ML IV ONE (14:11)
[2020-02-20] MEDS ORDERED: DEXTROSE 50% SYRINGE 50 ML IVP STA (16:59)
[2020-02-20 17:24] LABS: Glucose,Whole Blood 100 mg/dL (75-99)
[2020-02-20 17:24] LABS: Glucose,Whole Blood 58 mg/dL (75-99)
[2020-02-20 18:05] LABS: Amorphous Sediment,Urine Rare /hpf; Bacteria,Urine Few /hpf; RBC,Urine 3 /hpf (0-5); Squamous Epithelial Cell,Urine <1 /hpf (0-4); WBC,Urine 9 /hpf (0-5)
[2020-02-20 18:06] LABS: Appearance,Urine Clear (Clear); Bilirubin,Urine Negative (Negative); Blood,Urine Negative (Negative); Color,Urine Light Yellow; Glucose,Urine (UA) 1+ (Negative); Ketones,Urine Negative (Negative); Leukocyte Esterase,Urine Large (Negative); Nitrite,Urine Negative (Negative); Protein,Urine Negative (Negative); Specific Gravity,Urine 1.005 (1.001-1.035); Urobilinogen,Urine <2.0 mg/dL (<2.0)
[2020-02-20] MEDS ORDERED: ALPRAZolam 0.5 MG TAB PO PRN (19:05)
[2020-02-20] MEDS ORDERED: ACETAMINOPHEN PO PRN (19:05)
[2020-02-20] MEDS ORDERED: IOPAMIDOL CONTRAST (ORAL USE) VIAL PO PRN (19:06)
[2020-02-20] MEDS ORDERED: ACETAMINOPHEN TAB 500 MG TAB PO PRN (19:08)
[2020-02-20] MEDS ORDERED: TEMAZEPAM 15 MG CAP PO PRN (19:08)
[2020-02-20] MEDS ORDERED: HYDROcodone/APAP 5-325MG 1 EACH TAB PO PRN (19:08)
[2020-02-20] MEDS ORDERED: HYDROmorphone 0.5 MG/0.5 ML SYRINGE IVP PRN (19:08)
[2020-02-20] MEDS ORDERED: LORazepam 0.5 MG TAB PO PRN (19:09)
--- NOTE | 2020-02-20 20:11 | HP ---
HISTORY AND PHYSICAL DATE OF SERVICE: 02/20/2020 CHIEF COMPLAINT: Nausea and abdominal pain. HISTORY OF PRESENT ILLNESS: This 70-year-old gentleman with a past medical history of multiple medical problems including history of CVA, TIA, diabetes, hypertension, history of myocardial infarction, MRSA, history of CAD, CABG being followed by Dr. Fernandez in the [facility], was complaining of some nausea and upper abdominal pain. The patient had a stroke with left-sided weakness. The patient apparently had surgery for repair of the abdominal aneurysm as well. The patient has long history of prolonged alcohol intake but subsequently patient stopped drinking and subsequently patient drank alcohol for his sister's 50th birthday. The patient has some diarrhea. The patient came to [facility] and patient had vomiting as well. The lipase is elevated. Patient admitted for further evaluation and treatment. There is no history of fever, rigors or chills. No headache, loss of consciousness, seizures at this time. The patient also found to have hypoglycemia in the ER. PAST MEDICAL HISTORY: History of CVA, TIA, history of diabetes, history of hypertension, hyperlipidemia, history of MRSA, history of appendectomy, CAD/CABG. MEDICATIONS: Prior to admission include home medications are: 1. Insulin Lantus 40 units subcu q.h.s. 2. Tylenol 325-650 q.6h p.r.n. 3. Prilosec 20 mg p.o. 4. Flomax 0.4 daily. 5. Zestril 10 mg p.o. daily. 6. Vitamin D3 1000 mg p.o. daily. 7. Neurontin 400 mg p.o. t.i.d. 8. Effexor XR 37.5 mg p.o. daily. 9. Zocor 40 mg q.h.s. 10.Melatonin 5 mg q.h.s. 11.Plavix 75 mg p.o. daily. 12.Tenormin 25 mg p.o. daily. 13.Ecotrin 81 mg p.o. daily. 14.Xanax 0.5 daily p.r.n. ALLERGIES: None. FAMILY HISTORY: No history of heart disease or strokes in the family. SOCIAL HISTORY: History of alcohol as mentioned earlier. Previous history of smoking. REVIEW OF SYSTEMS: ENT: Diminished vision, hearing. CARDIOVASCULAR: No angina. RESPIRATORY: No cough or hemoptysis. GI as mentioned earlier. no dysuria. Nervous System as mentioned earlier. Allergy/Immunology: No asthma, hayfever. MUSCULOSKELETAL as mentioned earlier. HEMATOLOGY/ONCOLOGY: No history of anemia. ENDOCRINE as mentioned earlier. CONSTITUTIONAL: As mentioned earlier. DERMATOLOGY: Negative. RHEUMATOLOGY negative. PSYCHIATRY as mentioned earlier. PHYSICAL EXAMINATION: Alert and oriented times three. Pulse 64, blood pressure 130/75, respiration 20, temperature 98 degrees, pulse ox 94% on room air. HEENT: Conjunctivae normal. Oral mucosa moist. NECK is no jugular venous distention. No carotid bruit. No lymph node enlargement. CARDIOVASCULAR: S1, S2 muffled. No S3, no S4. RESPIRATORY: Breath sounds diminished in the bases. A few scattered rhonchi. No crackles. ABDOMEN: Soft. Obese. Mild diffuse tenderness in the epigastrium present. No guarding. No rigidity. No mass palpable. No ascites. Bowel sounds present. LEGS no edema. No swelling. NERVOUS SYSTEM: Higher functions as mentioned earlier. Moves all 4 limbs. No focal motor or sensory deficits. LYMPHATICS: No lymph nodes palpable in the neck, axillae or groin. JOINTS: No active deforming arthropathy. LABS: At this time shows WBC 18.5, hemoglobin 13.9, sodium is 126, otherwise glucose 68, 58 and 100. Total bilirubin is 1.7, albumin 3.3, lipase is 931. UA noted, possibly UTI. ASSESSMENT: 1. Abdominal pain with acute pancreatitis, possibly secondary from alcohol, present on admission. 2. Hypoglycemia possibly diabetes type 2 uncontrolled. 3. Hyponatremia. 4. History of ETOH. 5. Increased WBC. 6. Possible acute urinary tract infection present on admission. 7. History of cerebrovascular accident/transient ischemic attack with left-sided weakness. 8. Diabetes mellitus type 2. 9. Hypertension. 10.Hyperlipidemia. 11.History of myocardial infarction. 12.History of MRSA. 13.History of coronary artery disease, coronary artery bypass grafting. 14.History of aneurysm repair. 15.Obesity with body mass index of 33. 16.FULL CODE. RECOMMENDATIONS AND DISCUSSION: This 70-year-old gentleman presented with multiple complex medical issues, we will monitor the patient closely. Continue the current management and will provide symptomatic treatment. We will keep the patient on n.p.o. diet except medications and I would also recommend a CT scan of the abdomen and pelvis. Otherwise, obtain ultrasound of the abdomen. Otherwise, symptomatic treatment as well as DVT prophylaxis. Overall prognosis extremely guarded. Exact etiology of pancreatitis is unknown at this time. Alcohol usage noted. I would also recommend a lipid panel in the morning. See orders for details. Prognosis guarded. Further recommendations to follow. MMODL / IJN: [id number] /
[2020-02-20 21:51] LABS: Glucose,Whole Blood 65 mg/dL (75-99)
[2020-02-20 22:10] LABS: Glucose,Whole Blood 67 mg/dL (75-99)
[2020-02-20 22:17] LABS: Glucose,Whole Blood 73 mg/dL (75-99)
[2020-02-20] MEDS: PANTOPRAZOLE 40 MG/10 ML VIAL IVP SCH (22:43)
[2020-02-20] MEDS: GABAPENTIN 400 MG CAP PO SCH (22:44)
[2020-02-20] MEDS: HEPARIN SODIUM,PORCINE 5,000 UNIT/ML 1 ML VIAL SQ SCH (22:44)
[2020-02-20] MEDS: MELATONIN 5 MG TABLET PO SCH (22:44)
[2020-02-20] MEDS: ATORVASTATIN 20 MG TAB PO SCH (22:44)
[2020-02-20] MEDS: SODIUM CHLORIDE 0.9% 1,000 ML IV SCH (22:45)
[2020-02-21 01:53] LABS: Glucose,Whole Blood 96 mg/dL (75-99)
--- NOTE | 2020-02-21 02:06 | CT ---
EXAMINATION TYPE: CT abdomen pelvis wo con DATE OF EXAM: 02/20/2020 COMPARISON: None HISTORY: Abdominal pain. CT DLP: 1453.4 mGycm Automated exposure control for dose reduction was used. Images were obtained from the diaphragm to the floor the pelvis with no contrast. There are small bilateral pleural effusions with mild atelectasis at the lung bases. Heart is slightl y enlarged. There is no pericardial effusion. Stomach is large with high density material in the sarah kelly fundus that could be retained oral contrast in the stomach. There is no evidence of pancreatic ma ss. Liver shows no focal defect. There are clips from cholecystectomy. There is no adrenal mass. Kidneys have normal size. There is no hydronephrosis. Ureters are not dilat ed. There is no retroperitoneal adenopathy. Bladder distends smoothly. There is bilateral hip prosthe sis. There is no inguinal hernia. There is no free fluid in the pelvis. There are numerous sigmoid diverticula. There is some fat stranding and fluid posterior to the descen ding colon and the left paracolic gutter. There is no evidence of free air. There is no ascites. Appendix is not definitely seen. There is no s ign of thickened appendix. The lumbar spine shows normal alignment of the vertebra. Disc spaces are f airly normal. There is no compression fracture. The bony pelvis is intact. IMPRESSION: There is some colonic diverticulosis. There is free fluid in the left paracolic gutter and mild fat s tranding. This could relate to diverticulitis. Dilated stomach with fluid suggestive of gastroparesis. Cardiomegaly with small pleural effusions and basilar atelectasis. Congestive heart failure is possib le.
[2020-02-21] MEDS: SODIUM CHLORIDE 0.9% 1,000 ML IV SCH ×4 (06:12→17:44)
[2020-02-21 06:53] LABS: Glucose,Whole Blood 75 mg/dL (75-99)
[2020-02-21 07:05] LABS: Glucose,Whole Blood 73 mg/dL (75-99)
[2020-02-21 07:55] LABS: Basophils # (A) 0.1 k/uL (0-0.2); Basophils % (A) 0 %; Eosinophils # (A) 0.4 k/uL (0-0.7); Eosinophils % (A) 3 %; HCT 40.4 % (39.0-53.0); HGB 12.9 gm/dL (13.0-17.5); Lymphocytes # (A) 2.4 k/uL (1.0-4.8); Lymphocytes % (A) 18 %; MCH 29.4 pg (25.0-35.0); MCV 91.9 fL (80.0-100.0); Mean Platelet Volume 7.1; Monocytes # (A) 0.8 k/uL (0-1.0); Monocytes % (A) 6 %; Neutrophils # (A) 9.4 k/uL (1.3-7.7); Neutrophils % (A) 71 %; Platelet Count 266 k/uL (150-450); RDW 13.2 % (11.5-15.5); WBC 13.2 k/uL (3.8-10.6)
--- NOTE | 2020-02-21 08:03 | US ---
EXAMINATION TYPE: US gallbladder DATE OF EXAM: 02/21/2020 COMPARISON: Previous CT scan dated 02/20/2020 CLINICAL HISTORY: florecita. Pt states N&V, GB removed EXAM MEASUREMENTS: Liver Length: 12.4 cm CBD: 0.8 cm Right Kidney: 11.7 x 4.7 x 4.9 cm Large pt body habitus Pancreas: Obscured by bowel gas Liver: Visualized portions appeared wnl Gallbladder: Surgically absent Evidence for sonographic Lopez's sign: No CBD: wnl, for post florecita Right Kidney: wnl The pancreas is obscured. The liver is normal in size without biliary dilatation. The gallbladder has been removed. Distal comm on hepatic duct measures 8 mm. The right kidney is normal. IMPRESSION: STATUS POST CHOLECYSTECTOMY.
[2020-02-21 08:16] LABS: ALT 9 U/L (4-49); AST 20 U/L (17-59); African American GFR (CKD) >90 (>60 ml/min/1.73 sqM); Albumin 2.9 g/dL (3.5-5.0); Alkaline Phosphatase 63 U/L (38-126); Amylase 58 U/L (30-110); Anion Gap 6 mmol/L; Blood Urea Nitrogen 10 mg/dL (9-20); Calcium 8.5 mg/dL (8.4-10.2); Carbon Dioxide 31 mmol/L (22-30); Chloride 93 mmol/L (98-107); Cholesterol 99 mg/dL (<200); Glucose 81 mg/dL (74-99); HDL Cholesterol 33 mg/dL (40-60); LDL Cholesterol,Calculated 52 mg/dL (0-99); Non-African American GFR(CKD) >90 (>60 ml/min/1.73 sqM); Sodium 130 mmol/L (137-145); Total Bilirubin 1.3 mg/dL (0.2-1.3); Total Protein 6.1 g/dL (6.3-8.2); Triglycerides 72 mg/dL (<150)
[2020-02-21] MEDS: VENLAFAXINE HCL ER 37.5 MG CAP PO SCH (08:39)
[2020-02-21] MEDS: CHOLECALCIFEROL 1,000 UNIT TAB PO SCH (08:39)
[2020-02-21] MEDS: PANTOPRAZOLE 40 MG/10 ML VIAL IVP SCH ×2 (08:39→22:07)
[2020-02-21] MEDS: TAMSULOSIN 0.4 MG CAP.ER.24H PO SCH (08:39)
[2020-02-21] MEDS: atenoloL 25 MG TAB PO SCH (08:39)
[2020-02-21] MEDS: lisinopriL 10 MG TAB PO SCH (08:39)
[2020-02-21] MEDS: CLOPIDOGREL 75 MG TAB PO SCH (08:39)
[2020-02-21] MEDS: GABAPENTIN 400 MG CAP PO SCH ×3 (08:39→22:07)
[2020-02-21] MEDS: HEPARIN SODIUM,PORCINE 5,000 UNIT/ML 1 ML VIAL SQ SCH ×2 (08:43→22:08)
[2020-02-21] MEDS ORDERED: NON FORMULARY DRUG (Omeprazole 20 MG) PO SCH (09:00)
[2020-02-21 11:55] LABS: Glucose,Whole Blood 109 mg/dL (75-99)
--- NOTE | 2020-02-21 13:46 | XR ---
EXAMINATION TYPE: XR chest 1V portable DATE OF EXAM: 02/21/2020 HISTORY: chf. REFERENCE: Previous study dated 06/02/2019. FINDINGS: There has been a midline sternotomy. The heart is mildly prominent. The lungs are clear. Pl eural spaces are clear. IMPRESSION: MILD CARDIOMEGALY.
[2020-02-21 16:32] LABS: Glucose,Whole Blood 126 mg/dL (75-99)
[2020-02-21 22:00] LABS: Glucose,Whole Blood 104 mg/dL (75-99)
[2020-02-21] MEDS: MELATONIN 5 MG TABLET PO SCH (22:07)
[2020-02-21] MEDS: ATORVASTATIN 20 MG TAB PO SCH (22:08)
--- NOTE | 2020-02-22 00:21 | PN ---
PROGRESS NOTE DATE OF SERVICE: 02/21/2020 This 70-year-old gentleman admitted with nausea and abdominal pain is being closely monitored at this time. Patient also features of acute pancreatitis. The CT scan of the abdomen and pelvis done yesterday which showed some colonic diverticulosis and some free fluid in the left paracolic gutter and stomach and fluid suggestive of gastroparesis, some small pleural effusion also noted. A chest x-ray ordered was done subsequently to rule out the possibility of CHF, which was reviewed personally by me showed some evidence of cardiomegaly and not much fluid abnormalities. Patient closely monitored. PAST MEDICAL HISTORY: Reviewed. REVIEW OF SYSTEMS: CARDIOVASCULAR SYSTEM: As mentioned earlier. RESPIRATORY SYSTEM: As mentioned earlier. GI: As mentioned earlier. : No dysuria. NERVOUS SYSTEM: No numbness or weakness. CURRENT MEDICATIONS: Current medications are reviewed and include: 1. Tylenol p.r.n. 2. [place] 5 mg p.r.n. 3. Xanax. 4. Tenormin. 5. Lipitor. 6. Vitamin D3. 7. Plavix. 8. Neurontin. 9. Heparin. 10.Dilaudid. 11.Zestril. 12.Ativan. 13.Melatonin. 14.Protonix. 15.Flomax. 16.Restoril. 17.Effexor. Doses are reviewed. PHYSICAL EXAMINATION: Patient is alert and oriented x3. Pulse blood pressure 107/66, respiration 18, temperature 97.5, pulse ox 94% on room air. HEENT: Conjunctivae normal. NECK: No jugular venous distention. CARDIOVASCULAR: S1, S2 muffled. RESPIRATORY: Breath sounds are diminished at the bases. A few scattered rhonchi and crackles. ABDOMEN: Soft, mild diffuse discomfort. epigastric. LEGS: No edema, no swelling. NERVOUS SYSTEM: No focal deficits. LABS: WBC 13.2, hemoglobin 12.9, sodium 130, potassium 4 and glucose is 109. Lipase 1049. Lipase was 931 yesterday. ASSESSMENT: 1. Abdominal pain with possible acute severe pancreatitis secondary to alcohol, present on admission. 2. Hypoglycemia possibly diabetes mellitus type 2, uncontrolled. 3. Hyponatremia. 4. History of EtOH. 5. Increased WBC. 6. Possible acute urinary tract infection, present on admission. 7. History of cerebrovascular accident, transient ischemic attack with left- sided weakness. 8. Diabetes mellitus type 2. 9. Hypertension. 10.Hyperlipidemia. 11.History of myocardial infarction. 12.History of MRSA. 13.History of coronary artery disease, coronary artery bypass grafting. 14.History of aneurysm repair. 15.Obesity with body mass index of 33. 16.FULL CODE. RECOMMENDATIONS AND DISCUSSION: Recommend to continue current medications, continue symptomatic treatment. Otherwise, at this time I recommend to continue with current medications. Continue clear liquids, advance as tolerated. Continue the pain medications. Repeat amylase and lipase. Continue with empiric antibiotics. Prognosis guarded. Further recommendations to follow. MMODL / IJN: [id number] / MTDD
[2020-02-22 02:10] LABS: Glucose,Whole Blood 92 mg/dL (75-99)
[2020-02-22] MEDS: SODIUM CHLORIDE 0.9% 1,000 ML IV SCH ×3 (06:16→21:37)
[2020-02-22 07:09] LABS: Glucose,Whole Blood 87 mg/dL (75-99)
[2020-02-22] MEDS: atenoloL 25 MG TAB PO SCH (08:17)
[2020-02-22] MEDS: GABAPENTIN 400 MG CAP PO SCH ×3 (08:17→21:36)
[2020-02-22] MEDS: lisinopriL 10 MG TAB PO SCH (08:17)
[2020-02-22] MEDS: HEPARIN SODIUM,PORCINE 5,000 UNIT/ML 1 ML VIAL SQ SCH ×2 (08:17→21:37)
[2020-02-22] MEDS: TAMSULOSIN 0.4 MG CAP.ER.24H PO SCH (08:17)
[2020-02-22] MEDS: CHOLECALCIFEROL 1,000 UNIT TAB PO SCH (08:17)
[2020-02-22] MEDS: CLOPIDOGREL 75 MG TAB PO SCH (08:17)
[2020-02-22] MEDS: VENLAFAXINE HCL ER 37.5 MG CAP PO SCH (08:17)
[2020-02-22] MEDS: PANTOPRAZOLE 40 MG/10 ML VIAL IVP SCH ×2 (08:17→21:36)
[2020-02-22 10:46] LABS: Basophils % (A) 0 %; Eosinophils # (A) 0.4 k/uL (0-0.7); Eosinophils % (A) 4 %; HCT 38.4 % (39.0-53.0); HGB 11.6 gm/dL (13.0-17.5); Lymphocytes # (A) 1.8 k/uL (1.0-4.8); Lymphocytes % (A) 18 %; MCH 28.1 pg (25.0-35.0); MCHC 30.1 g/dL (31.0-37.0); MCV 93.5 fL (80.0-100.0); Monocytes # (A) 0.5 k/uL (0-1.0); Monocytes % (A) 6 %; Neutrophils # (A) 7.1 k/uL (1.3-7.7); Neutrophils % (A) 71 %; Platelet Count 262 k/uL (150-450); RBC 4.11 m/uL (4.30-5.90); RDW 13.2 % (11.5-15.5); WBC 9.9 k/uL (3.8-10.6)
[2020-02-22 10:59] LABS: ALT 9 U/L (4-49); AST 19 U/L (17-59); African American GFR (CKD) >90 (>60 ml/min/1.73 sqM); Albumin 2.8 g/dL (3.5-5.0); Alkaline Phosphatase 67 U/L (38-126); Amylase 70 U/L (30-110); Anion Gap 4 mmol/L; Blood Urea Nitrogen 8 mg/dL (9-20); Calcium 8.3 mg/dL (8.4-10.2); Carbon Dioxide 32 mmol/L (22-30); Chloride 97 mmol/L (98-107); Glucose 113 mg/dL (74-99); Non-African American GFR(CKD) >90 (>60 ml/min/1.73 sqM); Sodium 133 mmol/L (137-145); Total Bilirubin 0.8 mg/dL (0.2-1.3); Total Protein 5.9 g/dL (6.3-8.2)
[2020-02-22 11:28] LABS: Glucose,Whole Blood 119 mg/dL (75-99)
--- NOTE | 2020-02-22 14:31 | P.PN ---
Subjective Progress Note Date: 02/22/20 Principal diagnosis: This is a 70-year-old male who was recently admitted with nausea and abdominal pain and is being closely monitored. Patient also exhibiting features of acute pancreatitis. Current amylase is 70 and lipase is slightly worsened at 1252 today. Patient was maintained on a clear liquid diet and tolerating with no reports of nausea or vomiting noted. Patient asking for an advancement in diet. Diet will be advanced to full liquids and monitor for tolerance. Will repeat a.m. labs. Instructed the patient to increase activity as tolerated and not lying in bed all day. Review of systems: Constitutional: No reports of fevers or chills Cardiovascular: No reports of chest pain or palpitations Respiratory: No reports of shortness of breath or cough GI: No reports of nausea, vomiting, or diarrhea : No reports of dysuria or retention Neurovascular: No reports of weakness or numbness Active Medications Acetaminophen (Tylenol Tab) 500 mg PO Q6HR PRN PRN Reason: Fever and/or Mild Pain Hydrocodone Bitart/Acetaminophen (Tracy 5-325) 1 each PO Q6HR PRN PRN Reason: Moderate Pain Alprazolam (Xanax) 0.5 mg PO DAILY PRN PRN Reason: Anxiety Atenolol (Tenormin) 25 mg PO DAILY [facility] Last Admin: 02/22/20 08:17 Dose: 25 mg Documented by: Atorvastatin Calcium (Lipitor) 20 mg PO HS [facility] Last Admin: 02/21/20 22:08 Dose: 20 mg Documented by: Cholecalciferol (Vitamin D3 (25 Mcg = 1000 Iu)) 1,000 unit PO DAILY [facility] Last Admin: 02/22/20 08:17 Dose: 1,000 unit Documented by: Clopidogrel Bisulfate (Plavix) 75 mg PO DAILY [facility] Last Admin: 02/22/20 08:17 Dose: 75 mg Documented by: Gabapentin (Neurontin) 400 mg PO TID [facility] Last Admin: 02/22/20 08:17 Dose: 400 mg Documented by: Heparin Sodium (Porcine) (Heparin) 5,000 unit SQ Q12HR [facility] Last Admin: 02/22/20 08:17 Dose: 5,000 unit Documented by: Hydromorphone HCl (Dilaudid) 0.5 mg IVP Q3HR PRN PRN Reason: Severe Pain Ceftriaxone Sodium 1 gm/ (Sodium Chloride) 50 mls @ 100 mls/hr IVPB Q24HR [facility] Last Admin: 02/22/20 08:16 Dose: 100 mls/hr Documented by: Sodium Chloride (Saline 0.9%) 1,000 mls @ 75 mls/hr IV .[id number] [facility] Last Admin: 02/22/20 06:16 Dose: 75 mls/hr Documented by: Lisinopril (Zestril) 10 mg PO DAILY [facility] Last Admin: 02/22/20 08:17 Dose: 10 mg Documented by: Lorazepam (Ativan) 0.5 mg PO Q6HR PRN PRN Reason: Anxiety Melatonin (Melatonin) 5 mg PO HS [facility] Last Admin: 02/21/20 22:07 Dose: 5 mg Documented by: Pantoprazole Sodium (Protonix) 40 mg IVP BID [facility] Last Admin: 02/22/20 08:17 Dose: 40 mg Documented by: Tamsulosin HCl (Flomax) 0.4 mg PO DAILY [facility] Last Admin: 02/22/20 08:17 Dose: 0.4 mg Documented by: Temazepam (Restoril) 15 mg PO HS PRN PRN Reason: Insomnia Venlafaxine HCl (Effexor Xr) 37.5 mg PO DAILY [facility] Last Admin: 02/22/20 08:17 Dose: 37.5 mg Documented by: Objective - Vital Signs Vital signs: Vital Signs Temp 98.4 F 02/22/20 07:00 Pulse 62 02/22/20 07:00 Resp 18 02/22/20 07:00 BP 128/78 02/22/20 07:00 Pulse Ox 94 L 02/22/20 07:00 Intake & Output 02/21/20 02/22/20 02/22/20 18:59 06:59 18:59 Intake Total 375 885 Output Total 600 1150 700 Balance -225 -265 -700 Intake: Intake, IV Titration 375 825 Amount Dextrose 5%-0.45% NaCl 1, 375 000 ml @ 75 mls/hr IV . [id number] ONE Rx#:[id number] Sodium Chloride 0.9% 1, 825 000 ml @ 75 mls/hr IV . [id number] [facility] Rx#:[id number] Oral 60 Output: Urine 600 1150 700 Other: Voiding Method Diaper Diaper Incontinent Incontinent - Exam Gen: This is a 70-year-old male lying in bed, awake, alert and oriented 3, well-developed, well-nourished, obese. Temp is 98.4F, pulse is 62, respirations are 18, blood pressure is 128/78, oxygen saturation is 94% on room air. HEENT: Head is atraumatic, normocephalic. Pupils equal, round. Sclerae is anicteric. NECK: Supple. No JVD. No lymphadenopathy. No thyromegaly. LUNGS: Breath sounds diminished at the bases with a few scattered rhonchi noted. No intercostal retractions. HEART: S1, S2 are muffled ABDOMEN: Soft. Obese. Bowel sounds are present. No masses. No tenderness. EXTREMITIES: No pedal edema. No calf tenderness. NEUROLOGICAL: Patient is awake, alert and oriented x3. Cranial nerves 2 through 12 are grossly intact. - Labs CBC & Chem 7: 02/22/20 10:10 02/22/20 10:10 Labs: Abnormal Lab Results - Last 24 Hours (Table) 02/21/20 02/21/20 02/22/20 Range/Units 16:30 21:59 10:10 RBC 4.11 L (4.30-5.90) m/uL Hgb 11.6 L (13.0-17.5) gm/dL Hct 38.4 L (39.0-53.0) % MCHC 30.1 L (31.0-37.0) g/dL Sodium (137-145) mmol/L Chloride (98-107) mmol/L Carbon Dioxide (22-30) mmol/L BUN (9-20) mg/dL Glucose (74-99) mg/dL POC Glucose (mg/dL) 126 H 104 H (75-99) mg/dL Calcium (8.4-10.2) mg/dL Total Protein (6.3-8.2) g/dL Albumin (3.5-5.0) g/dL Lipase (23-300) U/L 02/22/20 02/22/20 Range/Units 10:10 11:27 RBC (4.30-5.90) m/uL Hgb (13.0-17.5) gm/dL Hct (39.0-53.0) % MCHC (31.0-37.0) g/dL Sodium 133 L (137-145) mmol/L Chloride 97 L (98-107) mmol/L Carbon Dioxide 32 H (22-30) mmol/L BUN 8 L (9-20) mg/dL Glucose 113 H (74-99) mg/dL POC Glucose (mg/dL) 119 H (75-99) mg/dL Calcium 8.3 L (8.4-10.2) mg/dL Total Protein 5.9 L (6.3-8.2) g/dL Albumin 2.8 L (3.5-5.0) g/dL Lipase 1252 H (23-300) U/L Assessment and Plan Assessment: Abdominal pain with possible acute severe pancreatitis secondary to alcohol, present on admission Hypoglycemia possibly diabetes mellitus type 2, uncontrolled Hyponatremia History of EtOH Increased WBC Possible acute urinary tract infection, present on admission History of CVA, TIA with left-sided weakness Diabetes mellitus type 2 Hypertension Hyperlipidemia History of myocardial infarction History of MRSA history of coronary artery disease, coronary artery bypass grafting History of aneurysm repair obesity with a BMI of 33 Full code Recommendations and discussion: Recommend continue current medications, management, and symptomatic treatment. Patient denies any nausea or vomiting and is tolerating clear liquids. Will increase diet to full liquids and monitor for tolerance. Will repeat a.m. labs along with amylase and lipase as they are trending upwards. Patient states he is passing gas but has not had a bowel movement at this time. Patient to continue on IV ceftriaxone at this time. Instructed the patient to increase activity as tolerated and sit in the chair rather than lying in the bed all day. Due to multiple complex medical issues, prognosis is guarded. Further recommendations to follow. Possible discharge in 24-48 hours.
[2020-02-22 16:35] LABS: Glucose,Whole Blood 117 mg/dL (75-99)
[2020-02-22 20:05] LABS: Glucose,Whole Blood 114 mg/dL (75-99)
[2020-02-22] MEDS: MELATONIN 5 MG TABLET PO SCH (21:36)
[2020-02-22] MEDS: ATORVASTATIN 20 MG TAB PO SCH (21:36)
[2020-02-23 03:43] LABS: Glucose,Whole Blood 108 mg/dL (75-99)
[2020-02-23 07:04] LABS: Glucose,Whole Blood 98 mg/dL (75-99)
[2020-02-23] MEDS: CHOLECALCIFEROL 1,000 UNIT TAB PO SCH (08:49)
[2020-02-23] MEDS: VENLAFAXINE HCL ER 37.5 MG CAP PO SCH (08:49)
[2020-02-23] MEDS: atenoloL 25 MG TAB PO SCH (08:49)
[2020-02-23] MEDS: CLOPIDOGREL 75 MG TAB PO SCH (08:49)
[2020-02-23] MEDS: HEPARIN SODIUM,PORCINE 5,000 UNIT/ML 1 ML VIAL SQ SCH (08:49)
[2020-02-23] MEDS: lisinopriL 10 MG TAB PO SCH (08:49)
[2020-02-23] MEDS: TAMSULOSIN 0.4 MG CAP.ER.24H PO SCH (08:49)
[2020-02-23] MEDS: PANTOPRAZOLE 40 MG/10 ML VIAL IVP SCH (08:49)
[2020-02-23] MEDS: GABAPENTIN 400 MG CAP PO SCH ×2 (08:49→15:40)
[2020-02-23 10:37] LABS: Basophils % (A) 0 %; Eosinophils # (A) 0.4 k/uL (0-0.7); Eosinophils % (A) 3 %; HCT 36.9 % (39.0-53.0); HGB 11.7 gm/dL (13.0-17.5); Hypochromasia Slight; Lymphocytes # (A) 1.8 k/uL (1.0-4.8); Lymphocytes % (A) 18 %; MCH 29.6 pg (25.0-35.0); MCHC 31.7 g/dL (31.0-37.0); MCV 93.6 fL (80.0-100.0); Mean Platelet Volume 7.1; Monocytes # (A) 0.7 k/uL (0-1.0); Monocytes % (A) 7 %; Neutrophils # (A) 7.4 k/uL (1.3-7.7); Neutrophils % (A) 71 %; Platelet Count 258 k/uL (150-450); RBC 3.94 m/uL (4.30-5.90); RDW 13.2 % (11.5-15.5); WBC 10.4 k/uL (3.8-10.6)
[2020-02-23 10:49] LABS: ALT 8 U/L (4-49); AST 16 U/L (17-59); African American GFR (CKD) >90 (>60 ml/min/1.73 sqM); Albumin 2.6 g/dL (3.5-5.0); Alkaline Phosphatase 62 U/L (38-126); Amylase 70 U/L (30-110); Anion Gap 4 mmol/L; Blood Urea Nitrogen 6 mg/dL (9-20); Calcium 8.5 mg/dL (8.4-10.2); Carbon Dioxide 31 mmol/L (22-30); Chloride 99 mmol/L (98-107); Glucose 120 mg/dL (74-99); Non-African American GFR(CKD) >90 (>60 ml/min/1.73 sqM); Potassium 4.4 mmol/L (3.5-5.1); Sodium 134 mmol/L (137-145); Total Bilirubin 0.6 mg/dL (0.2-1.3); Total Protein 5.7 g/dL (6.3-8.2)
[2020-02-23 11:33] LABS: Glucose,Whole Blood 116 mg/dL (75-99)
[2020-02-23 13:12] VITALS: TEMP 97.7
[2020-02-23 15:22] VITALS: BP 124/68; PULSE 60; RESP 17
[2020-02-23 16:23] LABS: Glucose,Whole Blood 119 mg/dL (75-99)
--- NOTE | 2020-02-24 09:19 | P.DS ---
Providers Date of admission: 02/20/20 14:23 Expected date of discharge: 02/23/20 Attending physician: Denia Blevins Primary care physician: [facility] Hospital Course: Final diagnosis Abdominal pain with possible acute severe pancreatitis secondary to alcohol, present on admission Hypoglycemia possibly diabetes mellitus type 2, uncontrolled Hyponatremia History of EtOH Increased WBC Possible acute urinary tract infection, present on admission History of CVA, TIA with left-sided weakness Diabetes mellitus type 2 Hypertension Hyperlipidemia History of myocardial infarction History of MRSA history of coronary artery disease, coronary artery bypass grafting History of aneurysm repair obesity with a BMI of 33 Full code Discharge disposition Patient is being discharged in a stable condition with guarded prognosis to home. Patient will follow-up with [facility] in the outpatient setting on discharge. Patient also instructed to follow-up with Dr. Kelly DOMINGUEZ in the outpatient setting. Patient will continue on a short course of oral antibiotics in the form of Ceftin 500 mg twice daily for the next 3 days and then may discontinue to complete the course. Total time taken is greater than 35 minutes. History of present illness This is a 70-year-old male who was recently admitted with nausea and abdominal pain and was being closely monitored. Patient was exhibiting signs of acute pancreatitis. Patient's lipase was slightly elevated although is trending down today. Patient provided a prescription to follow-up in the outpatient setting for repeat labs to monitor. Patient also instructed to continue with a low fib er diet and advance slowly as tolerated. Patient was initiated on IV antibiotics and will continue with oral antibiotics in the form of Ceftin 500 mg twice daily for the next 3 days to complete the course. Patient instructed to avoid alcohol intake. Patient will also follow-up with [facility] in the outpatient setting. Patient states his abdominal pain is much improved and would like to go home today. Currently no reports of chest pain, worsening shortness of breath, or palpitations. Patient is afebrile. No reports of nausea or vomiting and patient is tolerating diet. Patient will be discharged to home today. On exam vital signs are stable. Temp is 97.7F, pulse is 57, respirations are 16, blood pressure is 122/75, oxygen saturation is 95% on room air. Cardio S1, S2 are muffled. Respiratory system shows diminished breath sounds at the bases with no wheezing or rhonchi noted. Abdomen is soft and nontender. Nervous system shows no focal deficits. Please refer to medication reconciliation sheet for a list of medications. Patient Condition at Discharge: Stable Plan - Discharge Summary Discharge Rx Participant: Yes New Discharge Prescriptions: New Cefuroxime Axetil [Ceftin] 500 mg PO BID 3 Days #6 tab Continue Insulin Glargine,Hum.rec.anlog [Lantus Solostar] 40 unit SQ HS Clopidogrel [Plavix] 75 mg PO DAILY Aspirin EC [Ecotrin Low Dose] 81 mg PO DAILY Melatonin 5 mg PO HS Atenolol [Tenormin] 25 mg PO DAILY ALPRAZolam [Xanax] 0.5 mg PO DAILY PRN PRN Reason: Anxiety Venlafaxine HCl ER [Effexor XR] 37.5 mg PO DAILY Simvastatin [Zocor] 40 mg PO HS Acetaminophen [Tylenol] 325 - 650 mg PO Q6H PRN PRN Reason: Pain Cholecalciferol [Vitamin D3 (25 Mcg = 1000 Iu)] 1,000 unit PO DAILY Gabapentin [Neurontin] 400 mg PO TID Lisinopril [Zestril] 10 mg PO DAILY Omeprazole [PriLOSEC] 20 mg PO DAILY Tamsulosin HCl [Flomax] 0.4 mg PO DAILY Discharge Medication List ALPRAZolam [Xanax] 0.5 mg PO DAILY PRN 04/09/19 [History] Aspirin EC [Ecotrin Low Dose] 81 mg PO DAILY 04/09/19 [History] Atenolol [Tenormin] 25 mg PO DAILY 04/09/19 [History] Clopidogrel [Plavix] 75 mg PO DAILY 04/09/19 [History] Insulin Glargine,Hum.rec.anlog [Lantus Solostar] 40 unit SQ HS 04/09/19 [History] Melatonin 5 mg PO HS 04/09/19 [History] Simvastatin [Zocor] 40 mg PO HS 04/10/19 [History] Venlafaxine HCl ER [Effexor XR] 37.5 mg PO DAILY 04/10/19 [History] Acetaminophen [Tylenol] 325 - 650 mg PO Q6H PRN 02/20/20 [History] Cholecalciferol [Vitamin D3 (25 Mcg = 1000 Iu)] 1,000 unit PO DAILY 02/20/20 [History] Gabapentin [Neurontin] 400 mg PO TID 02/20/20 [History] Lisinopril [Zestril] 10 mg PO DAILY 02/20/20 [History] Omeprazole [PriLOSEC] 20 mg PO DAILY 02/20/20 [History] Tamsulosin HCl [Flomax] 0.4 mg PO DAILY 02/20/20 [History] Cefuroxime Axetil [Ceftin] 500 mg PO BID 3 Days #6 tab 02/23/20 [Rx] Follow up [facility]ment([facility]Ref[facility] Randee Mendoza MD [STAFF PHYSICIAN] - 03/08/20 2:00 pm (with [employer] [employer]) [facility]inic [Primary Care Provider] - 1 Week (office currently busy Please call to make appointment) Ambulatory/Diagnostic Orders: Amylase [LAB.AMB] Time Frame: 2 Days, Location: None Selected Lipase [LAB.AMB] Time Frame: 2 Days, Location: None Selected Patient Instructions/Handouts: Pancreatitis (DC) Activity/Diet/Wound Care/Special Instructions: Activity Limited until follow-up Continue antibiotics until finished Follow up with primary care provider Continue current low fat diet and advance slowly as tolerated Discharge Disposition: HOME WITH HOME HEALTH SERVICES
== END 2020-02-23 16:54 | disposition home health service (06) | DRG 439 ==
LOC: EC 12:42 → 4SSUR 14:23
PROVIDERS: ADMIT Hospitalist; ATTEND Hospitalist
DX: K85.20 Alcohol induced acute pancreatitis without necrosis or infection (principal); E87.1 Hypo-osmolality and hyponatremia; I69.354 Hemiplegia and hemiparesis following cerebral infarction affecting left non-dominant side; N39.0 Urinary tract infection, site not specified; E11.649 Type 2 diabetes mellitus with hypoglycemia without coma; E66.9 Obesity, unspecified; E78.5 Hyperlipidemia, unspecified; I10 Essential (primary) hypertension; I25.10 Atherosclerotic heart disease of native coronary artery without angina pectoris; I25.2 Old myocardial infarction; Z86.79 Personal history of other diseases of the circulatory system; K57.30 Diverticulosis of large intestine without perforation or abscess without bleeding; K31.84 Gastroparesis; Z68.33 Body mass index [BMI] 33.0-33.9, adult; Z11.59 Encounter for screening for other viral diseases; Z79.02 Long term (current) use of antithrombotics/antiplatelets; Z79.82 Long term (current) use of aspirin; Z86.14 Personal history of Methicillin resistant Staphylococcus aureus infection; Z87.891 Personal history of nicotine dependence; Z90.49 Acquired absence of other specified parts of digestive tract; Z95.1 Presence of aortocoronary bypass graft; D72.829 Elevated white blood cell count, unspecified
CPT/HCPCS: 36415; 71045; 74018; 74176; 76705; 80053; 80061; 81001; 82150; 83605; 83690; 85025; 96361; 96374; 99285

== ENCOUNTER 2021-02-24 14:15 | Inpatient (IN) | payer MEDICARE, BC ==
[2021-02-24] MEDS ORDERED: SODIUM CHLORIDE 0.9% 1,000 ML IV STA (14:46)
[2021-02-24 15:50] LABS: Basophils # (A) 0.1 k/uL (0-0.2); Basophils % (A) 1 %; Eosinophils # (A) 0.9 k/uL (0-0.7); Eosinophils % (A) 10 %; HCT 44.5 % (39.0-53.0); HGB 14.8 gm/dL (13.0-17.5); Lymphocytes # (A) 2.6 k/uL (1.0-4.8); Lymphocytes % (A) 30 %; MCH 28.9 pg (25.0-35.0); MCHC 33.3 g/dL (31.0-37.0); MCV 86.9 fL (80.0-100.0); Mean Platelet Volume 6.4; Monocytes # (A) 0.4 k/uL (0-1.0); Monocytes % (A) 5 %; Neutrophils # (A) 4.6 k/uL (1.3-7.7); Neutrophils % (A) 54 %; Platelet Count 269 k/uL (150-450); RBC 5.12 m/uL (4.30-5.90); RDW 13.5 % (11.5-15.5); WBC 8.6 k/uL (3.8-10.6)
[2021-02-24 15:54] LABS: ALT 15 U/L (4-49); AST 27 U/L (17-59); African American GFR (CKD) >90 (>60 ml/min/1.73 sqM); Albumin 4.2 g/dL (3.5-5.0); Alkaline Phosphatase 84 U/L (38-126); Amylase 40 U/L (30-110); Anion Gap 8 mmol/L; Blood Urea Nitrogen 7 mg/dL (9-20); Calcium 9.7 mg/dL (8.4-10.2); Carbon Dioxide 30 mmol/L (22-30); Chloride 99 mmol/L (98-107); Glucose 129 mg/dL (74-99); Lipase 144 U/L (23-300); Non-African American GFR(CKD) 87 (>60 ml/min/1.73 sqM); Partial Thromboplastin Time 25.6 sec (22.0-30.0); Potassium 4.2 mmol/L (3.5-5.1); Prothrombin Time 10.5 sec (9.0-12.0); Sodium 137 mmol/L (137-145); Total Bilirubin 0.5 mg/dL (0.2-1.3); Total Protein 7.8 g/dL (6.3-8.2)
--- NOTE | 2021-02-24 15:57 | XR ---
EXAMINATION TYPE: XR KUB DATE OF EXAM: 02/24/2021 3:52 PM CLINICAL HISTORY: Pain TECHNIQUE: Single supine KUB image of the abdomen is obtained. COMPARISON: None. FINDINGS: Scattered gas is seen in non-distended small bowel loops. Gas and fecal material is seen in non-distended colon. There is no visceromegaly, pneumoperitoneum, or abnormal calcification apprecia myrna. Bilateral hip prostheses are incompletely included. IMPRESSION: Overall nonobstructive bowel gas pattern.
[2021-02-24 15:58] LABS: Appearance,Urine Cloudy (Clear); Bacteria,Urine Occasional /hpf; Bilirubin,Urine Negative (Negative); Blood,Urine Moderate (Negative); Budding Yeast,Urine Few /hpf; Color,Urine Light Yellow; Glucose,Urine (UA) Negative (Negative); Ketones,Urine Negative (Negative); Leukocyte Esterase,Urine Large (Negative); Nitrite,Urine Negative (Negative); PH, Urine 5.5 (5.0-8.0); Protein,Urine Negative (Negative); RBC,Urine 43 /hpf (0-5); Specific Gravity,Urine 1.006 (1.001-1.035); Squamous Epithelial Cell,Urine 1 /hpf (0-4); Urobilinogen,Urine <2.0 mg/dL (<2.0); WBC,Urine >182 /hpf (0-5)
[2021-02-24] MEDS ORDERED: cefTRIAXone IN SWFI 1,000 MG/10 ML SYRINGE IVP STA (16:36)
[2021-02-24] MEDS ORDERED: NALOXONE 0.4 MG/ML 1 ML VIAL IV PRN (16:43)
--- NOTE | 2021-02-24 16:48 | ED ---
General Adult HPI - General Chief complaint: Wound/Laceration Stated complaint: Pressure Ulcers Time Seen by Provider: 02/24/21 14:28 Source: patient, EMS, RN notes reviewed Mode of arrival: EMS Limitations: physical limitation - History of Present Illness Initial comments: Patient is a 71-year-old male that presents to the emergency department complain ing of tissue breakdown on the left side of his leg hip and abdomen. 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 He notes he was home with his will take care of him. He uses a condom catheter. Patient was in no apparent distress or pain. He notes that his noticed some redness and some skin breakdown on the left side of his body. Patient denied any other issues or complaints. He did note that when the nurse was cleaning him up describing motion and motion felt ice on his skin. does report that patient does have intertrigo that they use nystatin 4. He was in no apparent distress or pain while laying in bed during the examination and interview. She denied any chest pain shortness breath headache nausea vomiting diarrhea constipation fever fatigue chills. - Related Data Home Medications Medication Instructions Recorded Confirmed ALPRAZolam [Xanax] 0.5 mg PO DAILY PRN 04/09/19 02/20/20 Aspirin EC [Ecotrin Low Dose] 81 mg PO DAILY 04/09/19 02/20/20 Clopidogrel [Plavix] 75 mg PO DAILY 04/09/19 02/20/20 Insulin Glargine,Hum.rec.anlog 40 unit SQ HS 04/09/19 02/20/20 [Lantus Solostar] Melatonin 5 mg PO HS 04/09/19 02/20/20 atenoloL [Tenormin] 25 mg PO DAILY 04/09/19 02/20/20 Simvastatin [Zocor] 40 mg PO HS 04/10/19 02/20/20 Venlafaxine HCl ER [Effexor XR] 37.5 mg PO DAILY 04/10/19 02/20/20 Acetaminophen [Tylenol] 325 - 650 mg PO Q6H PRN 02/20/20 02/20/20 Cholecalciferol [Vitamin D3 (25 1,000 unit PO DAILY 02/20/20 02/20/20 Mcg = 1000 Iu)] Gabapentin [Neurontin] 400 mg PO TID 02/20/20 02/20/20 Omeprazole [PriLOSEC] 20 mg PO DAILY 02/20/20 02/20/20 Tamsulosin HCl [Flomax] 0.4 mg PO DAILY 02/20/20 02/20/20 lisinopriL [Zestril] 10 mg PO DAILY 02/20/20 02/20/20 Previous Rx's Medication Instructions Recorded Cefuroxime Axetil [Ceftin] 500 mg PO BID 3 Days #6 tab 02/23/20 Allergies Allergy/AdvReac Type Severity Reaction Status Date / Time No Known Allergies Allergy Verified 02/20/20 14:32 Review of Systems ROS Statement: Those systems with pertinent positive or pertinent negative responses have been documented in the HPI. ROS Other: All systems not noted in ROS Statement are negative. Past Medical History Past Medical History: CVA/TIA, Diabetes Mellitus, Hyperlipidemia, Hypertension, Myocardial Infarction ([place]) Additional Past Medical History / Comment(s): CVA July 2018, states he had aneurysm unsure exactly where. Last Myocardial Infarction Date:: 1998 History of Any Multi-Drug Resistant Organisms: MRSA Date of last positivie culture/infection: 04/10/19 MDRO Source:: left thigh Past Surgical History: Appendectomy, Cholecystectomy, Coronary Bypass/CABG, Orthopedic Surgery Additional Past Surgical History / Comment(s): ANEURYSM REPAIR Past Psychological History: PTSD Smoking Status: Former smoker Past Alcohol Use History: None Reported Past Drug Use History: None Reported - Past Family History Father Family Medical History: No Reported History General Exam Limitations: physical limitation General appearance: alert, in no apparent distress, obese Head exam: Present: atraumatic, normocephalic, normal inspection Eye exam: Present: normal appearance, PERRL, EOMI. Absent: scleral icterus, conjunctival injection, periorbital swelling Neck exam: Present: normal inspection Respiratory exam: Present: normal lung sounds bilaterally. Absent: respiratory distress, wheezes, rales, rhonchi, stridor Cardiovascular Exam: Present: regular rate, normal rhythm, normal heart sounds. Absent: systolic murmur, diastolic murmur, rubs, gallop, clicks GI/Abdominal exam: Present: soft, normal bowel sounds. Absent: distended, tenderness, guarding, rebound, rigid Extremities exam: Present: normal inspection, full ROM (Of the right upper and lower extremity, patient has left-sided hemiparesis.) Neurological exam: Present: alert, oriented X3 Psychiatric exam: Present: normal affect, normal mood Skin exam: Present: warm, dry, intact, normal color, other (Beginning stages of deep tissue pressure injury ranging from just proximal to the left knee up to the left mid back, several areas of skin breakdown. [place] scaly skin noted to the upper mid back.). Absent: rash Course Vital Signs 02/24/21 02/24/21 14:19 15:30 Temperature 97.8 F Pulse Rate 96 87 Respiratory 18 18 Rate Blood Pressure 145/63 114/74 O2 Sat by Pulse 97 96 Oximetry Medical Decision Making - Medical Decision Making Patient is a 71-year-old male complaining of left-sided pressure ulcers and deep tissue pressure injury. Labs, KUB, 1 L normal saline ordered. Labs unremarkable. Urinalysis shows many white blood cells and urine. Case discussed with Dr. Gaitan, patient will be admitted to inpatient or unsafe discharge. Dr. Ryan consulted and will accept the admit with infectious disease on consult. Ancef ordered. - Lab Data Result diagrams: 02/24/21 15:24 02/24/21 15:24 Lab Results 02/24/21 02/24/21 02/24/21 Range/Units 04:53 15:24 15:24 WBC 8.6 (3.8-10.6) k/uL RBC 5.12 (4.30-5.90) m/uL Hgb 14.8 (13.0-17.5) gm/dL Hct 44.5 (39.0-53.0) % MCV 86.9 (80.0-100.0) fL MCH 28.9 (25.0-35.0) pg MCHC 33.3 (31.0-37.0) g/dL RDW 13.5 (11.5-15.5) % Plt Count 269 (150-450) k/uL MPV 6.4 Neutrophils % 54 % Lymphocytes % 30 % Monocytes % 5 % Eosinophils % 10 % Basophils % 1 % Neutrophils # 4.6 (1.3-7.7) k/uL Lymphocytes # 2.6 (1.0-4.8) k/uL Monocytes # 0.4 (0-1.0) k/uL Eosinophils # 0.9 H (0-0.7) k/uL Basophils # 0.1 (0-0.2) k/uL PT 10.5 (9.0-12.0) sec INR 1.0 (<1.2) APTT 25.6 (22.0-30.0) sec Sodium (137-145) mmol/L Potassium (3.5-5.1) mmol/L Chloride (98-107) mmol/L Carbon Dioxide (22-30) mmol/L Anion Gap mmol/L BUN (9-20) mg/dL Creatinine (0.66-1.25) mg/dL Est GFR (CKD-EPI)AfAm (>60 ml/min/1.73 sqM) Est GFR (CKD-EPI)NonAf (>60 ml/min/1.73 sqM) Glucose (74-99) mg/dL Plasma Lactic Acid Deangelo (0.7-2.0) mmol/L Calcium (8.4-10.2) mg/dL Total Bilirubin (0.2-1.3) mg/dL AST (17-59) U/L ALT (4-49) U/L Alkaline Phosphatase (38-126) U/L Troponin I (0.000-0.034) ng/mL Total Protein (6.3-8.2) g/dL Albumin (3.5-5.0) g/dL Amylase (30-110) U/L Lipase (23-300) U/L Urine Color Light Yellow Urine Appearance Cloudy (Clear) Urine pH 5.5 (5.0-8.0) Ur Specific [place] 1.006 (1.001-1.035) Urine Protein Negative (Negative) Urine Glucose (UA) Negative (Negative) Urine Ketones Negative (Negative) Urine Blood Moderate H (Negative) Urine Nitrite Negative (Negative) Urine Bilirubin Negative (Negative) Urine Urobilinogen <2.0 (<2.0) mg/dL Ur Leukocyte Esterase Large H (Negative) Urine RBC 43 H (0-5) /hpf Urine WBC >182 H (0-5) /hpf Ur Squamous Epith Cells 1 (0-4) /hpf Urine Bacteria Occasional H (None) /hpf Urine Yeast (Budding) Few H (None) /hpf 02/24/21 02/24/21 02/24/21 Range/Units 15:24 15:24 15:24 WBC (3.8-10.6) k/uL RBC (4.30-5.90) m/uL Hgb (13.0-17.5) gm/dL Hct (39.0-53.0) % MCV (80.0-100.0) fL MCH (25.0-35.0) pg MCHC (31.0-37.0) g/dL RDW (11.5-15.5) % Plt Count (150-450) k/uL MPV Neutrophils % % Lymphocytes % % Monocytes % % Eosinophils % % Basophils % % Neutrophils # (1.3-7.7) k/uL Lymphocytes # (1.0-4.8) k/uL Monocytes # (0-1.0) k/uL Eosinophils # (0-0.7) k/uL Basophils # (0-0.2) k/uL PT (9.0-12.0) sec INR (<1.2) APTT (22.0-30.0) sec Sodium 137 (137-145) mmol/L Potassium 4.2 (3.5-5.1) mmol/L Chloride 99 (98-107) mmol/L Carbon Dioxide 30 (22-30) mmol/L Anion Gap 8 mmol/L BUN 7 L (9-20) mg/dL Creatinine 0.84 (0.66-1.25) mg/dL Est GFR (CKD-EPI)AfAm >90 (>60 ml/min/1.73 sqM) Est GFR (CKD-EPI)NonAf 87 (>60 ml/min/1.73 sqM) Glucose 129 H (74-99) mg/dL Plasma Lactic Acid [place] 1.6 (0.7-2.0) mmol/L Calcium 9.7 (8.4-10.2) mg/dL Total Bilirubin 0.5 (0.2-1.3) mg/dL AST 27 (17-59) U/L ALT 15 (4-49) U/L Alkaline Phosphatase 84 (38-126) U/L Troponin I <0.012 (0.000-0.034) ng/mL Total Protein 7.8 (6.3-8.2) g/dL Albumin 4.2 (3.5-5.0) g/dL Amylase 40 (30-110) U/L Lipase 144 (23-300) U/L Urine Color Urine Appearance (Clear) Urine pH (5.0-8.0) Ur Specific [place] (1.001-1.035) Urine Protein (Negative) Urine Glucose (UA) (Negative) Urine Ketones (Negative) Urine Blood (Negative) Urine Nitrite (Negative) Urine Bilirubin (Negative) Urine Urobilinogen (<2.0) mg/dL Ur Leukocyte Esterase (Negative) Urine RBC (0-5) /hpf Urine WBC (0-5) /hpf Ur Squamous Epith Cells (0-4) /hpf Urine Bacteria (None) /hpf Urine Yeast (Budding) (None) /hpf - Radiology Data Radiology results: report reviewed, image reviewed KUB: Nonobstructive bowel gas pattern. Disposition Clinical Impression: Pressure injury of deep tissue of buttock, Pressure injury of deep tissue of back, Pressure ulcer Disposition: ADMITTED IP TO THIS [facility] Condition: Stable Is patient prescribed a controlled substance at d/c from ED?: No Referrals: Pedro Vazquez MD [Primary Care Provider] - 1-2 days Time of Disposition: 16:48
[2021-02-24] MEDS: SODIUM CHLORIDE 0.9% 1,000 ML IV SCH (16:53)
[2021-02-24] MEDS ORDERED: ALPRAZolam 0.5 MG TAB PO PRN (20:26)
[2021-02-24] MEDS ORDERED: CYCLOBENZAPRINE 10 MG TAB PO PRN (20:26)
[2021-02-24] MEDS ORDERED: GABAPENTIN 400 MG CAP PO PRN (20:26)
[2021-02-24] MEDS: INSULIN ASPART (NovoLOG) 100 UNIT/ML VIAL SQ SCH (20:42)
[2021-02-24 20:45] LABS: Glucose,Whole Blood 89 mg/dL (75-99)
[2021-02-24] MEDS: MELATONIN 5 MG TABLET PO SCH (21:59)
[2021-02-24] MEDS: TAMSULOSIN 0.4 MG CAP.ER.24H PO SCH (21:59)
[2021-02-24] MEDS: ATORVASTATIN 20 MG TAB PO SCH (21:59)
[2021-02-25 06:47] LABS: Glucose,Whole Blood 102 mg/dL (75-99)
--- NOTE | 2021-02-25 07:48 | CONS ---
CONSULTATION DATE OF SERVICE: 02/24/2021 REASON FOR CONSULTATION: Left gluteal cellulitis and UTI. HISTORY OF PRESENT ILLNESS: The patient is a 71 -year-old male with a past medical history significant for CVA with left-sided hemiparesis. The patient has been brought into the ER for evaluation of redness and skin breakdown the left side of his chronic that apparently has been noticed the day before presentation to hospital. The patient mentioned this had been going off for the last few days. Denies significant pain. Occasional agitation and itching and the patient has been scratching it more. There is no drainage from it. The patient denies high-grade fever. No chest pain, shortness of breath, cough. No nausea, vomiting or any diarrhea. With these symptoms, the patient was evaluated by the ER physician. On arrival to the ER, the patient was afebrile. The patient did have a normal white count. Creatinine was normal. Liver enzymes are normal. Amylase and lipase were normal. The patient did have a positive UA with large leukocyte esterase, more than 2 WBCs. The patient was started on cefazolin and has been admitted to the hospital. Infectious Disease was consulted for further management of antibiotic therapy. The patient did have KUB x-ray which shows overall nonobstructive bowel gas pattern. REVIEW OF SYSTEMS: Positive points have been mentioned in HPI. Rest of the systems are negative. PAST MEDICAL HISTORY: CVA, TIA, diabetes mellitus, hypertension, hyperlipidemia and AL. PAST SURGICAL HISTORY: Appendectomy, cholecystectomy, coronary artery bypass grafting. SOCIAL HISTORY: Remote history of smoking. No drinking or drug use, , lives with his . FAMILY HISTORY: No pertinent findings noticed. ALLERGIES: No known drug allergies. MEDICATIONS: The patient is currently on Xanax, aspirin, Tenormin, Lipitor, cefazolin 1 g q.8h, Plavix, Flexeril, Neurontin, NovoLog, melatonin, Narcan, Protonix, Flomax and Effexor. PHYSICAL EXAMINATION: Blood pressure is a 142/89 with a pulse of 90, temperature 97.5. He is 93% on room air. GENERAL DESCRIPTION: The patient is an elderly male lying in bed in no distress. No tachypnea or accessory muscles of respiration use. HEENT: Examination shows slight pallor. No scleral icterus. Oral mucous membranes dry. NECK: Trachea central. No thyromegaly. LUNGS unlabored breathing. Clear to auscultation anteriorly. HEART: S1-S2 regular rate. ABDOMEN: Soft, no tenderness. No guarding. No rigidity. EXTREMITIES: No edema of the feet. Examination the left gluteal area: Patient did have a superficial scratch blanch[place], superficial ulceration. Some erythema. No significant warmth or drainage. NEUROLOGIC: The patient is awake, alert, oriented times three. Mood and affect normal. LABS: Hemoglobin 14.1, white count 8.6, BUN of 7, creatinine 0.48. Lytes were normal. Liver enzymes were normal. Urine is positive. DIAGNOSTIC IMPRESSION AND PLAN: 1. Patient admitted to the hospital with an erythematous rash to his left gluteal area in this patient who did have urinary incontinence and did have a cutaneous candidiasis likely representing cutaneous candidiasis of the left gluteal area and not behaving as bacterial cellulitis. 2. Did have a positive UA concerning for a symptomatic urinary tract infection likely from enteric Gram-negative pathogen. PLAN: 1. Discontinue cefazolin. 2. Start the patient on Rocephin 2 grams IV piggyback daily. 3. Mycolog cream to the left gluteal area, apply twice a day. 4. We will follow on clinical condition and further adjust medication if needed. Thank you for this consultation. Will follow this patient along with you. MMODL / IJN: [id number] /
[2021-02-25] MEDS: INSULIN ASPART (NovoLOG) 100 UNIT/ML VIAL SQ SCH ×4 (08:08→22:15)
[2021-02-25] MEDS: INSULIN DETEMIR (LEVEMIR) 100 UNIT/ML SYR SQ SCH (08:16)
[2021-02-25] MEDS: atenoloL 25 MG TAB PO SCH (08:17)
[2021-02-25] MEDS: PANTOPRAZOLE 40 MG TABLET PO SCH (08:17)
[2021-02-25] MEDS: lisinopriL 10 MG TAB PO SCH (08:17)
[2021-02-25] MEDS: TAMSULOSIN 0.4 MG CAP.ER.24H PO SCH ×2 (08:17→22:14)
[2021-02-25] MEDS: VENLAFAXINE HCL ER 37.5 MG CAP PO SCH (08:17)
[2021-02-25] MEDS: CLOPIDOGREL 75 MG TAB PO SCH (08:17)
[2021-02-25] MEDS: ASPIRIN 81 MG PO SCH (08:17)
[2021-02-25] MEDS: SODIUM CHLORIDE 0.9% 1,000 ML IV SCH ×2 (08:30→16:48)
[2021-02-25] MEDS: NYSTAT-TRIAMCIN 100,000-0.1 UNIT/GM-% CREAM 30 GM TUBE TOPICAL SCH ×2 (10:06→22:14)
[2021-02-25 10:17] VITALS: BMI 33.0
[2021-02-25 11:33] LABS: Glucose,Whole Blood 135 mg/dL (75-99)
[2021-02-25 16:45] LABS: Glucose,Whole Blood 76 mg/dL (75-99)
--- NOTE | 2021-02-25 16:55 | P.HPIM ---
History of Present Illness H&P Date: 02/25/21 Chief Complaint: Redness of the skin History of presenting complaint: This is a pleasant 71-year-old patient, follows with visiting physicians Dr. Vazquez. Chronic stable medical conditions conditions include diabetes, hypertension, hyperlipidemia, coronary artery disease with bypass, stroke in 2018 with left-sided weakness. Patient needs full assistance from the bed to the chair. Patient has control of his bowels and has a condom catheter. Patient noticed some redness and slight breakdown of skin on the left posterior part of the body. Patient denies any pain. Patient does use nystatin for fungal infection. Patient otherwise comfortable. Denies any fever and chills. 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 No alcohol. . Ex-smoker Family history: Reviewed, noncontributory to presentation Physical examination: VITAL SIGNS: 97.8, 73, 18, 112/71, 97% on room air GENERAL: [BMI 33, laying in bed, comfortable. EYES: Pupils equal. Conjunctiva normal. HEENT: External appearance of nose and ears normal, oral cavity grossly normal. NECK: JVD not raised; masses not palpable. HEART: First and second heart sounds are normal; no edema. LUNGS: Respiratory rate normal; decreased breath sounds. ABDOMEN: Soft, nontender, liver spleen not palpable, no masses palpable. PSYCH: Alert and oriented x3; mood and affect normal. NEUROLOGICAL: [Cranial nerves grossly intact; no facial asymmetry, power 1/5 on the left side. Decreased sensation DERMATOLOGICAL: Redness to left gluteal area and evidence of cutaneous candidiasis in the gluteal area. LYMPHATICS: No lymph nodes palpable in the axilla and neck. INVESTIGATIONS, reviewed in the clinical context: WBC is 8.6 hemoglobin 14.8 platelets 269 potassium 4.2 creatinine 0.8 Coronavirus [PCR] not detected UA positive for leukoesterase, WBC Assessment and plan: -Possible left gluteal area cellulitis, acute IV ceftriaxone -Possible acute UTI with cystitis secondary to condom catheter IV ceftriaxone -Cutaneous candidiasis Mycolog topical -Obesity BMI 33 Weight loss measures -Left hemiparesis from a prior stroke Patient will need assistance with activities -Hyperlipidemia Continue Zocor -Chronic insomnia for medical conditions On melatonin -GERD On Prilosec -Hypertension On Zestril and Tenormin -BPH On Flomax -Diabetes mellitus type 2, chronically on insulin Follow Accu-Cheks -Anxiety depression Continue on Effexor and Xanax Consultation was made to ID. Started IV ceftriaxone and Mycolog cream. Home medications and resume. IV fluids. Care was discussed with the patient questions answered. Past Medical History Past Medical History: CVA/TIA, Diabetes Mellitus, Hyperlipidemia, Hypertension, Myocardial Infarction ([place]) Additional Past Medical History / Comment(s): CVA July 2018, states he had aneurysm unsure exactly where. Last Myocardial Infarction Date:: 1998 History of Any Multi-Drug Resistant Organisms: MRSA Date of last positivie culture/infection: 04/10/19 MDRO Source:: left thigh Past Surgical History: Appendectomy, Cholecystectomy, Coronary Bypass/CABG, Orthopedic Surgery Additional Past Surgical History / Comment(s): ANEURYSM REPAIR Past Anesthesia/Blood Transfusion Reactions: No Reported Reaction Past Psychological History: Anxiety, Depression, PTSD Additional Psychological History / Comment(s): and lives in the family home with the and family members. Moved from [place]. 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 No tobacco use. No experience. No recent travel. Pet dog in the home Smoking Status: Former smoker Past Alcohol Use History: None Reported Past Drug Use History: None Reported - Past Family History Father Family Medical History: No Reported History Medications and Allergies Home Medications Medication Instructions Recorded Confirmed Type ALPRAZolam [Xanax] 0.5 mg PO DAILY PRN 04/09/19 02/24/21 History Aspirin EC [Ecotrin Low Dose] 81 mg PO DAILY 04/09/19 02/24/21 History Clopidogrel [Plavix] 75 mg PO DAILY 04/09/19 02/24/21 History Insulin Glargine,Hum.rec.anlog 40 unit SQ DAILY 04/09/19 02/24/21 History [Lantus Solostar] Melatonin 15 mg PO HS 04/09/19 02/24/21 History atenoloL [Tenormin] 25 mg PO DAILY 04/09/19 02/24/21 History Simvastatin [Zocor] 40 mg PO HS 04/10/19 02/24/21 History Venlafaxine HCl ER [Effexor XR] 37.5 mg PO DAILY 04/10/19 02/24/21 History Acetaminophen [Tylenol] 325 mg PO DAILY PRN 02/20/20 02/24/21 History Gabapentin [Neurontin] 400 mg PO TID PRN 02/20/20 02/24/21 History Omeprazole [PriLOSEC] 20 mg PO DAILY 02/20/20 02/24/21 History Tamsulosin HCl [Flomax] 0.4 mg PO BID 02/20/20 02/24/21 History lisinopriL [Zestril] 10 mg PO DAILY 02/20/20 02/24/21 History Cyclobenzaprine [Flexeril] 10 mg PO DAILY PRN 02/24/21 02/24/21 History Levofloxacin [Levaquin] 500 mg PO DAILY 02/24/21 02/24/21 History Nitroglycerin Sl Tabs [Nitrostat] 0.4 mg SUBLINGUAL Q5M PRN 02/24/21 02/24/21 History Allergies Allergy/AdvReac Type Severity Reaction Status Date / Time No Known Allergies Allergy Verified 02/24/21 17:27 Physical Exam Vitals: Vital Signs Temp Pulse Pulse Resp BP BP Pulse Ox 02/25/21 07:15 97.8 F 73 18 112/71 97 02/25/21 01:30 97.9 F 86 135/82 97 02/24/21 18:45 97.5 F L 93 142/89 96 02/24/21 17:59 89 18 101/77 97 02/24/21 16:45 87 18 119/85 96 02/24/21 15:30 87 18 114/74 96 02/24/21 14:19 97.8 F 96 18 145/63 97 Intake and Output 02/24/21 02/25/21 02/25/21 22:59 06:59 14:59 Output Total 400 250 Balance -400 -250 Output: Urine 400 250 Other: Weight 104.326 kg 104.326 kg Results CBC & Chem 7: 02/24/21 15:24 02/24/21 15:24 Labs: Abnormal Lab Results - Last 24 Hours (Table) 02/24/21 02/24/2102/24/21 Range/Units 04:53 15:24 15:24 Eosinophils # 0.9 H (0-0.7) k/uL BUN 7 L (9-20) mg/dL Glucose 129 H (74-99) mg/dL POC Glucose (mg/dL) (75-99) mg/dL Urine Blood Moderate H (Negative) Ur Leukocyte Esterase Large H (Negative) Urine RBC 43 H (0-5) /hpf Urine WBC >182 H (0-5) /hpf Urine Bacteria Occasional H (None) /hpf Urine Yeast (Budding) Few H (None) /hpf 02/25/21 Range/Units 06:45 Eosinophils # (0-0.7) k/uL BUN (9-20) mg/dL Glucose (74-99) mg/dL POC Glucose (mg/dL) 102 H (75-99) mg/dL Urine Blood (Negative) Ur Leukocyte Esterase (Negative) Urine RBC (0-5) /hpf Urine WBC (0-5) /hpf Urine Bacteria (None) /hpf Urine Yeast (Budding) (None) /hpf Microbiology - Last 24 Hours (Table) 02/24/21 04:53 Urine Culture - Preliminary Urine,Clean Catch Thrombosis Risk Factor Assmnt - Choose All That Apply Each Risk Factor Represents 2 Points: Age 61-74 years, Patient confined to bed Thrombosis Risk Factor Assessment Total Risk Factor Score: 4 Thrombosis Risk Factor Assessment Level: Moderate Risk
[2021-02-25 21:01] LABS: Glucose,Whole Blood 86 mg/dL (75-99)
[2021-02-25] MEDS: MELATONIN 5 MG TABLET PO SCH (22:14)
[2021-02-25] MEDS: ATORVASTATIN 20 MG TAB PO SCH (22:14)
[2021-02-25] MEDS ORDERED: NYSTATIN 100,000UNIT/GM CREAM 30 GM TUBE TOPICAL ONE (23:59)
[2021-02-25] MEDS ORDERED: TRIAMCINOLONE 0.1% CREAM 80 GM TUBE TOPICAL ONE (23:59)
--- NOTE | 2021-02-26 00:15 | PN ---
PROGRESS NOTE DATE OF SERVICE: 02/25/2021. REASON FOR FOLLOWUP: Left gluteal area cellulitis and UTI. INTERVAL HISTORY: Patient is afebrile. The patient did mention overall pain and discomfort to the left leg has decreased and mentioned he is healing. The patient denies having any chest pain, shortness of breath or cough. No abdominal pain, no diarrhea. PHYSICAL EXAMINATION: Blood pressure 101/63 with a pulse of 61, temperature 97.4, 95% on room air. The patient is an elderly male lying in bed, in no distress. RESPIRATORY SYSTEM: Unlabored breathing, clear to auscultation anteriorly. HEART: S1, S2. Regular rate and rhythm. ABDOMEN: Soft, no tenderness. Left gluteal area swelling has decreased. LABS: Culture so far pending. DIAGNOSTIC IMPRESSION AND PLAN: Patient admitted to the hospital with pain and discomfort to the left gluteal area with concern for cellulitis, more with a fungal dermatitis, also with urinary tract infection. Patient is currently on Mycolog cream and Rocephin. Finish therapy. To continue with Mycolog cream for a week along with the oral Ceftin. Plan of care was discussed with the admitting physician. MMODL / AMISHN: [id number] /
[2021-02-26 07:04] LABS: Glucose,Whole Blood 77 mg/dL (75-99)
[2021-02-26] MEDS: INSULIN ASPART (NovoLOG) 100 UNIT/ML VIAL SQ SCH ×2 (07:21→12:07)
[2021-02-26] MEDS: PANTOPRAZOLE 40 MG TABLET PO SCH (08:18)
[2021-02-26] MEDS: atenoloL 25 MG TAB PO SCH (08:18)
[2021-02-26] MEDS: ASPIRIN 81 MG PO SCH (08:18)
[2021-02-26] MEDS: CLOPIDOGREL 75 MG TAB PO SCH (08:19)
[2021-02-26] MEDS: lisinopriL 10 MG TAB PO SCH (08:19)
[2021-02-26] MEDS: NYSTAT-TRIAMCIN 100,000-0.1 UNIT/GM-% CREAM 30 GM TUBE TOPICAL SCH (08:19)
[2021-02-26] MEDS: VENLAFAXINE HCL ER 37.5 MG CAP PO SCH (08:19)
[2021-02-26] MEDS: TAMSULOSIN 0.4 MG CAP.ER.24H PO SCH (08:19)
[2021-02-26] MEDS: SODIUM CHLORIDE 0.9% 1,000 ML IV SCH (08:24)
[2021-02-26] MEDS: INSULIN DETEMIR (LEVEMIR) 100 UNIT/ML SYR SQ SCH (08:33)
[2021-02-26 08:39] VITALS: BP 105/62; PULSE 67; RESP 17; TEMP 97.4
[2021-02-26 12:07] LABS: Glucose,Whole Blood 84 mg/dL (75-99)
--- NOTE | 2021-02-26 15:41 | P.DS ---
Providers Date of admission: 02/24/21 15:35 Expected date of discharge: 02/26/21 Attending physician: Joselito Ryan Consults: 02/24/21 16:43 Consult Physician Stat Consulting Provider: Elbert Talamantes Consult Reason/Comments: pressure ulcer Do you want consulting provider notified?: Yes Primary care physician: Pedro Vazquez MD Hospital Course: Chief Complaint: Redness of the skin History of presenting complaint: This is a pleasant 71-year-old patient, follows with visiting physicians Dr. Vazquez. Chronic stable medical conditions conditions include diabetes, hypertension, hyperlipidemia, coronary artery disease with bypass, stroke in 2018 with left-sided weakness. Patient needs full assistance from the bed to the chair. Patient has control of his bowels and has a condom catheter. Patient noticed some redness and slight breakdown of skin on the left posterior part of the body. Patient denies any pain. Patient does use nystatin for funga l infection. Patient otherwise comfortable. Denies any fever and chills. Appetite is fair Admitted with left gluteal area cellulitis and cutaneous candidiasis. Patient started IV ceftriaxone and Mycolog cream. Today: Doing better. Cleared by ID to be discharged home. Care was discussed with the patient. Questions answered. Patient completed a course of oral Ceftin and Mycolog cream. Consultation: Dr. 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 No alcohol. . Ex-smoker Family history: Reviewed, noncontributory to presentation Physical examination: VITAL SIGNS: 97.4, 67, 17, 105/62, 96% room air GENERAL: laying in bed, comfortable. EYES: Pupils equal. Conjunctiva normal. NECK: JVD not raised; masses not palpable. HEART: First and second heart sounds are normal; no edema. LUNGS: Respiratory rate normal; decreased breath sounds. ABDOMEN: Soft, nontender, liver spleen not palpable, no masses palpable. PSYCH: Alert and oriented x3; mood and affect normal. NEUROLOGICAL: [Cranial nerves grossly intact; no facial asymmetry, power 1/5 on the left side. Decreased sensation DERMATOLOGICAL: Redness to left gluteal area and evidence of cutaneous candidiasis in the gluteal area. INVESTIGATIONS, reviewed in the clinical context: WBC is 8.6 hemoglobin 14.8 platelets 269 potassium 4.2 creatinine 0.8 Coronavirus [PCR] not detected UA positive for leukoesterase, WBC Assessment and plan: -Possible left gluteal area cellulitis, acute IV ceftriaxone. Changed to Ceftin twice daily for 7 days -Possible acute UTI with cystitis secondary to condom catheter IV ceftriaxone. She changed to Ceftin -Cutaneous candidiasis Mycolog topical -Obesity BMI 33 Weight loss measures -Left hemiparesis from a prior stroke Patient will need assistance with activities -Hyperlipidemia Continue Zocor -Chronic insomnia for medical conditions On melatonin -GERD On Prilosec -Hypertension On Zestril and Tenormin -BPH On Flomax -Diabetes mellitus type 2, chronically on insulin Follow Accu-Cheks -Anxiety depression Continue on Effexor and Xanax Disposition: Home Patient Condition at Discharge: Stable Plan - Discharge Summary Discharge Rx Participant: Yes New Discharge Prescriptions: New Cefuroxime Axetil [Ceftin] 500 mg PO BID #14 tab Nystatin/Triamcin Cream [Mycolog 100,000-0.1 Unit/gm-% Cream] 1 applic TOPICAL BID #1 applic Continue Insulin Glargine,Hum.rec.anlog [Lantus Solostar] 40 unit SQ DAILY Clopidogrel [Plavix] 75 mg PO DAILY Aspirin EC [Ecotrin Low Dose] 81 mg PO DAILY Melatonin 15 mg PO HS atenoloL [Tenormin] 25 mg PO DAILY ALPRAZolam [Xanax] 0.5 mg PO DAILY PRN PRN Reason: Anxiety Venlafaxine HCl ER [Effexor XR] 37.5 mg PO DAILY Simvastatin [Zocor] 40 mg PO HS Acetaminophen [Tylenol] 325 mg PO DAILY PRN PRN Reason: Pain Gabapentin [Neurontin] 400 mg PO TID PRN PRN Reason: Pain Omeprazole [PriLOSEC] 20 mg PO DAILY Tamsulosin HCl [Flomax] 0.4 mg PO BID Nitroglycerin Sl Tabs [Nitrostat] 0.4 mg SUBLINGUAL Q5M PRN PRN Reason: Chest Pain Cyclobenzaprine [Flexeril] 10 mg PO DAILY PRN PRN Reason: Muscle Pain Changed lisinopriL [Zestril] 10 mg PO HS #0 Discontinued Levofloxacin [Levaquin] 500 mg PO DAILY Discharge Medication List ALPRAZolam [Xanax] 0.5 mg PO DAILY PRN 04/09/19 [History] Aspirin EC [Ecotrin Low Dose] 81 mg PO DAILY 04/09/19 [History] Clopidogrel [Plavix] 75 mg PO DAILY 04/09/19 [History] Insulin Glargine,Hum.rec.anlog [Lantus Solostar] 40 unit SQ DAILY 04/09/19 [History] Melatonin 15 mg PO HS 04/09/19 [History] atenoloL [Tenormin] 25 mg PO DAILY 04/09/19 [History] Simvastatin [Zocor] 40 mg PO HS 04/10/19 [History] Venlafaxine HCl ER [Effexor XR] 37.5 mg PO DAILY 04/10/19 [History] Acetaminophen [Tylenol] 325 mg PO DAILY PRN 02/20/20 [History] Gabapentin [Neurontin] 400 mg PO TID PRN 02/20/20 [History] Omeprazole [PriLOSEC] 20 mg PO DAILY 02/20/20 [History] Tamsulosin HCl [Flomax] 0.4 mg PO BID 02/20/20 [History] Cyclobenzaprine [Flexeril] 10 mg PO DAILY PRN 02/24/21 [History] Nitroglycerin Sl Tabs [Nitrostat] 0.4 mg SUBLINGUAL Q5M PRN 02/24/21 [History] Cefuroxime Axetil [Ceftin] 500 mg PO BID #14 tab 02/26/21 [Rx] Nystatin/Triamcin Cream [Mycolog 100,000-0.1 Unit/gm-% Cream] 1 applic TOPICAL BID #1 applic 02/26/21 [Rx] lisinopriL [Zestril] 10 mg PO HS #0 02/26/21 [Rx] Follow up Appointment(s)/Referral(s): Pedro Vazquez MD [Primary Care Provider] - 1-2 days Patient Instructions/Handouts: Pressure Injury (DC) Discharge Disposition: HOME SELF-CARE
== END 2021-02-26 13:30 | disposition home or self-care (01) | DRG 603 ==
LOC: EC 14:15 → 4SSUR 15:35
PROVIDERS: ADMIT Hospitalist; ATTEND Hospitalist
DX: L03.317 Cellulitis of buttock (principal); T83.518A Infection and inflammatory reaction due to other urinary catheter, initial encounter; I69.354 Hemiplegia and hemiparesis following cerebral infarction affecting left non-dominant side; N30.00 Acute cystitis without hematuria; L89.106 Pressure-induced deep tissue damage of unspecified part of back; L89.306 Pressure-induced deep tissue damage of unspecified buttock; B37.2 Candidiasis of skin and nail; E11.9 Type 2 diabetes mellitus without complications; E66.9 Obesity, unspecified; Z68.33 Body mass index [BMI] 33.0-33.9, adult; I10 Essential (primary) hypertension; Z79.4 Long term (current) use of insulin; Z20.822 Contact with and (suspected) exposure to COVID-19; E78.5 Hyperlipidemia, unspecified; I25.10 Atherosclerotic heart disease of native coronary artery without angina pectoris; F43.10 Post-traumatic stress disorder, unspecified; F41.8 Other specified anxiety disorders; K21.9 Gastro-esophageal reflux disease without esophagitis; N40.1 Benign prostatic hyperplasia with lower urinary tract symptoms; N39.498 Other specified urinary incontinence; F51.04 Psychophysiologic insomnia; I25.2 Old myocardial infarction; Z79.82 Long term (current) use of aspirin; Z79.02 Long term (current) use of antithrombotics/antiplatelets; Z79.899 Other long term (current) drug therapy; Z86.14 Personal history of Methicillin resistant Staphylococcus aureus infection; Z90.49 Acquired absence of other specified parts of digestive tract; Z87.19 Personal history of other diseases of the digestive system; Z95.1 Presence of aortocoronary bypass graft; Z86.79 Personal history of other diseases of the circulatory system; Z87.891 Personal history of nicotine dependence; Z98.890 Other specified postprocedural states
CPT/HCPCS: 36415; 74018; 80053; 81001; 82150; 83605; 83690; 84484; 85025; 85610; 85730; 87040; 87077; 87086; 87186; 87635; 93799; 99285

== ENCOUNTER 2021-06-05 07:29 | Inpatient (IN) | payer MEDICARE, BC ==
[2021-06-05] MEDS ORDERED: SODIUM CHLORIDE 0.9% 500 ML 500 ML IV ONE (07:41)
--- NOTE | 2021-06-05 07:46 | ED ---
General Adult HPI - General Chief complaint: Altered Mental Status Stated complaint: altered mental status Time Seen by Provider: 06/05/21 07:30 Source: patient, EMS, RN notes reviewed, old records reviewed Mode of arrival: EMS Limitations: no limitations - History of Present Illness Initial comments: This is a 71-year-old male who presents emergency Department for altered mental status. Family sent the patient in because his mental status has been d eteriorating for about a week. No family or caregivers with the patient. Patient knows who he is but he does not know the year or month. Patient only complains of some discomfort in the left hip which she states is always there. Patient denies any headache patient denies any new numbness or weakness. Patient states she's got chronic left-sided paralysis from her previous stroke. Patient denies any chest pain difficult breathing shortness of breath. Patient denies any fever chills per patient denies abdominal pain patient denies nausea vomiting diarrhea. - Related Data Home Medications Medication Instructions Recorded Confirmed ALPRAZolam [Xanax] 0.5 mg PO DAILY PRN 04/09/19 02/24/21 Aspirin EC [Ecotrin Low Dose] 81 mg PO DAILY 04/09/19 02/24/21 Clopidogrel [Plavix] 75 mg PO DAILY 04/09/19 02/24/21 Insulin Glargine,Hum.rec.anlog 40 unit SQ DAILY 04/09/19 02/24/21 [Lantus Solostar Pen] Melatonin 15 mg PO HS 04/09/19 02/24/21 atenoloL [Tenormin] 25 mg PO DAILY 04/09/19 02/24/21 Simvastatin [Zocor] 40 mg PO HS 04/10/19 02/24/21 Venlafaxine HCl ER [Effexor XR] 37.5 mg PO DAILY 04/10/19 02/24/21 Acetaminophen [Tylenol] 325 mg PO DAILY PRN 02/20/20 02/24/21 Gabapentin [Neurontin] 400 mg PO TID PRN 02/20/20 02/24/21 Omeprazole [PriLOSEC] 20 mg PO DAILY 02/20/20 02/24/21 Tamsulosin HCl [Flomax] 0.4 mg PO BID 02/20/20 02/24/21 Cyclobenzaprine [Flexeril] 10 mg PO DAILY PRN 02/24/21 02/24/21 Nitroglycerin Sl Tabs [Nitrostat] 0.4 mg SUBLINGUAL Q5M PRN 02/24/21 02/24/21 Previous Rx's Medication Instructions Recorded Cefuroxime Axetil [Ceftin] 500 mg PO BID #14 tab 02/26/21 Nystatin/Triamcin Cream [Mycolog 1 applic TOPICAL BID #1 applic 02/26/21 100,000-0.1 Unit/gm-% Cream] lisinopriL [Zestril] 10 mg PO HS #0 02/26/21 Allergies Allergy/AdvReac Type Severity Reaction Status Date / Time No Known Allergies Allergy Verified 06/05/21 07:39 Review of Systems ROS Statement: Those systems with pertinent positive or pertinent negative responses have been documented in the HPI. ROS Other: All systems not noted in ROS Statement are negative. Past Medical History Past Medical History: CVA/TIA, Diabetes Mellitus, Hyperlipidemia, Hypertension, Myocardial Infarction ([place]) Additional Past Medical History / Comment(s): CVA July 2018, states he had aneurysm unsure exactly where. Last Myocardial Infarction Date:: 1998 History of Any Multi-Drug Resistant Organisms: MRSA Date of last positivie culture/infection: 04/10/19 MDRO Source:: left thigh Past Surgical History: Appendectomy, Cholecystectomy, Coronary Bypass/CABG, Orthopedic Surgery Additional Past Surgical History / Comment(s): ANEURYSM REPAIR Past Anesthesia/Blood Transfusion Reactions: No Reported Reaction Past Psychological History: Anxiety, Depression, PTSD Smoking Status: Former smoker Past Alcohol Use History: None Reported Past Drug Use History: None Reported - Past Family History Father Family Medical History: No Reported History General Exam - General Exam Comments Initial Comments: GENERAL: Patient is well-developed and well-nourished. Patient is nontoxic and well- hydrated and is in no acute distress. ENT: Neck is soft and supple. No significant lymphadenopathy is noted. Oropharynx is clear. Moist mucous membranes. Neck has full range of motion without eliciting any pain. EYES: The sclera were anicteric and conjunctiva were pink and moist. Extraocular movements were intact and pupils were equal round and reactive to light. Eyelids were unremarkable. PULMONARY: Unlabored respirations. Good breath sounds bilaterally. No audible rales rhonchi or wheezing was noted. CARDIOVASCULAR: There is a regular rate and rhythm without any murmurs gallops or rubs. ABDOMEN: Soft and nontender with normal bowel sounds. No palpable organomegaly was noted. There is no palpable pulsatile mass. SKIN: Patient has stage II decubitus ulcer on the left hip. There is erythema all around it. NEUROLOGIC: Patient is alert and oriented 1. Cranial nerves II through XII are grossly intact. Patient has complete paralysis left arm and only very minimal movement of the left leg. MUSCULOSKELETAL: Normal extremities with adequate strength and full range of motion. LYMPHATICS: No significant lymphadenopathy is noted PSYCHIATRIC: Normal psychiatric evaluation. Limitations: no limitations Course Vital Signs 06/05/21 06/05/21 06/05/21 07:33 09:30 10:00 Temperature 98.0 F Pulse Rate 80 73 72 Respiratory 18 18 22 Rate Blood Pressure 119/79 105/80 107/74 O2 Sat by Pulse 98 96 98 Oximetry 06/05/21 10:30 Temperature Pulse Rate 72 Respiratory 10 L Rate Blood Pressure 100/68 O2 Sat by Pulse 98 Oximetry Medical Decision Making - Medical Decision Making EKG shows sinus rhythm at 76 bpm MT interval is 212 QRS is 98 QT interval 388 QTC is 436 per patient's EKG shows no ST segment elevation or depression. We spoke with the family and family stated the patient gets confused at times in the point where he is trying to kick him out of the house and he has called the police and the multiple times. And on occasion he does not even know who they are. I spoke with Dr. Ryan he agreed to admit the patient admitted the patient wrote admitting orders. - Lab Data Result diagrams: 06/05/21 07:55 06/05/21 07:55 Lab Results 06/05/21 06/05/21 06/05/21 Range/Units 07:55 07:55 07:55 WBC 8.8 (3.8-10.6) k/uL RBC 4.49 (4.30-5.90) m/uL Hgb 13.3 (13.0-17.5) gm/dL Hct 41.1 (39.0-53.0) % MCV 91.5 (80.0-100.0) fL MCH 29.6 (25.0-35.0) pg MCHC 32.4 (31.0-37.0) g/dL RDW 12.8 (11.5-15.5) % Plt Count 273 (150-450) k/uL MPV 6.9 Neutrophils % 61 % Lymphocytes % 27 % Monocytes % 5 % Eosinophils % 5 % Basophils % 1 % Neutrophils # 5.3 (1.3-7.7) k/uL Lymphocytes # 2.4 (1.0-4.8) k/uL Monocytes # 0.5 (0-1.0) k/uL Eosinophils # 0.4 (0-0.7) k/uL Basophils # 0.1 (0-0.2) k/uL PT 11.4 (9.0-12.0) sec INR 1.1 (<1.2) APTT 27.0 (22.0-30.0) sec Sodium (137-145) mmol/L Potassium (3.5-5.1) mmol/L Chloride (98-107) mmol/L Carbon Dioxide (22-30) mmol/L Anion Gap mmol/L BUN (9-20) mg/dL Creatinine (0.66-1.25) mg/dL Est GFR (CKD-EPI)AfAm (>60 ml/min/1.73 sqM) Est GFR (CKD-EPI)NonAf (>60 ml/min/1.73 sqM) Glucose (74-99) mg/dL Plasma Lactic Acid Deangelo (0.7-2.0) mmol/L Calcium (8.4-10.2) mg/dL Total Bilirubin (0.2-1.3) mg/dL AST (17-59) U/L ALT (4-49) U/L Alkaline Phosphatase (38-126) U/L Troponin I (0.000-0.034) ng/mL Total Protein (6.3-8.2) g/dL Albumin (3.5-5.0) g/dL Urine Color Yellow Urine Appearance Cloudy (Clear) Urine pH 7.5 (5.0-8.0) Ur Specific Hawkins 1.014 (1.001-1.035) Urine Protein Negative (Negative) Urine Glucose (UA) Negative (Negative) Urine Ketones Negative (Negative) Urine Blood Negative (Negative) Urine Nitrite Negative (Negative) Urine Bilirubin Negative (Negative) Urine Urobilinogen <2.0 (<2.0) mg/dL Ur Leukocyte Esterase Moderate H (Negative) Urine RBC 5 (0-5) /hpf Urine WBC 5 (0-5) /hpf Ur Squamous Epith Cells 3 (0-4) /hpf Triple Phos Crystals Rare H (None) /hpf Amorphous Sediment Moderate H (None) /hpf Urine Bacteria Rare H (None) /hpf Hyaline Casts 1 (0-2) /lpf Urine Mucus Rare H (None) /hpf 06/05/21 06/05/21 06/05/21 Range/Units 07:55 07:55 07:55 WBC (3.8-10.6) k/uL RBC (4.30-5.90) m/uL Hgb (13.0-17.5) gm/dL Hct (39.0-53.0) % MCV (80.0-100.0) fL MCH (25.0-35.0) pg MCHC (31.0-37.0) g/dL RDW (11.5-15.5) % Plt Count (150-450) k/uL MPV Neutrophils % % Lymphocytes % % Monocytes % % Eosinophils % % Basophils % % Neutrophils # (1.3-7.7) k/uL Lymphocytes # (1.0-4.8) k/uL Monocytes # (0-1.0) k/uL Eosinophils # (0-0.7) k/uL Basophils # (0-0.2) k/uL PT (9.0-12.0) sec INR (<1.2) APTT (22.0-30.0) sec Sodium 135 L (137-145) mmol/L Potassium 4.1 (3.5-5.1) mmol/L Chloride 101 (98-107) mmol/L Carbon Dioxide 25 (22-30) mmol/L Anion Gap 9 mmol/L BUN 9 (9-20) mg/dL Creatinine 0.94 (0.66-1.25) mg/dL Est GFR (CKD-EPI)AfAm >90 (>60 ml/min/1.73 sqM) Est GFR (CKD-EPI)NonAf 81 (>60 ml/min/1.73 sqM) Glucose 113 H (74-99) mg/dL Plasma Lactic Acid Deangelo 1.4 (0.7-2.0) mmol/L Calcium 9.4 (8.4-10.2) mg/dL Total Bilirubin 1.3 (0.2-1.3) mg/dL AST 21 (17-59) U/L ALT 7 (4-49) U/L Alkaline Phosphatase 93 (38-126) U/L Troponin I <0.012 (0.000-0.034) ng/mL Total Protein 7.3 (6.3-8.2) g/dL Albumin 3.5 (3.5-5.0) g/dL Urine Color Urine Appearance (Clear) Urine pH (5.0-8.0) Ur Specific Hawkins (1.001-1.035) Urine Protein (Negative) Urine Glucose (UA) (Negative) Urine Ketones (Negative) Urine Blood (Negative) Urine Nitrite (Negative) Urine Bilirubin (Negative) Urine Urobilinogen (<2.0) mg/dL Ur Leukocyte Esterase (Negative) Urine RBC (0-5) /hpf Urine WBC (0-5) /hpf Ur Squamous Epith Cells (0-4) /hpf Triple Phos Crystals (None) /hpf Amorphous Sediment (None) /hpf Urine Bacteria (None) /hpf Hyaline Casts (0-2) /lpf Urine Mucus (None) /hpf Disposition Clinical Impression: Altered mental status Disposition: ADMITTED IP TO THIS HOSP Referrals: Pedro Vazquez MD [Primary Care Provider] - 1-2 days Time of Disposition: 11:04
[2021-06-05 08:13] LABS: Basophils # (A) 0.1 k/uL (0-0.2); Basophils % (A) 1 %; Eosinophils # (A) 0.4 k/uL (0-0.7); Eosinophils % (A) 5 %; HCT 41.1 % (39.0-53.0); HGB 13.3 gm/dL (13.0-17.5); Lymphocytes # (A) 2.4 k/uL (1.0-4.8); Lymphocytes % (A) 27 %; MCH 29.6 pg (25.0-35.0); MCHC 32.4 g/dL (31.0-37.0); MCV 91.5 fL (80.0-100.0); Mean Platelet Volume 6.9; Monocytes # (A) 0.5 k/uL (0-1.0); Monocytes % (A) 5 %; Neutrophils # (A) 5.3 k/uL (1.3-7.7); Neutrophils % (A) 61 %; Platelet Count 273 k/uL (150-450); RBC 4.49 m/uL (4.30-5.90); RDW 12.8 % (11.5-15.5); WBC 8.8 k/uL (3.8-10.6)
[2021-06-05 08:27] LABS: INR 1.1 (<1.2); Prothrombin Time 11.4 sec (9.0-12.0)
[2021-06-05 08:30] LABS: ALT 7 U/L (4-49); AST 21 U/L (17-59); African American GFR (CKD) >90 (>60 ml/min/1.73 sqM); Albumin 3.5 g/dL (3.5-5.0); Alkaline Phosphatase 93 U/L (38-126); Anion Gap 9 mmol/L; Blood Urea Nitrogen 9 mg/dL (9-20); Calcium 9.4 mg/dL (8.4-10.2); Carbon Dioxide 25 mmol/L (22-30); Chloride 101 mmol/L (98-107); Glucose 113 mg/dL (74-99); Non-African American GFR(CKD) 81 (>60 ml/min/1.73 sqM); Potassium 4.1 mmol/L (3.5-5.1); Sodium 135 mmol/L (137-145); Total Bilirubin 1.3 mg/dL (0.2-1.3); Total Protein 7.3 g/dL (6.3-8.2)
--- NOTE | 2021-06-05 08:56 | CT ---
EXAMINATION TYPE: CT brain wo con DATE OF EXAM: 06/05/2021 HISTORY: Altered mental status CT DLP: 1142.4 mGycm. Automated Exposure Control for Dose Reduction was Utilized. TECHNIQUE: CT scan of the head is performed without contrast. COMPARISON: CT brain June 02, 2019. FINDINGS: There is no acute intracranial hemorrhage or midline shift identified. There is moderate diffuse ventricular and sulcal prominence consistent with diffuse age-related cerebral atrophy. Degre e of ventricular prominence slightly out of proportion to degree of sulcal effacement but not signifi cantly changed from 2019 CT. Old infarcts or encephalomalacia of right frontal lobe axial image 32 an d right superior frontoparietal region axial image 43 are thought present. There is moderate low-atte nuation in the periventricular white matter consistent with chronic small vessel ischemic change. Na nubia septum is deviated to left of midline. Vascular calcification distal internal carotid arteries bi laterally is redemonstrated. The globes are intact and the visualized sinuses are clear. IMPRESSION: No acute intracranial hemorrhage or midline shift. There is moderate diffuse cerebral a trophy and chronic small vessel ischemic change redemonstrated. Old right frontal lobe infarct again seen. Cannot exclude underlying normal pressure hydrocephalus. No significant change in these findin gs from 2019. High right frontoparietal lobe infarct new from 2019 but suspected chronic in age.
--- NOTE | 2021-06-05 09:15 | XR ---
EXAMINATION TYPE: XR chest 2V DATE OF EXAM: 06/05/2021 COMPARISON: Chest x-ray February 21, 2020 HISTORY: Altered mental status and weakness. TECHNIQUE: Frontal and lateral views of the chest are obtained. FINDINGS: Overlying Sternal wires and mediastinal clips are redemonstrated. Stable small left pleura l thickening. There is no new focal air space opacity, pleural effusion, or pneumothorax seen. The c ardiac silhouette size is stable and mildly enlarged. Degenerative change bilateral glenohumeral join ts are redemonstrated. IMPRESSION: Chronic changes without acute pulmonary process.
--- NOTE | 2021-06-05 09:17 | XR ---
EXAMINATION TYPE: XR Hip Limited LT DATE OF EXAM: 06/05/2021 CLINICAL HISTORY: Pain rule out infection. TECHNIQUE: Single AP view of the left hip is obtained. COMPARISON: Prior left femur x-ray April 09, 2019. FINDINGS: [place] osseous structures are demineralized. Metallic hardware from total left hip arthropl asty redemonstrated and stable and satisfactory in position. No new surrounding lucencies seen. Media l soft tissue surgical clips and advanced arteriovascular calcification remains present. No suspiciou s bony destruction or soft tissue gas visualized. IMPRESSION: As above.
[2021-06-05 09:36] LABS: Amorphous Sediment,Urine Moderate /hpf; Appearance,Urine Cloudy (Clear); Bacteria,Urine Rare /hpf; Bilirubin,Urine Negative (Negative); Blood,Urine Negative (Negative); Color,Urine Yellow; Glucose,Urine (UA) Negative (Negative); Hyaline Casts,Urine 1 /lpf (0-2); Ketones,Urine Negative (Negative); Leukocyte Esterase,Urine Moderate (Negative); Mucus,Urine Rare /hpf; Nitrite,Urine Negative (Negative); PH, Urine 7.5 (5.0-8.0); Protein,Urine Negative (Negative); RBC,Urine 5 /hpf (0-5); Specific Gravity,Urine 1.014 (1.001-1.035); Squamous Epithelial Cell,Urine 3 /hpf (0-4); Triple Phosphate Crystal,Urine Rare /hpf; Urobilinogen,Urine <2.0 mg/dL (<2.0); WBC,Urine 5 /hpf (0-5)
[2021-06-05] MEDS ORDERED: SODIUM CHLORIDE 0.9% 1,000 ML IV ONE (11:04)
[2021-06-05] MEDS ORDERED: ALPRAZolam 0.5 MG TAB PO PRN (12:52)
[2021-06-05] MEDS ORDERED: ACETAMINOPHEN TAB 325 MG TAB PO PRN (12:52)
[2021-06-05] MEDS ORDERED: MELATONIN 3 MG TABLET PO PRN (12:52)
[2021-06-05] MEDS ORDERED: NITROGLYCERIN SL TABS 0.4 MG TAB SUBLINGUAL PRN (12:52)
[2021-06-05] MEDS: TAMSULOSIN 0.4 MG CAP.ER.24H PO SCH ×3 (13:20→21:39)
[2021-06-05] MEDS: VENLAFAXINE HCL ER 37.5 MG CAP PO SCH (13:20)
[2021-06-05] MEDS: PANTOPRAZOLE 40 MG TABLET PO SCH (13:20)
[2021-06-05] MEDS: ENOXAPARIN 40 MG/0.4 ML SYRINGE SQ SCH (13:20)
--- NOTE | 2021-06-05 17:01 | P.HPIM ---
History of Present Illness H&P Date: 06/05/21 Chief Complaint: Left hip pain History of presenting complaint: This is a very pleasant 71-year-old patient, follows with visiting physicians . Chronic stable medical conditions include diabetes, hypertension, hyperlipidemia, CAD with a prior CT, bypass. Patient had a stroke in 2017. Patient has resultant left-sided weakness. Does use a walker. Has chronic dysarthria. 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 Patient has regulated bowels. Has some control. Able to feed himself. Patient was sent in by the family because of altered mental status. Patient stated that is just not feeling well. Denied any fever and chills. No cough or shortness of breath. Patient had previous hip surgery. Surgery was done by Dr. bassett.. Left hip is bothering him more. His appetite is fair. No chest pain no shortness of breath. Patient does speak slowly but is able to give a full history. Review of systems: GEN.: Tired EYES: None HEENT: None NECK: None RESPIRATORY: None CARDIOVASCULAR: None GASTROINTESTINAL: None GENITOURINARY: Condom catheter MUSCULOSKELETAL: Joint pains she left hip LYMPHATICS: None HEMATOLOGICAL: None PSYCHIATRY: None NEUROLOGICAL: Left-sided weakness, dysarthria Past medical history to include: Stroke in 2018 with left-sided weakness and dysarthria, diabetes, hyperlipidemia, hypertension, CAD with bypass, possible cerebral aneurysm, anxiety depression Social history: Lives with his and other family members. Former smoker. Family history: Reviewed, noncontributory to presentation Physical examination: VITAL SIGNS: 98, 80, 18, 119/79, 98% on room air GENERAL: BMI 25.8, laying in bed, awake a bit tired. EYES: Pupils equal. Conjunctiva normal. HEENT: External appearance of nose and ears normal, oral cavity grossly normal. NECK: JVD not raised; masses not palpable. HEART: First and second heart sounds are normal; no edema. LUNGS: Respiratory rate normal; clear to auscultation. ABDOMEN: Soft, nontender, liver spleen not palpable, no masses palpable. PSYCH: Alert and oriented x3; mood and affect normal. NEUROLOGICAL: Cranial nerves grossly intact; some facial asymmetry, sensation grossly intact. Some facial asymmetry. Power left arm 2/5, power in the left leg 3/5, dysarthria. LYMPHATICS: No lymph nodes palpable in the axilla and neck. INVESTIGATIONS, reviewed in the clinical context: White count 8.8 hemoglobin 13.3 platelets 273 potassium 4.1 BUN 9 creatinine 0.94 UA positive for leukoesterase, bacteria Coronavirus [PCF]: Not detected EKG tracing personally reviewed by me-normal sinus rhythm, poor baseline, rate 76 Left hip x-ray: D mineralized. Metallic hardware from total left hip arthroplasty. No obvious abnormality noted. Chest x-ray film personally reviewed by me-some cardiomegaly. Possible chronic changes Assessment and plan: -Patient presented feeling tired. No obvious fever and chills. 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 Likely acute medical asthenia from underlying UTI. -Acute UTI with cystitis from admitting condom catheter IV ceftriaxone 1 mg dose now. Start Keflex from tomorrow morning -Increasing pain in the left hip. No fracture on x-ray. Prior history of left total hip arthroplasty. This is the stroke site. Orthopedic consult -BPH Flomax 0.4 mg twice a day -GERD Protonix 40 mg daily -Hyperlipidemia Lipitor 20 mg daily at bedtime -CAD with a history of bypass Aspirin 81 mg daily, Lipitor 20 mg daily at bedtime -Depression and anxiety not otherwise specified Effexor XL 37.5 mg daily -Chronic dysarthria from prior stroke -Left hemiparesis from prior stroke Fall precautions. At the baseline patient uses a walker Home medications resumed. Lovenox. Antiemetics. IV fluids. Consult orthopedics. Care was discussed with the patient. Hopefully can be discharged home tomorrow. Past Medical History Past Medical History: CVA/TIA, Diabetes Mellitus, Hyperlipidemia, Hypertension, Myocardial Infarction (CT) Additional Past Medical History / Comment(s): CVA July 2018, states he had aneurysm unsure exactly where. Last Myocardial Infarction Date:: 1998 History of Any Multi-Drug Resistant Organisms: MRSA Date of last positivie culture/infection: 04/10/19 MDRO Source:: left thigh Past Surgical History: Appendectomy, Cholecystectomy, Coronary Bypass/CABG, Orthopedic Surgery Additional Past Surgical History / Comment(s): ANEURYSM REPAIR Past Anesthesia/Blood Transfusion Reactions: No Reported Reaction Past Psychological History: Anxiety, Depression, PTSD Smoking Status: Former smoker Past Alcohol Use History: None Reported Past Drug Use History: None Reported - Past Family History Father Family Medical History: No Reported History Medications and Allergies Home Medications Medication Instructions Recorded Confirmed Type ALPRAZolam [Xanax] 0.5 mg PO DAILY PRN 04/09/19 06/05/21 History Aspirin EC [Ecotrin Low Dose] 81 mg PO DAILY 04/09/19 06/05/21 History Clopidogrel [Plavix] 75 mg PO DAILY 04/09/19 06/05/21 History Insulin Glargine,Hum.rec.anlog 40 unit SQ DAILY 04/09/19 06/05/21 History [Lantus Solostar Pen] atenoloL [Tenormin] 25 mg PO DAILY 04/09/19 06/05/21 History Simvastatin [Zocor] 40 mg PO HS 04/10/19 06/05/21 History Venlafaxine HCl ER [Effexor XR] 37.5 mg PO DAILY 04/10/19 06/05/21 History Acetaminophen [Tylenol] 325 mg PO DAILY PRN 02/20/20 06/05/21 History Omeprazole [PriLOSEC] 20 mg PO DAILY 02/20/20 06/05/21 History Tamsulosin HCl [Flomax] 0.4 mg PO BID 02/20/20 06/05/21 History Nitroglycerin Sl Tabs [Nitrostat] 0.4 mg SUBLINGUAL Q5M PRN 02/24/21 06/05/21 History Gabapentin 300 mg PO TID 06/05/21 06/05/21 History Melatonin 3 mg PO HS PRN 06/05/21 06/05/21 History lisinopriL [Zestril] 10 mg PO DAILY 06/05/21 06/05/21 History Allergies Allergy/AdvReac Type Severity Reaction Status Date / Time No Known Allergies Allergy Verified 06/05/21 11:16 Physical Exam Vitals: Vital Signs Temp Pulse Resp BP Pulse Ox 06/05/21 10:30 72 10 L 100/68 98 06/05/21 10:00 72 22 107/74 98 06/05/21 09:30 73 18 105/80 96 06/05/21 07:33 98.0 F 80 18 119/79 98 Intake and Output 06/05/21 06/05/21 06/05/21 06:59 14:59 22:59 Other: Weight 81.647 kg Results CBC & Chem 7: 06/05/21 07:55 06/05/21 07:55 Labs: Abnormal Lab Results - Last 24 Hours (Table) 06/05/21 06/05/21 Range/Units 07:55 07:55 Sodium 135 L (137-145) mmol/L Glucose 113 H (74-99) mg/dL Ur Leukocyte Esterase Moderate H (Negative) Triple Phos Crystals Rare H (None) /hpf Amorphous Sediment Moderate H (None) /hpf Urine Bacteria Rare H (None) /hpf Urine Mucus Rare H (None) /hpf
[2021-06-05] MEDS ORDERED: cefTRIAXone IN SWFI 1,000 MG/10 ML SYRINGE IVP ONE (17:15)
[2021-06-05] MEDS: ATORVASTATIN 20 MG TAB PO SCH (21:38)
[2021-06-05] MEDS: GABAPENTIN 300 MG CAP PO SCH (21:44)
--- NOTE | 2021-06-06 01:02 | P.CNNES ---
History of Present Illness Consult date: 06/05/21 Requesting physician: Roel Pelayo Reason for Consult: Altered mental status History of Present Illness: Patient is a 71-year-old male who came to the hospital by ambulance today at 7:29 AM. EMS flow sheet not available in the chart. Neurology consulted for altered mental status. Patient states that he always have trouble with hips. He used to play a lot of softball and other aggressive sports. Over time it has affected his hips. Last night he couldn't sleep, hips were hurting too bad. 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 Patient states he had history of a stroke in 2018 which affected his left side of the body. He has spastic hemiparesis on the left. Also states that he "runs out of speech" when he speaks for long time. He came to the hospital because of the pain in his hips and he couldn't sleep. Patient denies any worsening of his baseline weakness on the left side. Patient's blood test shows normal CBC, ESR is 74, PT/PTT normal. Sodium 135 potassium forward 1, normal renal functions and hepatic panel. Troponin negative. CRP is mildly elevated 1.3. UA is positive for moderate leukocyte esterase, rare bacteria. Steve virus PCR negative. EKG shows sinus rhythm with first-degree AV block. Incomplete right bundle branch block. Hip x-ray sh owed [place] osseous structures are demineralized. Metallic hardware from total left hip arthroplasty redemonstrated in stable and satisfactory in position. No new surrounding lucencies. No suspicious bony destruction. Chest x-ray showed chronic changes without acute pulmonary process. CT head showed no acute intracranial hemorrhage or midline shift. There is moderate diffuse cerebral atrophy and chronic small vessel ischemic change redemonstrated. Old right frontal lobe infarct again seen. Cannot exclude underlying normal pressure hydrocephalus. No significant change in these findings from 2019. High right frontoparietal lobe infarct new from 2019 was suspected chronic in age. Patient has been seen by Dr. Guillen neurologist on 06/02/2019 for possible NPH. Patient was recommended to follow up with a neurologist as an outpatient. Patient has history of diabetes for last 20 years, type II. Hypertension. He is a nonsmoker. He had heart surgery in 2000. Review of Systems Positive for left hemiparesis, hip pain. Gait difficulty. Denies any chest pain, abdominal pain, nausea vomiting diarrhea. No double vision, loss of vision. Patient had a stroke in the past. No rash. All other review of systems noncontributory. No slurred speech. No dysphagia. Past Medical History Past Medical History: CVA/TIA, Diabetes Mellitus, Hyperlipidemia, Hypertension, Myocardial Infarction ([place]) Additional Past Medical History / Comment(s): CVA July 2018, states he had aneurysm unsure exactly where. Last Myocardial Infarction Date:: 1998 History of Any Multi-Drug Resistant Organisms: MRSA Date of last positivie culture/infection: 04/10/19 MDRO Source:: left thigh Past Surgical History: Appendectomy, Cholecystectomy, Coronary Bypass/CABG, Orthopedic Surgery Additional Past Surgical History / Comment(s): ANEURYSM REPAIR Past Anesthesia/Blood Transfusion Reactions: No Reported Reaction Past Psychological History: Anxiety, Depression, PTSD Additional Psychological History / Comment(s): and lives in the family home with the and family members. Moved from [place]. 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 No experience. No recent travel. Pet dog in the home Smoking Status: Former smoker Past Alcohol Use History: None Reported Past Drug Use History: None Reported - Past Family History Father Family Medical History: No Reported History Medications and Allergies Home Medications Medication Instructions Recorded Confirmed Type ALPRAZolam [Xanax] 0.5 mg PO DAILY PRN 04/09/19 06/05/21 History Aspirin EC [Ecotrin Low Dose] 81 mg PO DAILY 04/09/19 06/05/21 History Clopidogrel [Plavix] 75 mg PO DAILY 04/09/19 06/05/21 History Insulin Glargine,Hum.rec.anlog 40 unit SQ DAILY 04/09/19 06/05/21 History [Lantus Solostar Pen] atenoloL [Tenormin] 25 mg PO DAILY 04/09/19 06/05/21 History Simvastatin [Zocor] 40 mg PO HS 04/10/19 06/05/21 History Venlafaxine HCl ER [Effexor XR] 37.5 mg PO DAILY 04/10/19 06/05/21 History Acetaminophen [Tylenol] 325 mg PO DAILY PRN 02/20/20 06/05/21 History Omeprazole [PriLOSEC] 20 mg PO DAILY 02/20/20 06/05/21 History Tamsulosin HCl [Flomax] 0.4 mg PO BID 02/20/20 06/05/21 History Nitroglycerin Sl Tabs [Nitrostat] 0.4 mg SUBLINGUAL Q5M PRN 02/24/21 06/05/21 History Gabapentin 300 mg PO TID 06/05/21 06/05/21 History Melatonin 3 mg PO HS PRN 06/05/21 06/05/21 History lisinopriL [Zestril] 10 mg PO DAILY 06/05/21 06/05/21 History Allergies Allergy/AdvReac Type Severity Reaction Status Date / Time No Known Allergies Allergy Verified 06/05/21 11:16 Physical Examination - Vital Signs Vital Signs: Vital Signs Temp Pulse Resp BP Pulse Ox 06/05/21 21:45 97.8 F 15 96 06/05/21 20:19 16 98 06/05/21 19:07 61 18 146/77 98 06/05/21 10:30 72 10 L 100/68 98 06/05/21 10:00 72 22 107/74 98 06/05/21 09:30 73 18 105/80 96 06/05/21 07:33 98.0 F 80 18 119/79 98 Intake and Output 06/05/21 06/05/21 06/06/21 14:59 22:59 06:59 Output Total 1400 Balance -1400 Output: Urine 1400 Other: Voiding Method Indwelling Catheter Weight 81.647 kg 81.647 kg Patient is an elderly male, in no acute distress. Patient is alert awake oriented to time place and person. Patient knows it is June 2021 and that he is in [place] in [facility] in [place]. Speech is mildly slurred, probably baseline and language functions are normal. Attention, concentration and fund of knowledge is adequate. Patient can name and repeat very well. On cranial examination, pupils are round and reacting to light, visual lan reveal slight left-sided neglect on double simultaneous stimulation. Visual lan decreased on the left. Patient's extraocular muscles are intact with no nystagmus. Face has slightly decreased left nasolabial fold. His ongue protrudes to the midline. Palatal elevation and sensation normal, hearing and shoulder shrug normal, facial sensation normal. On muscle strength testing, patient has spastic hemiparesis on the left side. Patient has very minimal movement of the very stiff left upper extremity. Hip flexion is 4 bilaterally. Ankle dorsiflexion is normal on the right, 2 on the left. Deep tendon reflexes are very brisk on the left, and plantar is upgoing on the left. Sensory to touch reveals neglect on the left on double simultaneous stimulation. Cerebellar function showed no ataxia for [id number] testing on the right, cannot perform on the left. Tone is significantly increased in the left. Gait not checked. On general examination, there is no carotid bruit or murmur, S1-S2 audible. Abdomen is soft nontender. Chest is clear. Peripheral pulses are present. Results - Laboratory Findings CBC and BMP: 06/05/21 07:55 06/05/21 07:55 Abnormal Lab Findings: Abnormal Labs 06/05/21 06/05/21 06/05/21 07:55 07:55 07:55 ESR 74 H Sodium 135 L Glucose 113 H C-Reactive Protein Ur Leukocyte Esterase Moderate H Triple Phos Crystals Rare H Amorphous Sediment Moderate H Urine Bacteria Rare H Urine Mucus Rare H 06/05/21 07:55 ESR Sodium Glucose C-Reactive Protein 1.3 H Ur Leukocyte Esterase Triple Phos Crystals Amorphous Sediment Urine Bacteria Urine Mucus Assessment and Plan Assessment: * Altered mental status, now seems to have resolved. Possible mild UTI. * Chronic left spastic hemiparesis. Patient denies any worsening of baseline left hemiparesis. 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 * History of normal pressure hydrocephalus, known as far as June 2019, not treated surgically. * Diabetes, controlled, as last A1c 5.3 on 12/25/2018. * Hypertension * Obesity Plan: * Recheck hemoglobin A1c, B12, B6, folate, MMA. * Patient has mild UTI, currently started on ceftriaxone 1 g IV push and now on cephalexin. * Continue aspirin 81 mg, Plavix 75 mg and Lipitor 20 mg. * Carotid Doppler. * 2-D echo. * Patient on Lovenox for DVT prophylaxis. * PT OT evaluate gait. * Neurology will follow.
[2021-06-06] MEDS: CLOPIDOGREL 75 MG TAB PO SCH (08:09)
[2021-06-06] MEDS: ASPIRIN 81 MG PO SCH (08:09)
[2021-06-06] MEDS: ENOXAPARIN 40 MG/0.4 ML SYRINGE SQ SCH (08:09)
[2021-06-06] MEDS: VENLAFAXINE HCL ER 37.5 MG CAP PO SCH (08:09)
[2021-06-06] MEDS: PANTOPRAZOLE 40 MG TABLET PO SCH (08:09)
[2021-06-06] MEDS: CEPHALEXIN 250 MG CAP PO SCH ×4 (08:10→21:41)
[2021-06-06] MEDS: TAMSULOSIN 0.4 MG CAP.ER.24H PO SCH ×2 (08:12→20:41)
[2021-06-06] MEDS ORDERED: CLOPIDOGREL 75 MG TAB PO SCH (09:00)
--- NOTE | 2021-06-06 09:55 | US ---
EXAMINATION TYPE: US carotid duplex BILAT DATE OF EXAM: 06/06/2021 COMPARISON: NONE CLINICAL HISTORY: Altered mental status, history of CVA, abnormal CT. Exam done portable. EXAM MEASUREMENTS: RIGHT: Peak Systolic Velocity (PSV) cm/sec ----- Right CCA: 51.1 ----- Right ICA: 112.0 ----- Right ECA: 90.0 ICA/CCA ratio: 2.2 RIGHT: End Diastole cm/sec ----- Right CCA: 12.2 ----- Right ICA: 19.4 ----- Right ECA: 10.3 LEFT: Peak Systolic Velocity (PSV) cm/sec ----- Left CCA: 58.7 ----- Left ICA: 93.5 ----- Left ECA: 67.2 ICA/CCA ratio: 1.6 LEFT: End Diastole cm/sec ----- Left CCA: 11.7 ----- Left ICA: 30.6 ----- Left ECA: 14.6 VERTEBRALS (direction of flow): Right Vertebral: Antegrade Left Vertebral: Antegrade Rhythm: Normal Difficult and limited study due to patient body habitus and position Exam suboptimal secondary to large body habitus. Moderate to severe peripheral shadowing plaque at bi lateral carotid bulbs on grayscale images but velocity measurements in the bilateral internal carotid arteries remain within normal limits. IMPRESSION: Moderate to severe atherosclerotic changes without hemodynamically significant focal linda nosis in either internal carotid artery . Criteria for Assigning % of Stenosis / Diameter reduction (Estimation based on the indirect measurements of the internal carotid artery velocities (ICA PSV). 1. Normal (no stenosis)=ICA PSV < 125 cm/s: ratio < 2.0: ICA EDV<40 cm/s. 2. Less than 50% stenosis=ICA PSV < 125 cm/s: ratio < 2.0: ICA EDV<40 cm/s. 3. 50 to 69% stenosis=ICA PSV of 125 to 230 cm/s: ration 2.0 ? 4.0: ICA EDV 40-100 cm/s. 4. Greater than 70% stenosis to near occlusion= ICA PSV > 230 cm/s: ratio > 4.0: ICA EDV > 100 cm/s. 5. Near occlusion= ICA PSV velocities may be low or undetectable: variable ratio and ICA EDV. 6. Total occlusion=unable to detect flow.
--- NOTE | 2021-06-06 13:03 | ECHOF ---
Referral Reason:Altered mental status, history of CVA, abnormal CT MEASUREMENTS -------- HEIGHT: 177.8 cm WEIGHT: 81.6 kg BP: 121/67 RVIDd: 3.4 cm (< 3.3) IVSd: 1.5 cm (0.6 - 1.1) LVIDd: 3.7 cm (3.9 - 5.3) LVPWd: 1.4 cm (0.6 - 1.1) IVSs: 1.7 cm LVIDs: 2.9 cm LVPWs: 1.6 cm LA Diam: 3.5 cm (2.7 - 3.8) Ao Diam: 3.5 cm (2.0 - 3.7) AV Cusp: 2.3 cm (1.5 - 2.6) MV EXCURSION: 12.148 mm (> 18.000) MV EF SLOPE: 106 mm/s (70 - 150) EPSS: 1.2 cm MV E Jeff: 0.87 m/s MV DecT: 165 ms MV A Jeff: 0.49 m/s MV E/A Ratio: 1.80 RAP: 5.00 mmHg RVSP: 32.30 mmHg FINDINGS -------- Sinus rhythm. This was a technically difficult study with suboptimal views. The left ventricular size is normal. There is moderate concentric left ventricular hypertrophy. O verall left ventricular systolic function is normal with, an EF between 55 - 60 %. The right ventricle is mildly enlarged. The left atrium is normal in size. The right atrium is normal in size. 5 ml of Lumason was utilized for enhancement of images. Interatrial and interventricular septum intact. Trace to mild aortic regurgitation. Mild mitral annular calcification present. Mild tricuspid regurgitation present. Right ventricular systolic pressure is normal at < 35 mmHg. The pulmonic valve was not well visualized. The aortic root size is normal. IVC Not well visulized. There is no pericardial effusion. CONCLUSIONS -------- 1. The left ventricular size is normal. 2. There is moderate concentric left ventricular hypertrophy. 3. Overall left ventricular systolic function is normal with, an EF between 55 - 60 %. 4. The right ventricle is mildly enlarged. 5. 5 ml of Lumason was utilized for enhancement of images. 6. Trace to mild aortic regurgitation. 7. Mild mitral annular calcification present. 8. Mild tricuspid regurgitation present. 9. There is no pericardial effusion. TABLE ATTENDANT: Zaynab Trammell RDCS
--- NOTE | 2021-06-06 14:02 | P.CNOR ---
History of Present Illness - [facility] Consult date: 06/06/21 History of present illness: This patient is a 71-year-old male with past medical history of diabetes, hypertension, hyperlipidemia, CAD, stroke in 2018 with residual left-sided weakness that presented to [facility] emergency department on 06/05/21 with complaints of altered mental status. Per chart review, the patient was sent to the emergency department by his family due to his altered mental status. Patient was also complaining of left hip pain in the emergency department. He was admitted under the care of internal medicine with a consult placed to neurology. Patient was also found to have an acute UTI and was started on Rocephin. Orthopedics was consulted due to left hip pain. Patient has a history of left total hip arthroplasty "years" ago by Dr. Kebede, patient states he dislocated his left BREANNA and Dr. Stubbs did a revision. He is unsure of the date of either surgery, but states it was awhile ago. Patient is seen and examined bedside this morning. He states he is not experiencing left hip pain at this time. He states he does experience left hip sometimes with ambulation. He appears slightly confused but answers questions appropriately. He states he otherwise feels well and has no complaints. Vital signs stable. Past Medical History Past Medical History: CVA/TIA, Diabetes Mellitus, Hyperlipidemia, Hypertension, Myocardial Infarction ([place]) Additional Past Medical History / Comment(s): CVA July 2018, states he had aneurysm unsure exactly where. Last Myocardial Infarction Date:: 1998 History of Any Multi-Drug Resistant Organisms: MRSA Year Discovered:: 04/10/19 MDRO Source:: left thigh Past Surgical History: Appendectomy, Cholecystectomy, Coronary Bypass/CABG, Orthopedic Surgery Additional Past Surgical History / Comment(s): ANEURYSM REPAIR Past Anesthesia/Blood Transfusion Reactions: No Reported Reaction Past Psychological History: Anxiety, Depression, PTSD Additional Psychological History / Comment(s): and lives in the family home with the and family members. 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 No experience. No recent travel. Pet dog in the home Smoking Status: Former smoker Past Alcohol Use History: None Reported Past Drug Use History: None Reported - Past Family History Father Family Medical History: No Reported History Medications and Allergies Home Medications Medication Instructions Recorded Confirmed Type ALPRAZolam [Xanax] 0.5 mg PO DAILY PRN 08/08/19 10/04/21 History Aspirin EC [Ecotrin Low Dose] 81 mg PO DAILY 04/09/19 06/05/21 History Clopidogrel [Plavix] 75 mg PO DAILY 04/09/19 06/05/21 History Insulin Glargine,Hum.rec.anlog 40 unit SQ DAILY 04/09/19 06/05/21 History [Lantus Solostar Pen] atenoloL [Tenormin] 25 mg PO DAILY 04/09/19 06/05/21 History Simvastatin [Zocor] 40 mg PO HS 04/10/19 06/05/21 History Venlafaxine HCl ER [Effexor XR] 37.5 mg PO DAILY 04/10/19 06/05/21 History Acetaminophen [Tylenol] 325 mg PO DAILY PRN 02/20/20 06/05/21 History Omeprazole [PriLOSEC] 20 mg PO DAILY 02/20/20 06/05/21 History Tamsulosin HCl [Flomax] 0.4 mg PO BID 02/20/20 06/05/21 History Nitroglycerin Sl Tabs [Nitrostat] 0.4 mg SUBLINGUAL Q5M PRN 02/24/21 06/05/21 History Gabapentin 300 mg PO TID 06/05/21 06/05/21 History Melatonin 3 mg PO HS PRN 06/05/21 06/05/21 History lisinopriL [Zestril] 10 mg PO DAILY 06/05/21 06/05/21 History Allergies Allergy/AdvReac Type Severity Reaction Status Date / Time No Known Allergies Allergy Verified 06/05/21 11:16 Physical Examination On examination, the patient is lying in bed in no apparent distress. He appears mildly confused although answers questions appropriately. His head appears normocephalic and atraumatic. His breathing appears nonlabored. On inspection of the left hip there is no erythema, ecchymosis, skin discoloration. No fluctuance. No signs of infection. There is a small area of superficial ulceration at the posterior thigh with no signs of infection. No pain with palpation of the anterior, lateral, posterior hip. No pain or irritability with PROM of the hip. Thigh and compressible. Patient has decreased strength left lower extremity due to history of stroke. Calf is soft and non-tender. Left lower extremity is warm and well perfused. Results Left hip x-ray 06/05/21: Stable left total hip arthroplasty. No acute fractures identified. - Labs Labs: Abnormal Lab Results - Last 24 Hours (Table) 06/05/21 06/05/21 Range/Units 07:55 07:55 ESR 74 H (0-15) mm/hr C-Reactive Protein 1.3 H (<1.0) mg/dL H & H 06/05/21 Range/Units 07:55 Hgb 13.3 (13.0-17.5) gm/dL Hct 41.1 (39.0-53.0) % Coagulation 06/05/21 Range/Units 07:55 INR 1.1 (<1.2) Result Diagrams: 06/05/21 07:55 06/05/21 07:55 Assessment and Plan Assessment: Left hip pain History left BREANNA by Dr. Kebede, with revision by Dr. Stubbs Plan: - Patient was also seen and examined by Dr. Tran. We have no plans for surgical intervention at this time. - Patient may ambulate as tolerated with a walker in regards to his left hip. - Recommend wound care to posterior thigh for superficial skin breakdown. - We will follow patient peripherally and make recommendations as needed. He may follow-up in the office as an outpatient.
--- NOTE | 2021-06-06 14:25 | P.PN ---
Progress Note - Text Progress Note Date: 06/06/21 Agree with full consult by Shaista Harris PA-C. I saw and examined the patient. At the time of my evaluation the patient denied left hip pain. He had no pain with PROM of the hip or with heel strike. On review of the patient's x-rays he has a well-fixed total hip replacement with a constrained liner and there does not appear to be any acute fractures. The patient can WBAT on his left hip and I will see him in the office after discharge. If he develops left hip pain upon attempting to weight bear, we will be happy to re-evaluate and work-up further.
[2021-06-06 16:45] LABS: Folate, Serum 2.5 ng/mL (4.40-31.00)
[2021-06-06] MEDS: FOLIC ACID 1 MG TAB PO SCH (17:11)
--- NOTE | 2021-06-06 18:14 | P.PN ---
Progress Note - Text Progress Note Date: 06/06/21 Chief Complaint: Left hip pain History of presenting complaint: This is a very pleasant 71-year-old patient, follows with visiting physicians . Chronic stable medical conditions include diabetes, hypertension, hyperlipidemia, CAD with a prior [place], bypass. Patient had a stroke in 2017. Patient has resultant left-sided weakness. Does use a walker. Has chronic dysarthria. 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 Patient has regulated bowels. Has some control. Able to feed himself. Patient was sent in by the family because of altered mental status. Patient stated that is just not feeling well. Denied any fever and chills. No cough or shortness of breath. Patient had previous hip surgery. Surgery was done by Dr. bassett.. Left hip is bothering him more. His appetite is fair. No chest pain no shortness of breath. Patient does speak slowly but is able to give a full history. Admitted with acute UTI, dehydration, some flareup of left hip pain. June 06: Feeling better. Family is requesting inpatient rehab. pipe production worker consulted. On Keflex for UTI. ate about 100% of his lunch. Review of systems: Was done for constitutional, cardiovascular, GI, pulmonary. relevant finding as above Active Medications Acetaminophen (Acetaminophen Tab 325 Mg Tab) 325 mg PO Q6H PRN PRN Reason: Pain Alprazolam (Alprazolam 0.5 Mg Tab) 0.5 mg PO DAILY PRN PRN Reason: Anxiety Aspirin (Aspirin 81 Mg) 81 mg PO DAILY [facility] Last Admin: 06/06/21 08:09 Dose: 81 mg Documented by: Atorvastatin Calcium (Atorvastatin 20 Mg Tab) 20 mg PO HS [facility] Last Admin: 06/05/21 21:38 Dose: 20 mg Documented by: Cephalexin (Cephalexin 250 Mg Cap) 250 mg PO QID [facility] Last Admin: 06/06/21 17:11 Dose: 250 mg Documented by: Clopidogrel Bisulfate (Clopidogrel 75 Mg Tab) 75 mg PO DAILY [facility] Last Admin: 06/06/21 08:09 Dose: 75 mg Documented by: Enoxaparin Sodium (Enoxaparin 40 Mg/0.4 Ml Syringe) 40 mg SQ DAILY [facility] Last Admin: 06/06/21 08:09 Dose: 40 mg Documented by: Folic Acid (Folic Acid 1 Mg Tab) 1 mg PO DAILY [facility] Last Admin: 06/06/21 17:11 Dose: 1 mg Documented by: Gabapentin (Gabapentin 300 Mg Cap) 300 mg PO HS [facility] Last Admin: 06/05/21 21:44 Dose: 300 mg Documented by: Melatonin (Melatonin 3 Mg Tablet) 3 mg PO HS PRN PRN Reason: sleep Nitroglycerin (Nitroglycerin Sl Tabs 0.4 Mg Tab) 0.4 mg SUBLINGUAL Q5M PRN PRN Reason: Chest Pain Pantoprazole Sodium (Pantoprazole 40 Mg Tablet) 40 mg PO DAILY [facility] Last Admin: 06/06/21 08:09 Dose: 40 mg Documented by: Tamsulosin HCl (Tamsulosin 0.4 Mg Cap.Er.24h) 0.4 mg PO BID [facility] Last Admin: 06/06/21 08:12 Dose: 0.4 mg Documented by: Venlafaxine HCl (Venlafaxine Hcl Er 37.5 Mg Cap) 37.5 mg PO DAILY [facility] Last Admin: 06/06/21 08:09 Dose: 37.5 mg Documented by: Past medical history to include: Stroke in 2018 with left-sided weakness and dysarthria, diabetes, hyperlipidemia, hypertension, CAD with bypass, possible cerebral aneurysm, anxiety depression Social history: Lives with his and other family members. Former smoker. Family history: Reviewed, noncontributory to presentation Physical examination: VITAL SIGNS: 97.7, 80, 18, 140/74, 98% room air GENERAL: laying in bed, awake comfortable EYES: Pupils equal. Conjunctiva normal. HEENT: External appearance of nose and ears normal, oral cavity grossly normal. NECK: JVD not raised; masses not palpable. HEART: First and second heart sounds are normal; no edema. LUNGS: Respiratory rate normal; clear to auscultation. ABDOMEN: Soft, nontender, liver spleen not palpable, no masses palpable. PSYCH: Alert and oriented x3; mood and affect normal. NEUROLOGICAL: Cranial nerves grossly intact; some facial asymmetry, sensation grossly intact. Some facial asymmetry. Power left arm 2/5, power in the left leg 3/5, dysarthria. INVESTIGATIONS, reviewed in the clinical context: June 06: Vitamin B12 575. Folate 2.5 White count 8.8 hemoglobin 13.3 platelets 273 potassium 4.1 BUN 9 creatinine 0.94 UA positive for leukoesterase, bacteria Coronavirus [PCF]: Not detected EKG tracing personally reviewed by me-normal sinus rhythm, poor baseline, rate 76 Left hip x-ray: D mineralized. Metallic hardware from total left hip arthroplasty. No obvious abnormality noted. Chest x-ray film personally reviewed by me-some cardiomegaly. Possible chronic changes Assessment and plan: - acute medical asthenia from underlying UTI. PT OT -Acute UTI with cystitis from admitting condom catheter IV ceftriaxone 1 mg on presentation. 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 Orthopedics consulted -BPH Flomax 0.4 mg twice a day -GERD Protonix 40 mg daily -Hyperlipidemia Lipitor 20 mg daily at bedtime -CAD with a history of bypass Aspirin 81 mg daily, Lipitor 20 mg daily at bedtime -Depression and anxiety not otherwise specified Effexor XL 37.5 mg daily -Chronic dysarthria from prior stroke -Left hemiparesis from prior stroke Fall precautions. At the baseline patient uses a walker -Folate deficiency Start folic acid 1 mg daily DC IV fluids. Oral Keflex. PTOT. pipe production worker for Ip[facility] rehab evaluation. Other medications to continue
[2021-06-06] MEDS: ATORVASTATIN 20 MG TAB PO SCH (20:41)
[2021-06-06] MEDS: GABAPENTIN 300 MG CAP PO SCH (20:41)
[2021-06-07] MEDS: VENLAFAXINE HCL ER 37.5 MG CAP PO SCH (07:40)
[2021-06-07] MEDS: CLOPIDOGREL 75 MG TAB PO SCH (07:40)
[2021-06-07] MEDS: TAMSULOSIN 0.4 MG CAP.ER.24H PO SCH ×2 (07:40→21:06)
[2021-06-07] MEDS: CEPHALEXIN 250 MG CAP PO SCH ×4 (07:41→21:06)
[2021-06-07] MEDS: FOLIC ACID 1 MG TAB PO SCH (07:41)
[2021-06-07] MEDS: ENOXAPARIN 40 MG/0.4 ML SYRINGE SQ SCH (07:41)
[2021-06-07] MEDS: ASPIRIN 81 MG PO SCH (07:41)
[2021-06-07] MEDS: PANTOPRAZOLE 40 MG TABLET PO SCH (07:41)
--- NOTE | 2021-06-07 09:05 | P.PN ---
Subjective Progress Note Date: 06/06/21 Patient was seen for a follow-up. Offers no new complaints. Denies headache, no new focal symptoms. Objective - Vital Signs Vital signs: Vital Signs Temp 97.6 F 06/07/21 08:14 Pulse 71 06/07/21 08:14 Resp 17 06/07/21 08:14 BP 127/66 06/07/21 08:14 Pulse Ox 97 06/07/21 08:14 Intake & Output 06/06/21 06/07/21 06/07/21 18:59 06:59 18:59 Intake Total 320 Output Total 450 Balance -450 320 Intake: Oral 320 Output: Urine 450 Other: Voiding Method External Catheter External Catheter - Exam Patient is laying comfortably in the bed. Examination unchanged. - Labs CBC & Chem 7: 06/05/21 07:55 06/05/21 07:55 Labs: Abnormal Lab Results - Last 24 Hours (Table) 06/06/21 Range/Units 06:43 Folate 2.50 L (4.40-31.00) ng/mL Assessment and Plan Assessment: * Altered mental status, now seems to have resolved. Possible mild UTI. * Chronic left spastic hemiparesis. Patient denies any worsening of baseline left hemiparesis. 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 * History of normal pressure hydrocephalus, known as far as June 2019, not treated surgically. * Diabetes, controlled, as last A1c 5.3 on 12/25/2018. * Hypertension * Obesity Plan: * Hemoglobin A1c 5.5, B12 normal at 575, folate is very low 2.5. Patient will be started on folate replacement. B6 and MMA still pending. * Patient has mild UTI, currently started on ceftriaxone 1 g IV push and now on cephalexin. * Continue aspirin 81 mg, Plavix 75 mg and Lipitor 20 mg. * Carotid Doppler revealed moderate to severe atherosclerotic changes without hemodynamically significant focal stenosis in either ICA. Antegrade flow in both vertebral arteries.. * 2-D echo revealed normal left-ventricular size. Moderate concentric LVH. EF is between 55-60%. Right ventricle was mildly enlarged. Trace to mild AR. * Patient on Lovenox for DVT prophylaxis. * PT OT evaluate gait. * Neurologically clear.
[2021-06-07 20:55] LABS: Appearance,Urine Clear (Clear); Bilirubin,Urine Negative (Negative); Blood,Urine Trace (Negative); Color,Urine Yellow; Glucose,Urine (UA) Negative (Negative); Ketones,Urine 1+ (Negative); Leukocyte Esterase,Urine Small (Negative); Mucus,Urine Rare /hpf; Nitrite,Urine Negative (Negative); PH, Urine 5.5 (5.0-8.0); Protein,Urine Negative (Negative); RBC,Urine 3 /hpf (0-5); Specific Gravity,Urine 1.009 (1.001-1.035); Squamous Epithelial Cell,Urine 3 /hpf (0-4); Urobilinogen,Urine <2.0 mg/dL (<2.0); WBC,Urine 8 /hpf (0-5)
[2021-06-07] MEDS: GABAPENTIN 300 MG CAP PO SCH (21:06)
[2021-06-07] MEDS: ATORVASTATIN 20 MG TAB PO SCH (21:06)
[2021-06-08] MEDS: PANTOPRAZOLE 40 MG TABLET PO SCH (07:40)
[2021-06-08] MEDS: CLOPIDOGREL 75 MG TAB PO SCH (07:40)
[2021-06-08] MEDS: CEPHALEXIN 250 MG CAP PO SCH ×4 (07:40→20:47)
[2021-06-08] MEDS: FOLIC ACID 1 MG TAB PO SCH (07:40)
[2021-06-08] MEDS: TAMSULOSIN 0.4 MG CAP.ER.24H PO SCH ×2 (07:40→20:45)
[2021-06-08] MEDS: ENOXAPARIN 40 MG/0.4 ML SYRINGE SQ SCH (07:40)
[2021-06-08] MEDS: ASPIRIN 81 MG PO SCH (07:40)
[2021-06-08] MEDS: VENLAFAXINE HCL ER 37.5 MG CAP PO SCH (07:41)
--- NOTE | 2021-06-08 09:44 | P.PN ---
Subjective Progress Note Date: 06/07/21 Patient was seen for a follow-up. Offers no new complaints. Denies headache, no new focal symptoms. Objective - Vital Signs Vital signs: Vital Signs Temp 97.7 F 06/07/21 14:14 Pulse 73 06/07/21 14:14 Resp 18 06/07/21 14:14 BP 123/65 06/07/21 14:14 Pulse Ox 98 06/07/21 14:14 Intake & Output 06/06/21 06/07/21 06/07/21 18:59 06:59 18:59 Intake Total 320 Output Total 450 Balance -450 320 Intake: Oral 320 Output: Urine 450 Other: Voiding Method External Catheter External Catheter - Exam Patient is laying comfortably in the bed. Patient's mental status, speech and language functions are normal. Patient has mild dysarthria. No aphasia. Attention, concentration and fund of knowledge is adequate. Cranial nerves significant for mild left-sided visual field neglect. Extraocular muscles are intact. Patient has slightly decreased left nasolabial fold. Tongue protrudes the midline. Hearing is normal. Patient has spastic left hemiparesis on the left. Patient has very minimal movement of the very stiff left upper extremity. Sensory touch revealed neglect on double simultaneous stimulation on the left. - Labs CBC & Chem 7: 06/05/21 07:55 06/05/21 07:55 Labs: Abnormal Lab Results - Last 24 Hours (Table) 06/06/21 Range/Units 06:43 Folate 2.50 L (4.40-31.00) ng/mL Assessment and Plan Assessment: * Altered mental status, now seems to have resolved. Possible mild UTI. * Chronic left spastic hemiparesis. Patient denies any worsening of baseline left hemiparesis. 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 * History of normal pressure hydrocephalus, known as far as June 2019, not treated surgically. * Diabetes, controlled, as last A1c 5.3 on 12/25/2018. * Folate deficiency * Hypertension * Obesity Plan: * Hemoglobin A1c 5.5, B12 normal at 575, methylmalonic acid normal 0.15, folate is very low 2.5. Patient started on folate replacement. B6 still pending. * Patient has mild UTI, currently started on ceftriaxone 1 g IV push and now on cephalexin. * Continue aspirin 81 mg, Plavix 75 mg and Lipitor 20 mg. * Carotid Doppler revealed moderate to severe atherosclerotic changes without hemodynamically significant focal stenosis in either ICA. Antegrade flow in both vertebral arteries.. * 2-D echo revealed normal left-ventricular size. Moderate concentric LVH. EF is between 55-60%. Right ventricle was mildly enlarged. Trace to mild AR. * Patient has mild hydrocephalus. May consider follow-up with a neurosurgeon as an outpatient. * Patient on Lovenox for DVT prophylaxis. * PT OT evaluate gait. * Neurologically clear.
--- NOTE | 2021-06-08 14:44 | CDI ---
Documentation Clarification Form Date: 06/08/2021 02:27:41 PM From: Brenda Joya RN CCDS Admit Date: 06/08/2021 10:40:00 AM Patient Name: Tom Meek Visit Number: [id number] Discharge Date: ATTENTION: The Clinical Documentation Specialists (CDI) and [facility] Coding Staff appreciate your assistance in clarifying documentation. Please respond to the clarification below the line at the bottom and electronically sign. The CDI & [facility] Coding staff will review the response and follow-up if needed. Please note: Queries are made part of the Legal Health Record. If you have any questions, please contact the author of this message via ITS. Dr. Henao UTI with cystitis from admitting condom catheter is documented 06/05 in the H&P and 06/06 Medicine progress note. Additional clarification regarding this diagnosis is requested. History/Risk Factors: 71-year-old male presents to the ED for altered mental status. Patient states he just isnt feeling well. Medical history: Stroke 2018 with left sided weakness, Dysarthria, condom catheter and BPH. Clinical Indicators: Vital Signs: 06/05 B/P 119/79, HR 80, Temp 98.0 F, RR 18, SpO2 98% room air. WBC: 06/05 8.8 Urinalysis: 06/05 Leukocyte esterase, Moderate; Triple phos crystals, Rare; Amorphous sediment, moderate; Urine bacteria, rare. Treatment: Antibiotics: 06/05 Rocephin IVP x 1; 06/06 to current Keflex 250mg po QID Cecy Please clarify if there is an additional diagnosis associated with the UTI: [ ] UTI only [ ] UTI due to condom catheter [ ] Other, please specify [ ] Unable to determine (Template Last Revised: October 2020) UTI only MTDD
--- NOTE | 2021-06-08 14:44 | P.PN ---
Subjective This is a very pleasant 71-year-old patient, follows with visiting physicians . Chronic stable medical conditions include diabetes, hypertension, hyperlipidemia, CAD with a prior [place], bypass. Patient had a stroke in 2017. Patient has resultant left-sided weakness. Does use a walker. Has chronic dysarthria. 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 Patient has regulated bowels. Has some control. Able to feed himself. Patient was sent in by the family because of altered mental status. Patient stated that is just not feeling well. Denied any fever and chills. No cough or shortness of breath. Patient had previous hip surgery. Surgery was done by Dr. bassett.. Left hip is bothering him more. His appetite is fair. No chest pain no shortness of breath. Patient does speak slowly but is able to give a full history. Admitted with acute UTI, dehydration, some flareup of left hip pain. June 06: Feeling better. Family is requesting inpatient rehab. mobile home lot utility worker consulted. On Keflex for UTI. ate about 100% of his lunch. 06/07/21 This is a pleasant 71 years old male with multiple medical problems. Presents with altered mental status most likely secondary to acute urinary tract infection treated with ceftriaxone and switched to Keflex, patient improved and currently is awake alert and oriented and answers questions appropriately, he denies from any complaint and he denies any pain 0/10. Earlier there was s uspicion for left hip pain and orthopedic evaluated the patient, his left hip arthroplasty is stable on x-ray and orthopedic cleared him for discharge and follow-up as an outpatient. Patient currently with no hip pain Workup done with a neurological evaluation showing folate deficiency which is been replaced. Other than that workup was unremarkable including A1c of 5.5% normal B12 of 575. Negative carotid duplex for significant stenosis. Ejection fraction is 55-60%. And negative chest x-ray and CT of the brain for acute process per reports Physical therapy and occupational therapy recommended home health care, 24-hour care versus ECF Objective - Vital Signs Vital signs: Vital Signs Temp 97.6 F 06/07/21 08:14 Pulse 71 06/07/21 08:14 Resp 17 06/07/21 08:14 BP 127/66 06/07/21 08:14 Pulse Ox 97 06/07/21 08:14 Intake & Output 06/06/21 06/07/21 06/07/21 18:59 06:59 18:59 Intake Total 320 Output Total 450 Balance -450 320 Intake: Oral 320 Output: Urine 450 Other: Voiding Method External Catheter External Catheter - Exam -GENERAL: The patient is alert and oriented x3, not in any acute distress. Well developed, well nourished. Mild duodenal weakness HEENT: Pupils are round and equally reacting to light. EOMI. No scleral icterus. No conjunctival pallor. Normocephalic, atraumatic. No pharyngeal erythema. No thyromegaly. CARDIOVASCULAR: S1 and S2 present. No murmurs, rubs, or gallops. PULMONARY: Chest is clear to auscultation, no wheezing or crackles. ABDOMEN: Soft, nontender, nondistended, normoactive bowel sounds. No palpable organomegaly. MUSCULOSKELETAL: No joint swelling or deformity. EXTREMITIES: No cyanosis, clubbing, or pedal edema. NEUROLOGICAL: Gross neurological examination did not reveal any focal deficits. SKIN: No rashes. no petechiae. - Labs CBC & Chem 7: 06/05/21 07:55 06/05/21 07:55 Labs: Abnormal Lab Results - Last 24 Hours (Table) 06/06/21 Range/Units 06:43 Folate 2.50 L (4.40-31.00) ng/mL Assessment and Plan Assessment: Metabolic encephalopathy most likely secondary to UTI Acute urinary tract infection Ramirez deficiency History of hip fracture status post left hip arthroplasty History of CVA/TIA Diabetes mellitus Hypertension Hyperlipidemia Plan: This is a pleasant 71 years old male who presents with AMS and UTI and Ramirez deficiency Continue with Keflex Recheck urinalysis and bladder scan Follow-up vitamin B6 level Neurologically clear Continue with folate Labs and medication were reviewed.. Continue same treatment. Continue with symptomatic treatment. Resume home medication. Monitor lytes and vitals. DVT and GI prophylaxis. Further recommendations as per clinical course of the patient DVT prophylaxis: Subcutaneous Lovenox GI Prophylaxis: Poi PT/OT: As above Possible discharge in 24-48 hours
--- NOTE | 2021-06-08 14:47 | P.PN ---
Subjective This is a very pleasant 71-year-old patient, follows with visiting physicians . Chronic stable medical conditions include diabetes, hypertension, hyperlipidemia, CAD with a prior [place], bypass. Patient had a stroke in 2017. Patient has resultant left-sided weakness. Does use a walker. Has chronic dysarthria. 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 Patient has regulated bowels. Has some control. Able to feed himself. Patient was sent in by the family because of altered mental status. Patient stated that is just not feeling well. Denied any fever and chills. No cough or shortness of breath. Patient had previous hip surgery. Surgery was done by Dr. bassett.. Left hip is bothering him more. His appetite is fair. No chest pain no shortness of breath. Patient does speak slowly but is able to give a full history. Admitted with acute UTI, dehydration, some flareup of left hip pain. June 06: Feeling better. Family is requesting inpatient rehab. lawn care worker consulted. On Keflex for UTI. ate about 100% of his lunch. 06/07/21 This is a pleasant 71 years old male with multiple medical problems. Presents with altered mental status most likely secondary to acute urinary tract infection treated with ceftriaxone and switched to Keflex, patient improved and currently is awake alert and oriented and answers questions appropriately, he denies from any complaint and he denies any pain 0/10. Earlier there was s uspicion for left hip pain and orthopedic evaluated the patient, his left hip arthroplasty is stable on x-ray and orthopedic cleared him for discharge and follow-up as an outpatient. Patient currently with no hip pain Workup done with a neurological evaluation showing folate deficiency which is been replaced. Other than that workup was unremarkable including A1c of 5.5% normal B12 of 575. Negative carotid duplex for significant stenosis. Ejection fraction is 55-60%. And negative chest x-ray and CT of the brain for acute process per reports Physical therapy and occupational therapy recommended home health care, 24-hour care versus ECF 06/08/2021 Patient is fully awake and oriented he knows he is in the hospital, [facility]. He notes June 2001 instead of 2020, he remembers the name of the president. He specific symptoms and he is oriented to the surrounding. Hemodynamically and vitals are stable. Repeat urine analysis showing improvement and UTI but not complete resolution, patient is kept on Keflex. Continue with folic acid Cc IV fluid Patient is cleared medically for discharge pending [facility] Objective - Vital Signs Vital signs: Vital Signs Temp 98.7 F 06/08/21 08:00 Pulse 73 06/08/21 08:00 Resp 17 06/08/21 08:00 BP 158/84 06/08/21 08:00 Pulse Ox 95 06/08/21 08:00 Intake & Output 06/07/21 06/08/21 06/08/21 18:59 06:59 18:59 Intake Total 480 Output Total 1300 200 Balance -1300 280 Intake: Oral 480 Output: Urine 1300 200 Other: Voiding Method External Catheter Urinal Diaper # Voids 1 - Exam -GENERAL: The patient is alert and oriented x3, not in any acute distress. Well developed, well nourished. Mild duodenal weakness HEENT: Pupils are round and equally reacting to light. EOMI. No scleral icterus. No conjunctival pallor. Normocephalic, atraumatic. No pharyngeal erythema. No thyromegaly. CARDIOVASCULAR: S1 and S2 present. No murmurs, rubs, or gallops. PULMONARY: Chest is clear to auscultation, no wheezing or crackles. ABDOMEN: Soft, nontender, nondistended, normoactive bowel sounds. No palpable organomegaly. MUSCULOSKELETAL: No joint swelling or deformity. EXTREMITIES: No cyanosis, clubbing, or pedal edema. NEUROLOGICAL: Gross neurological examination did not reveal any focal deficits. SKIN: No rashes. no petechiae. - Labs CBC & Chem 7: 06/05/21 07:55 06/05/21 07:55 Labs: Abnormal Lab Results - Last 24 Hours (Table) 06/06/21 06/07/21 Range/Units 06:43 20:48 Vitamin B6 4 L (5-50) ug/L Urine Ketones 1+ H (Negative) Urine Blood Trace H (Negative) Ur Leukocyte Esterase Small H (Negative) Urine WBC 8 H (0-5) /hpf Urine Mucus Rare H (None) /hpf Assessment and Plan Assessment: Metabolic encephalopathy most likely secondary to UTI Acute urinary tract infection Ramirez deficiency History of hip fracture status post left hip arthroplasty History of CVA/TIA Diabetes mellitus Hypertension Hyperlipidemia Plan: This is a pleasant 71 years old male who presents with AMS and UTI and Ramirez deficiency Continue with Keflex Follow-up vitamin B6 level Neurologically clear Continue with folate Labs and medication were reviewed.. Continue same treatment. Continue with symptomatic treatment. Resume home medication. Monitor lytes and vitals. DVT and GI prophylaxis. Further recommendations as per clinical course of the patient DVT prophylaxis: Subcutaneous Lovenox GI Prophylaxis: Poi PT/OT: As above Patient is medically stable for discharge pending insurance approval for placement
[2021-06-08] MEDS: GABAPENTIN 300 MG CAP PO SCH (20:46)
[2021-06-08] MEDS: ATORVASTATIN 20 MG TAB PO SCH (20:46)
--- NOTE | 2021-06-09 00:04 | P.PN ---
Subjective Progress Note Date: 06/08/21 Patient was seen for a follow-up. Offers no new complaints. Denies headache, no new focal symptoms. Patient absolutely denies any worsening of weakness of the left side. Patient denies any loss of memory, or episode of seizure-like activity prior to arrival. He remembers everything in detail. He states that he came to the hospital just because his hips were hurting badly. Objective - Vital Signs Vital signs: Vital Signs Temp 97.9 F 06/08/21 20:00 Pulse 81 06/08/21 20:00 Resp 20 06/08/21 20:00 BP 148/82 06/08/21 20:00 Pulse Ox 97 06/08/21 20:00 Intake & Output 06/08/21 06/08/21 06/09/21 06:59 18:59 06:59 Intake Total 480 Output Total 200 200 Balance 280 -200 Intake: Oral 480 Output: Urine 200 200 Other: Voiding Method External Catheter Urinal External Catheter Diaper # Voids 1 - Exam Patient is laying comfortably in the bed. Patient's mental status, speech and language functions are normal. Patient has mild dysarthria. No aphasia. Attention, concentration and fund of knowledge is adequate. Cranial nerves significant for mild left-sided visual field neglect. Extraocular muscles are intact. Patient has slightly decreased left nasolabial fold. Tongue protrudes the midline. Hearing is normal. Patient has spastic left hemiparesis on the left. Patient has very minimal movement of the very stiff left upper extremity. Sensory touch revealed neglect on double simultaneous stimulation on the left. - Labs CBC & Chem 7: 06/05/21 07:55 06/05/21 07:55 Labs: Abnormal Lab Results - Last 24 Hours (Table) 06/06/21 Range/Units 06:43 Vitamin B6 4 L (5-50) ug/L Assessment and Plan Assessment: * Altered mental status, now seems to have resolved. Possible mild UTI. * Chronic left spastic hemiparesis. Patient denies any worsening of baseline left hemiparesis. 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 * History of normal pressure hydrocephalus, known as far as June 2019, not treated surgically. * Diabetes, controlled, as last A1c 5.3 on 12/25/2018. * Folate deficiency * Hypertension * Obesity Plan: * Hemoglobin A1c 5.5, B12 normal at 575, methylmalonic acid normal 0.15, folate is very low 2.5. Patient started on folate replacement. B6 is low 4 (5-50). We will start vitamin B6 50 mg daily. * Patient has mild UTI, currently started on ceftriaxone 1 g IV push and now on cephalexin. * Continue aspirin 81 mg, Plavix 75 mg and Lipitor 20 mg. * Carotid Doppler revealed moderate to severe atherosclerotic changes without hemodynamically significant focal stenosis in either ICA. Antegrade flow in both vertebral arteries.. * 2-D echo revealed normal left-ventricular size. Moderate concentric LVH. EF is between 55-60%. Right ventricle was mildly enlarged. Trace to mild AR. * Patient has mild hydrocephalus. May consider follow-up with a neurosurgeon as an outpatient. * Patient on Lovenox for DVT prophylaxis. * Discussed with patient about getting MRI of the brain to rule out any stroke, but patient declined. He states that he has to put completely to sleep for an MRI. * PT OT evaluate gait. * Neurologically clear.
[2021-06-09] MEDS: TAMSULOSIN 0.4 MG CAP.ER.24H PO SCH ×2 (08:04→20:36)
[2021-06-09] MEDS: PANTOPRAZOLE 40 MG TABLET PO SCH (08:04)
[2021-06-09] MEDS: ENOXAPARIN 40 MG/0.4 ML SYRINGE SQ SCH (08:04)
[2021-06-09] MEDS: CEPHALEXIN 250 MG CAP PO SCH ×4 (08:04→21:27)
[2021-06-09] MEDS: ASPIRIN 81 MG PO SCH (08:04)
[2021-06-09] MEDS: FOLIC ACID 1 MG TAB PO SCH (08:04)
[2021-06-09] MEDS: VENLAFAXINE HCL ER 37.5 MG CAP PO SCH (08:04)
[2021-06-09] MEDS: PYRIDOXINE 50 MG TAB PO SCH (08:04)
[2021-06-09] MEDS: CLOPIDOGREL 75 MG TAB PO SCH (08:04)
[2021-06-09] MEDS ORDERED: BACITRACIN/POLYMYX 500-10,000 UNIT/GM OINT 14 GM TUBE TOPICAL SCH (09:00)
[2021-06-09] MEDS: NYSTATIN 100,000 UNIT/GM POWD 15 GM TOPICAL SCH ×2 (11:09→21:00)
[2021-06-09 11:50] LABS: Appearance,Urine Clear (Clear); Bacteria,Urine Rare /hpf; Bilirubin,Urine Negative (Negative); Blood,Urine Negative (Negative); Color,Urine Yellow; Glucose,Urine (UA) Negative (Negative); Ketones,Urine Negative (Negative); Leukocyte Esterase,Urine Small (Negative); Mucus,Urine Rare /hpf; Nitrite,Urine Negative (Negative); Protein,Urine Negative (Negative); Specific Gravity,Urine 1.007 (1.001-1.035); Squamous Epithelial Cell,Urine 4 /hpf (0-4); Urobilinogen,Urine <2.0 mg/dL (<2.0); WBC,Urine 6 /hpf (0-5)
[2021-06-09] MEDS ORDERED: FLUCONAZOLE 150 MG TAB PO STA (13:25)
--- NOTE | 2021-06-09 13:28 | P.PN ---
Subjective This is a very pleasant 71-year-old patient, follows with visiting physicians . Chronic stable medical conditions include diabetes, hypertension, hyperlipidemia, CAD with a prior [place], bypass. Patient had a stroke in 2017. Patient has resultant left-sided weakness. Does use a walker. Has chronic dysarthria. 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 Patient has regulated bowels. Has some control. Able to feed himself. Patient was sent in by the family because of altered mental status. Patient stated that is just not feeling well. Denied any fever and chills. No cough or shortness of breath. Patient had previous hip surgery. Surgery was done by Dr. bassett.. Left hip is bothering him more. His appetite is fair. No chest pain no shortness of breath. Patient does speak slowly but is able to give a full history. Admitted with acute UTI, dehydration, some flareup of left hip pain. June 06: Feeling better. Family is requesting inpatient rehab. 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 On Keflex for UTI. ate about 100% of his lunch. 06/07/21 This is a pleasant 71 years old male with multiple medical problems. Presents with altered mental status most likely secondary to acute urinary tract infection treated with ceftriaxone and switched to Keflex, patient improved and currently is awake alert and oriented and answers questions appropriately, he denies from any complaint and he denies any pain 0/10. Earlier there was s uspicion for left hip pain and orthopedic evaluated the patient, his left hip arthroplasty is stable on x-ray and orthopedic cleared him for discharge and follow-up as an outpatient. Patient currently with no hip pain Workup done with a neurological evaluation showing folate deficiency which is been replaced. Other than that workup was unremarkable including A1c of 5.5% normal B12 of 575. Negative carotid duplex for significant stenosis. Ejection fraction is 55-60%. And negative chest x-ray and CT of the brain for acute process per reports Physical therapy and occupational therapy recommended home health care, 24-hour care versus [facility] 06/08/2021 Patient is fully awake and oriented he knows he is in the hospital, [facility]. He notes June 2001 instead of 2020, he remembers the name of the president. He specific symptoms and he is oriented to the surrounding. Hemodynamically and vitals are stable. Repeat urine analysis showing improvement and UTI but not complete resolution, patient is kept on Keflex. Continue with folic acid Cc IV fluid Patient is cleared medically for discharge pending [facility]09[facility]21 Patient clinically stable however he has some redness in his left side of the trunk, more around left armpit and left groin suspicious for fungal infection, it is itching with superficial excoriation wounds. Patient is already on Keflex. We will at bacitracin ointment, topical nystatin and one-time dose of fluconazole. Vitamin B6 has been replaced. Other than that he remains on aspirin and Plavix. He is hemodynamically stable. No other complaints. IV fluids. Repeat urinalysis still mildly abnormal and h e kept on Keflex started by Dr. viveros [employer], Possible Discharge Tomorrow to [facility] for Pl[facility] Objective - Vital Signs Vital signs: Vital Signs Temp 97.9 F 06/09/21 07:44 Pulse 76 06/09/21 07:44 Resp 17 06/09/21 07:44 BP 136/79 06/09/21 07:44 Pulse Ox 96 06/09/21 07:44 Intake & Output 06/08/21 06/09/21 06/09/21 18:59 06:59 18:59 Intake Total 1120 Output Total 200 475 Balance -200 645 Intake: Oral 1120 Output: Urine 200 475 Other: Voiding Method Urinal External Catheter External Catheter Diaper # Voids 1 # Bowel Movements 0 - Exam -GENERAL: The patient is alert and oriented x3, not in any acute distress. Well developed, well nourished. Mild duodenal weakness HEENT: Pupils are round and equally reacting to light. EOMI. No scleral icterus. No conjunctival pallor. Normocephalic, atraumatic. No pharyngeal erythema. No thyromegaly. CARDIOVASCULAR: S1 and S2 present. No murmurs, rubs, or gallops. PULMONARY: Chest is clear to auscultation, no wheezing or crackles. ABDOMEN: Soft, nontender, nondistended, normoactive bowel sounds. No palpable organomegaly. MUSCULOSKELETAL: No joint swelling or deformity. EXTREMITIES: No cyanosis, clubbing, or pedal edema. NEUROLOGICAL: Gross neurological examination did not reveal any focal deficits. SKIN: No rashes. no petechiae. - Labs CBC & Chem 7: 06/05/21 07:55 06/05/21 07:55 Labs: Abnormal Lab Results - Last 24 Hours (Table) 06/06/21 06/09/21 Range/Units 06:43 11:07 Vitamin B6 4 L (5-50) ug/L Ur Leukocyte Esterase Small H (Negative) Urine WBC 6 H (0-5) /hpf Urine Bacteria Rare H (None) /hpf Urine Mucus Rare H (None) /hpf Assessment and Plan Assessment: Metabolic encephalopathy most likely secondary to UTI Acute urinary tract infection Left groin and armpit fungal infection Ramirez deficiency History of hip fracture status post left hip arthroplasty History of CVA/TIA Diabetes mellitus Hypertension Hyperlipidemia Plan: This is a pleasant 71 years old male who presents with AMS and UTI and Ramirez deficiency Continue with Keflex Follow-up vitamin B6 level Neurologically clear Continue with folate. Add vitamin B6 Start menstruation, topical nystatin and fluconazole 1 Labs and medication were reviewed.. Continue same treatment. Continue with symptomatic treatment. Resume home medication. Monitor lytes and vitals. DVT and GI prophylaxis. Further recommendations as per clinical course of the patient DVT prophylaxis: Subcutaneous Lovenox GI Prophylaxis: Poi PT/OT: As above Possible discharge in 24 hours to 48 hours if he keeps improving
[2021-06-09] MEDS: BACITRACIN/POLYMYX 500-10,000 UNIT/GM OINT 14 GM TUBE TOPICAL SCH ×2 (16:27→21:27)
[2021-06-09 20:02] VITALS: RESP 16
[2021-06-09] MEDS: GABAPENTIN 300 MG CAP PO SCH (20:36)
[2021-06-09] MEDS: ATORVASTATIN 20 MG TAB PO SCH (20:36)
[2021-06-10] MEDS: TAMSULOSIN 0.4 MG CAP.ER.24H PO SCH (08:07)
[2021-06-10] MEDS: NYSTATIN 100,000 UNIT/GM POWD 15 GM TOPICAL SCH (08:07)
[2021-06-10] MEDS: VENLAFAXINE HCL ER 37.5 MG CAP PO SCH (08:07)
[2021-06-10] MEDS: CLOPIDOGREL 75 MG TAB PO SCH (08:07)
[2021-06-10] MEDS: ENOXAPARIN 40 MG/0.4 ML SYRINGE SQ SCH (08:07)
[2021-06-10] MEDS: ASPIRIN 81 MG PO SCH (08:07)
[2021-06-10] MEDS: FOLIC ACID 1 MG TAB PO SCH (08:07)
[2021-06-10] MEDS: PANTOPRAZOLE 40 MG TABLET PO SCH (08:07)
[2021-06-10] MEDS: PYRIDOXINE 50 MG TAB PO SCH (08:08)
[2021-06-10] MEDS: CEPHALEXIN 250 MG CAP PO SCH ×2 (08:08→13:12)
[2021-06-10] MEDS: BACITRACIN/POLYMYX 500-10,000 UNIT/GM OINT 14 GM TUBE TOPICAL SCH (08:09)
[2021-06-10 11:34] VITALS: BMI 25.8
--- NOTE | 2021-06-10 14:14 | P.DS ---
Providers Date of admission: 06/08/21 10:40 Attending physician: Joselito Ryan Consults: 06/05/21 11:04 Consult Physician Urgent Consulting Provider: Hardik Evangelista Consult Reason/Comments: Altered mental status Do you want consulting provider notified?: Yes 06/05/21 13:01 Consult Physician Routine Consulting Provider: Ángel Tran Consult Reason/Comments: L hip pain Do you want consulting provider notified?: Yes Primary care physician: Pedro Vazquez MD Hospital Course: Diagnoses: Metabolic encephalopathy secondary to UTI, resolved Acute urinary tract infection Left groin and armpit fungal infection, significantly improved Folate deficiency Vitamin B6 deficiency History of hip fracture status post left hip arthroplasty History of CVA/TIA Diabetes mellitus Hypertension Hyperlipidemia Hospital course: This is a very pleasant 71-year-old patient, follows with visiting physicians . Chronic stable medical conditions include diabetes, hypertension, hyperlipidemia, CAD with a prior [place], bypass. Patient had a stroke in 2017. Patient has resultant left-sided weakness. Does use a walker. Has chronic dysarthria. 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 Patient has regulated bowels. Has some control. Able to feed himself. Patient was sent in by the family because of altered mental status. Patient stated that he was just not feeling well. Patient was found to have a urinary tract infection and was treated with oral complex showing significant improvement and back to his baseline. Neurologist evaluated the patient workup showing folate deficiency and vitamin B6 deficiency with this been replaced. Other workup like carotid duplex and echocardiogram were unremarkable with ejection fraction of 55-60%. Patient back to his baseline however family wanted patient to go to [facility] for placement to which he agreeable to. Patient also developed redness was excoriation blanchard in the left armpit, left the trunk and left groin secondary to fungal infection most likely Eloise responded very well to nystatin and fluconazole 1. The day of discharge patient denies chest pain. No dyspnea. No abdominal pain. No change in urine or bowel habits. No fever. Patient was cleared for discharge by neurologist. Problems and management plan were discussed with the patient and he verbalized understanding and acceptance Patient was found stable and can be discharged home however he needs follow-up as an outpatient. Patient was instructed to follow up with PCP within one week and patient agrees Physical exam Gen: patient is a AAOx3, no distress. Generally weak CVS: S1-S2, RRR, no murmur Lungs: B/L CTA, no wheezing Abdomen: soft, no distention, no tenderness, positive bowel sounds Extremity: no leg edema or induration Skin: Moving left trunk and armpit cellulitis. No petechia Time spent more than 35 minutes Plan - Discharge Summary Discharge Rx Participant: No New Discharge Prescriptions: No Action Insulin Glargine,Hum.rec.anlog [Lantus Solostar Pen] 40 unit SQ DAILY Clopidogrel [Plavix] 75 mg PO DAILY Aspirin EC [Ecotrin Low Dose] 81 mg PO DAILY atenoloL [Tenormin] 25 mg PO DAILY ALPRAZolam [Xanax] 0.5 mg PO DAILY PRN PRN Reason: Anxiety Venlafaxine HCl ER [Effexor XR] 37.5 mg PO DAILY Simvastatin [Zocor] 40 mg PO HS Acetaminophen [Tylenol] 325 mg PO DAILY PRN PRN Reason: Pain Omeprazole [PriLOSEC] 20 mg PO DAILY Tamsulosin HCl [Flomax] 0.4 mg PO BID Nitroglycerin Sl Tabs [Nitrostat] 0.4 mg SUBLINGUAL Q5M PRN PRN Reason: Chest Pain Gabapentin 300 mg PO TID lisinopriL [Zestril] 10 mg PO DAILY Melatonin 3 mg PO HS PRN PRN Reason: sleep Discharge Medication List ALPRAZolam [Xanax] 0.5 mg PO DAILY PRN 04/09/19 [History] Aspirin EC [Ecotrin Low Dose] 81 mg PO DAILY 04/09/19 [History] Clopidogrel [Plavix] 75 mg PO DAILY 04/09/19 [History] Insulin Glargine,Hum.rec.anlog [Lantus Solostar Pen] 40 unit SQ DAILY 04/09/19 [History] atenoloL [Tenormin] 25 mg PO DAILY 04/09/19 [History] Simvastatin [Zocor] 40 mg PO HS 04/10/19 [History] Venlafaxine HCl ER [Effexor XR] 37.5 mg PO DAILY 04/10/19 [History] Acetaminophen [Tylenol] 325 mg PO DAILY PRN 02/20/20 [History] Omeprazole [PriLOSEC] 20 mg PO DAILY 06/20/20 [History] Tamsulosin HCl [Flomax] 0.4 mg PO BID 02/20/20 [History] Nitroglycerin Sl Tabs [Nitrostat] 0.4 mg SUBLINGUAL Q5M PRN 02/24/21 [History] Gabapentin 300 mg PO TID 06/05/21 [History] Melatonin 3 mg PO HS PRN 06/05/21 [History] lisinopriL [Zestril] 10 mg PO DAILY 06/05/21 [History] Follow up Appointment(s)/Referral(s): Pedro Vazquez MD [Primary Care Provider] - 1-2 days Ángel Tran MD [Medical Doctor] - 06/22/21 1:35 pm Activity/Diet/Wound Care/Special Instructions: [facility]
[2021-06-10 14:39] VITALS: BP 157/87; PULSE 84; TEMP 97
[2021-06-10] MEDS ORDERED: INSULIN ASPART (NovoLOG) 100 UNIT/ML VIAL SQ SCH (17:30)
== END 2021-06-10 16:20 | DRG 689 ==
LOC: EC 07:29 → 4SSUR 11:04 → OBSVTOIN 06-08 10:40
PROVIDERS: ADMIT Hospitalist; ATTEND Hospitalist
DX: N30.90 Cystitis, unspecified without hematuria (principal); G93.41 Metabolic encephalopathy; I69.354 Hemiplegia and hemiparesis following cerebral infarction affecting left non-dominant side; G91.2 (Idiopathic) normal pressure hydrocephalus; E11.9 Type 2 diabetes mellitus without complications; E53.1 Pyridoxine deficiency; E53.8 Deficiency of other specified B group vitamins; E66.9 Obesity, unspecified; E78.5 Hyperlipidemia, unspecified; E86.0 Dehydration; F32.9 Major depressive disorder, single episode, unspecified; F43.10 Post-traumatic stress disorder, unspecified; I10 Essential (primary) hypertension; I25.10 Atherosclerotic heart disease of native coronary artery without angina pectoris; I25.2 Old myocardial infarction; Z20.822 Contact with and (suspected) exposure to COVID-19; I44.0 Atrioventricular block, first degree; I45.10 Unspecified right bundle-branch block; K21.9 Gastro-esophageal reflux disease without esophagitis; N40.0 Benign prostatic hyperplasia without lower urinary tract symptoms; Z79.02 Long term (current) use of antithrombotics/antiplatelets; Z79.82 Long term (current) use of aspirin; Z79.899 Other long term (current) drug therapy; Z87.81 Personal history of (healed) traumatic fracture; Z87.891 Personal history of nicotine dependence; Z95.1 Presence of aortocoronary bypass graft; Z96.642 Presence of left artificial hip joint; M25.552 Pain in left hip; I69.322 Dysarthria following cerebral infarction
CPT/HCPCS: 36415; 70450; 71046; 73501; 80053; 81001; 82607; 82746; 83036; 83605; 83921; 84207; 84484; 85025; 85610; 85652; 85730; 86140; 87635; 93005; 93306; 93880; 96360; 96361; 99285